=== PATIENT | female | born 2000 | race Caucasian/White ===

== ENCOUNTER 2020-09-08 09:19 | Outpatient (REF) | payer MEDICAID, SELFPAY ==
[2020-09-08 19:44] LABS: CT PCR NOT DETECTED (Not Detect.); NG PCR NOT DETECTED (Not Detect.)
== END 2020-09-08 09:20 | disposition home or self-care (01) ==
LOC: HO.LAB 09:19
PROVIDERS: PCP Family Medicine; Visit Provider Advanced Practice Midwife
DX: Z30.09 Encounter for other general counseling and advice on contraception (principal); N93.9 Abnormal uterine and vaginal bleeding, unspecified; R10.2 Pelvic and perineal pain; Z20.2 Contact with and (suspected) exposure to infections with a predominantly sexual mode of transmission
CPT/HCPCS: 87491; 87591; 99212

== ENCOUNTER 2020-10-20 16:13 | Outpatient (REF) | payer MEDICAID, SELFPAY | END 2020-10-20 16:14 | disposition home or self-care (01) | LOC: HO.LAB 16:13 | PROVIDERS: Visit Provider Internal Medicine | DX: Z20.822 Contact with and (suspected) exposure to COVID-19 (principal) | CPT/HCPCS: 36415; C9803; U0003 ==

== ENCOUNTER → 2021-04-13 11:29 | Outpatient (BNVA) | payer MEDICAID, SELFPAY | PROVIDERS: PCP Family Medicine; Visit Provider Advanced Practice Midwife ==

== ENCOUNTER → 2021-04-14 11:47 | Outpatient (BNVA) | payer MEDICAID, SELFPAY | PROVIDERS: PCP Family Medicine; Visit Provider Advanced Practice Midwife ==

== ENCOUNTER 2021-06-09 19:22 | Emergency (ER) | payer MEDICAID, SELFPAY ==
--- NOTE | 2021-06-09 20:06 | PC.NURSE ---
called for campaign management specialist
[2021-06-09 20:16] VITALS: BP 105/56; PULSE 74; RESP 17; TEMP 36.8; O2SAT 100
[2021-06-09 20:36] LABS: COVID-19 Test Positive (Negative); IDNOW Serial# 08D9AD1C; IDNOW Serial# 9DD0AD1C; Strep A Nucleic Acid Negative (Negative)
--- NOTE | 2021-06-09 20:38 | ED_ITS ---
HPI - General Adult General Chief complaint: General Medical Stated complaint: sore throat Time Seen by Provider: 06/09/21 20:38 Source: patient Mode of arrival: ambulatory Limitations: language barrier History of Present Illness HPI narrative: 21 y/o female with no medical history presents to the ER with 3 days of sore throat. She reports pain is worse when trying to eat or drink. It feels scratchy when she tries to swallow but she is able to eat and drink okay. No fever or chills. No sick contacts. She is not vaccinated against COVID. complaint: sore throat Onset (ago): day(s) (3) Location: mouth Radiation: non-radiation Severity: moderate Severity scale (1-10): 6 Quality: aching and sharp Pain Consistency: intermittent Relieving factors: none Exacerbating factors: eating Associated symptoms: denies other symptoms Treatments prior to arrival: none Related Data Home Medications Medication Instructions Recorded Confirmed ferrous sulfate 325 mg (65 mg 325 mg PO DAILY 09/08/20 09/08/20 iron) tablet Previous Rx's Medication Instructions Recorded medroxyprogesterone 150 mg/mL 150 mg IM [id number] #1 ml 04/14/21 intramuscular suspension (Depo-Provera) Allergies Allergy/AdvReac Type Severity Reaction Status Date / Time SEAFOOD Allergy Unknown ANAPHYLAXIS Uncoded 07/03/20 19:07 Shell fish Allergy Unknown swelling Uncoded 05/01/20 00:00 Review of Systems Constitutional: Constitutional: Denies body ache(s), Denies chills, Denies fever(s) and Denies headache(s) Eyes: Eyes: Reports no additional eye complaints ENT: Reports Normal hearing present, Denies headache(s), Denies lip swelling, Denies nasal congestion, Denies neck pain, Denies nose pain, Reports sore throat and Denies throat swelling Cardiovascular: Cardiovascular: Denies chest pain and Denies dyspnea Respiratory: Respiratory: Denies cough and Denies dyspnea Gastrointestinal: Gastrointestinal: Denies abdominal pain, Denies nausea and Denies vomiting Musculoskeletal: Musculoskeletal: Denies myalgias and Denies neck pain Neurologic: Reports Normal hearing present and Denies headache(s) Psychiatric: Psychiatric: Reports anxiety Allergic/Immunologic: Allergic/Immunologic: Denies lip swelling and Denies throat swelling [facility] Past Medical History Medical History (Updated 06/09/21 @ 20:39 by JULIET Clifton) No pertinent past medical history Family History Family History Maternal Grandmother Diabetes mellitus Paternal Grandfather Diabetes mellitus HTN (hypertension) Maternal Grandfather HTN (hypertension) Social History Social History Alcohol intake: never Advance Directives: No Advance Directives Information Provided: No Patient : No Gender identity: Female Physical Exam Vital Signs: Vital Signs: Last Vital Signs Temp 98.3 F 06/09/21 20:16 Pulse 74 06/09/21 20:16 Resp 17 06/09/21 20:16 BP 105/56 L 06/09/21 20:16 Pulse Ox 100 06/09/21 20:16 Body Mass Index 20.0 Const: General: cooperative, healthy appearing, comfortable and no acute distress Nutritional Appearance: average body habitus Orientation/consciousness: patient oriented x3 HENMT: Head: Yes normal to inspection Ears: hearing grossly normal bilaterally and external ears normal General nose exam: Normal external nose present and Normal nares present Face and sinus: Yes normal facial exam and Yes sinuses nontender Mouth: Normal oral and palatal mucosa present, lip normal, tongue normal and moist mucous membranes Teeth and gingiva: dentition normal and gingiva normal Throat: Yes uvula midline and Yes posterior oropharynx abnormal (bilateral tonsillar swelling and erythema without exudate) Eyes: General: appearance normal, both eyes and all related structures Neck: Neck: Yes normal visual inspection, Yes no lymphadenopathy and Yes trachea midline Chest: Chest palpation & inspection: normal inspection of the chest Resp: Effort & Inspection: normal respiratory effort and able to speak in complete sentences Auscultation: clear to auscultation bilaterally Cardio: Rate: regular rate Rhythm: regular rhythm Heart sounds: S1 normal heart sound present and S2 normal heart sound present Skin: General skin exam: no rashes or lesions noted Neuro: General: patient oriented x3 Cranial nerves: Yes Normal hearing present Extrem: General: Yes normal to inspection and Yes no calf tenderness Course Course Course Narrative: 21 yo female presenting with sore throat x3 days. Nontoxic appearing. VS are stable. Tonsils are swollen and erythematous, normal voice and handling secretions normally. No exudates or evidence of abscess. Strep and COVID pending. Reevaluation(s) Reevaluation #1: Strep NEG and COVID POSITIVE. Used temporary staff accountant to discuss results, management and warning signs to prompt urgent re-evaluation. Stable for evaluation. Medical Decision Making Lab Data Labs: Lab Results 06/09/21 06/09/21 Range/Units 20:23 20:23 COVID-19 ([facility]) Positive A (Negative) COVID-19 Clin Com See Note S. pyogenes GrpA DAYANA Negative (Negative) Critical Care Time Critical Care Time Critical Care Time: No Discharge Plan Discharge Clinical Impression: COVID-19 Patient Disposition: Home, Self-Care Instructions: COVID-19 (Coronavirus Disease 2019) (ED) Additional Instructions: You were found to be COVID-19 POSITIVE today. Your oxygen levels were normal. Rest. Drink plenty of fluids. Do not go out in public for the next 10 days. Take over the counter cold/flu medications as needed for your symptoms. Take Tylenol and/or Motrin as needed for fevers and body aches. Follow up with your doctor this week. If you shortness of breath worsens , if you develop difficulty breathing or any other concerning symptom come back to the ER for further evaluation. Prescriptions: No Action ferrous sulfate 325 mg (65 mg iron) tablet 325 mg PO DAILY RF: 0 medroxyprogesterone [Depo-Provera] 150 mg/mL suspension 150 mg IM [id number] Qty: 1 RF: 3 Interventions: ED Discharge Assessment Last Done: 06/09/21 21:15 Print Language: Cape Verdean
== END 2021-06-09 21:18 | disposition home or self-care (01) ==
PROVIDERS: Emergency Provider Emergency Medicine; PCP Family Medicine
DX: U07.1 COVID-19 (principal)
CPT/HCPCS: 36415; 87635; 87651; 99283

== ENCOUNTER 2021-07-07 16:43 | Emergency (ER) | payer MEDICAID, SELFPAY ==
[2021-07-07 18:53] VITALS: BP 119/67; PULSE 56; RESP 18; TEMP 37.2; O2SAT 99; BMI 18.8
[2021-07-07 19:25] LABS: COVID-19 Test Negative (Negative)
[2021-07-07 21:17] VITALS: BP 114/71; PULSE 58; RESP 20; TEMP 36.8; O2SAT 100
--- NOTE | 2021-07-07 21:42 | ED_ITS ---
HPI - General Adult General Chief complaint: General Medical Stated complaint: Sore thrat Time Seen by Provider: 07/07/21 21:14 Source: patient Mode of arrival: ambulatory Limitations: no limitations History of Present Illness HPI narrative: Patient presents to ED for loss of taste for couple days and slight headache. Patient was positive for COVID in mid May. Patient states her friend who she lives with also having similar symptoms consist of loss of taste. Denies any fever, chest pain, shortness of breath. Related Data Home Medications Medication Instructions Recorded Confirmed ferrous sulfate 325 mg (65 mg 325 mg PO DAILY 09/08/20 09/08/20 iron) tablet Previous Rx's Medication Instructions Recorded medroxyprogesterone 150 mg/mL 150 mg IM [id number] #1 ml 04/14/21 intramuscular suspension (Depo-Provera) Allergies Allergy/AdvReac Type Severity Reaction Status Date / Time SEAFOOD Allergy Unknown ANAPHYLAXIS Uncoded 07/03/20 19:07 Shell fish Allergy Unknown swelling Uncoded 05/01/20 00:00 Review of Systems Review of Systems: Yes all other systems are reviewed and are negative Constitutional: Constitutional: Reports as per HPI and Reports no additional constitutional complaints Eyes: Eyes: Reports as per HPI and Reports no additional eye complaints ENT: Reports system reviewed and no additional complaints, except as documented and Reports as per HPI Comments: loss of smell and headache Cardiovascular: Cardiovascular: Reports as per HPI and Reports no additional cardiovascular complaints Respiratory: Respiratory: Reports as per HPI and Reports no additional respiratory complaints Gastrointestinal: Gastrointestinal: Reports as per HPI and Reports no additional gastrointestinal complaints Musculoskeletal: Musculoskeletal: Reports no additional musculoskeletal complaints and Reports as per HPI Neurologic: Reports system reviewed and no additional complaints, except as documented and Reports as per HPI Psychiatric: Psychiatric: Reports no additional psychiatric complaints and Reports as per HPI Endocrine: Endocrine: Reports no additional endocrine complaints and Reports as per HPI [facility] Past Medical History Medical History (Updated 07/08/21 @ 00:02 by Juancarlos Torrez) No pertinent past medical history Family History Family History Maternal Grandmother Diabetes mellitus Paternal Grandfather Diabetes mellitus HTN (hypertension) Maternal Grandfather HTN (hypertension) Social History Social History Alcohol intake: never Advance Directives: No Advance Directives Information Provided: No Patient : No Gender identity: Female Physical Exam Vital Signs: Vital Signs: Last Vital Signs Temp 98.3 F 07/07/21 21:17 Pulse 58 07/07/21 21:17 Resp 20 07/07/21 21:17 BP 114/71 07/07/21 21:17 Pulse Ox 100 07/07/21 21:17 Body Mass Index 18.8 Const: General: cooperative, healthy appearing, comfortable, no acute distress, well developed, alert, awake and Physically active Orientation/consciousness: patient oriented x3 HENMT: Head: Yes normal to inspection, Yes No palpable skull fracture present, Yes normocephalic, Yes atraumatic and No abrasion Eyes: General: appearance normal, both eyes and all related structures Neck: Neck: Yes normal visual inspection, Yes full ROM, Yes no lymphadenopathy, Yes no meningeal signs, Yes trachea midline, Yes supple and No tender Chest: Chest palpation & inspection: normal inspection of the chest and normal palpation of entire chest wall Resp: Effort & Inspection: normal respiratory effort and able to speak in complete sentences Auscultation: clear to auscultation bilaterally Cardio: Jugular venous distension: no JVD Heart sounds: S1 normal heart sound present and S2 normal heart sound present GI: Inspection: Yes normal to inspection and No abdominal wall ecchymosis Palpation (GI): Soft to palpation, not firm, nontender, no guarding and not rigid : General: No CVA tenderness and Yes no CVA tenderness Back/Spine/Pelvis: Back: no CVA tenderness, No CVA tenderness and No back tenderness Skin: General skin exam: no rashes or lesions noted and elasticity normal Neuro: General: patient oriented x3, no meningeal signs and CN's II-XI intact bilaterally Cranial nerves: Yes CN's II-XII intact bilaterally Extrem: General: Yes normal to inspection and Yes full ROM Psych: Appearance: grossly normal, well kempt and not disheveled Course Course Course Narrative: Patient had COvid test ordered. Reevaluation(s) Reevaluation #1: Patient covid test is negative. Patient informed this may be continued side effects of covid. 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 negativa. Es posible que padezca s?ntomas continuos posteriores al COVID o que se trate de mary nueva infecci?n. Recomiende repetir la prueba en 72 horas si los s?ntomas empeoran. Andi un seguimiento con daly proveedor de atenci?n primaria. Regrese al servicio de urgencias si tiene dolor de pecho, dificultad para respirar, dolor de luis felipe, mareos o cualquier otro s?ntoma preocupante. Prescriptions: No Action ferrous sulfate 325 mg (65 mg iron) tablet 325 mg PO DAILY RF: 0 medroxyprogesterone [Depo-Provera] 150 mg/mL suspension 150 mg IM [id number] Qty: 1 RF: 3 Stand Alone Forms: Work/School Release Interventions: ED Discharge Assessment Last Done: 07/07/21 22:16 Discharge Date/Time: 07/07/21 22:19 Print Language: Turkish
== END 2021-07-07 22:19 | disposition home or self-care (01) ==
PROVIDERS: Emergency Provider Emergency Medicine Emergency Medical Services; PCP Family Medicine
DX: R43.8 Other disturbances of smell and taste (principal); Z20.822 Contact with and (suspected) exposure to COVID-19; Z86.16 Personal history of COVID-19; Z79.899 Other long term (current) drug therapy
CPT/HCPCS: 36415; 87635; 99283

== ENCOUNTER → 2021-09-03 11:26 | Outpatient (BNVA) | payer MEDICAID, SELFPAY | PROVIDERS: PCP Family Medicine; Visit Provider Advanced Practice Midwife ==

== ENCOUNTER → 2021-09-04 15:06 | Outpatient (BNVA) | payer MEDICAID, SELFPAY | PROVIDERS: PCP Family Medicine; Visit Provider Advanced Practice Midwife | DX: Z30.42 Encounter for surveillance of injectable contraceptive (principal); Z91.013 Allergy to seafood; Z23 Encounter for immunization | CPT/HCPCS: 96372; 99211 ==

== ENCOUNTER 2021-09-14 15:32 | Outpatient (REF) | payer MEDICAID, SELFPAY | END 2021-09-14 15:33 | disposition home or self-care (01) | LOC: HO.LAB 15:32 | PROVIDERS: Visit Provider Internal Medicine | DX: Z13.89 Encounter for screening for other disorder (principal) ==

== ENCOUNTER 2021-09-30 13:19 | Outpatient (REF) | payer MEDICAID, SELFPAY ==
[2021-10-01 01:29] LABS: CT PCR NOT DETECTED (Not Detect.); NG PCR NOT DETECTED (Not Detect.)
[2021-10-01 11:07] LABS: BV Int Neg Control Negative (Negative); BV Int Pos Control Positive (Positive)
== END 2021-09-30 13:20 | disposition home or self-care (01) ==
LOC: HO.LAB 13:19
PROVIDERS: PCP Family Medicine; Visit Provider Advanced Practice Midwife
DX: Z01.419 Encounter for gynecological examination (general) (routine) without abnormal findings (principal); B37.3 Candidiasis of vulva and vagina; Z91.013 Allergy to seafood; Z91.410 Personal history of adult physical and sexual abuse; Z11.59 Encounter for screening for other viral diseases; Z11.4 Encounter for screening for human immunodeficiency virus [HIV]; Z11.3 Encounter for screening for infections with a predominantly sexual mode of transmission
CPT/HCPCS: 87480; 87491; 87510; 87591; 87660; 99212

== ENCOUNTER → 2021-11-23 15:16 | Outpatient (BNVA) | payer MEDICAID, SELFPAY | PROVIDERS: PCP Family Medicine; Visit Provider Advanced Practice Midwife | DX: Z30.42 Encounter for surveillance of injectable contraceptive (principal) | CPT/HCPCS: 96372 ==

== ENCOUNTER 2021-11-25 13:43 | Outpatient (REF) | payer MEDICAID, SELFPAY ==
[2021-11-26 03:40] LABS: CT PCR NOT DETECTED (Not Detect.); NG PCR NOT DETECTED (Not Detect.)
[2021-11-26 09:20] LABS: BV Int Neg Control Negative (Negative); BV Int Pos Control Positive (Positive)
== END 2021-11-25 13:44 | disposition home or self-care (01) ==
LOC: HO.LAB 13:43
PROVIDERS: PCP Family Medicine; Visit Provider Advanced Practice Midwife
DX: Z01.411 Encounter for gynecological examination (general) (routine) with abnormal findings (principal); B37.3 Candidiasis of vulva and vagina; N89.8 Other specified noninflammatory disorders of vagina; Z20.2 Contact with and (suspected) exposure to infections with a predominantly sexual mode of transmission
CPT/HCPCS: 87255; 87480; 87491; 87510; 87591; 87660; 99212

== ENCOUNTER 2021-11-26 17:03 | Emergency (ER) | payer MEDICAID, SELFPAY ==
[2021-11-26 17:06] VITALS: BP 119/41; PULSE 79; RESP 18; TEMP 36.7; O2SAT 99; BMI 20.8
--- NOTE | 2021-11-26 17:53 | ED_ITS ---
HPI - Female Genitourinary General Chief complaint: General Medical Stated complaint: body rash Time Seen by Provider: 11/26/21 17:36 Source: patient Mode of arrival: ambulatory Limitations: language barrier (Gabonese-speaking, pediatric medical assistant utilized) History of Present Illness HPI Narrative: Patient is a 21-year-old female with past history of STI. She was evaluated by her surgery specialist doctor yesterday patient experiences vaginal itching of the brain and reasons to her right labia that were painful. She had testing for bacterial vaginosis, chlamydia, gonorrhea, and herpes. She was discharged home with a prescription for clotrimazole vaginal cream. She states that she used the same clotrimazole vaginal cream that she purchased [id number] for 4 days last week without any improvement in her symptoms. Today, she came to the emergency department as she is concerned because she continues to have vaginal itching with white and yellow discharge and discomfort. She reports that she has not been sexually active over the past 5 months. She does have a history of a chlamydial infection, for which she was treated 3 months ago. She denies any abnormal vaginal bleeding. Additionally, she is requesting a work note that states she may return to work on Tuesday11/30/2021 as her current note states she can return 12/01/2021. MD elicited complaint: vaginal discharge, possible STD, genital rash and genital itching Pertinent past history: STI/STD Onset (ago): day(s) Location of symptoms: external genitalia Vaginal discharge: white, yellow and thick/cheesy Vaginal bleeding: none Associated symptoms: denies other symptoms Treatment prior to arrival: OTC vaginal cream Sexual activity: No Patient : No Related Data Previous Rx's Medication Instructions Recorded medroxyprogesterone 150 mg/mL 150 mg IM [id number] #1 ml 09/03/21 intramuscular suspension (Depo-Provera) clotrimazole 1 % vaginal cream 1 appful VAGINAL BEDTIME #45 g 11/25/21 metronidazole 500 mg tablet 500 mg PO BID 7 Days #14 tab 11/26/21 Allergies Allergy/AdvReac Type Severity Reaction Status Date / Time SEAFOOD Allergy Unknown ANAPHYLAXIS Uncoded 11/25/21 13:55 Shell fish Allergy Unknown swelling Uncoded 09/30/21 13:39 Review of Systems Review of Systems: Constitutional : No Fever, No Chills ENT/Mouth : No sore throat, No Rhinorrhea Eyes: No Eye Pain, No Redness Cardiovascular : No Chest Pain, No SOB Respiratory : No Cough, No Sputum, No Wheezing Gastrointestinal : No Nausea, No Vomiting, No Diarrhea, No abdominal pain, Genitourinary : Abnormal discharge and vaginal lesions. No irregular bleeding, No Dysuria, No Urinary Frequency, Nopelvic pain Musculoskeletal : No Myalgias Neuro : No Weakness, No Headache Psych : No Anxiety/Panic, No Depression Heme/Lymph: No bruising, No Lymphadenopathy Endocrine : No Polyuria, No Polydipsia All other systems reviewed and are negative REPLACED BY [facility] Past Medical History Attestation statement: The following information was validated with the patient. Source: old records reviewed Medical History No pertinent past medical history Family History Family History Maternal Grandmother Diabetes mellitus Paternal Grandfather Diabetes mellitus HTN (hypertension) Maternal Grandfather HTN (hypertension) Social History Social History Alcohol intake: never Patient Tobacco Use Status: Never used Tobacco Advance Directives: No Advance Directives Information Provided: No Gender identity: Female Physical Exam 2 Vital Signs: Vital Signs: Last Vital Signs Temp 98.1 F 11/26/21 17:06 Pulse 79 11/26/21 17:06 Resp 18 11/26/21 17:06 BP 119/41 L 11/26/21 17:06 Pulse Ox 99 11/26/21 17:06 BMI result Body Mass Index 20.8 Vital signs have been reviewed as normal and appeared to be correct. Blood pressure normal.? Heart rate normal.? Respiration rate normal. Temperature normal.? Oxygen saturation normal. Appearance: Alert.?Oriented to person, place and time. No acute distress.?Normal affect. Eyes: Pupils equal, round and reactive to light.? ENT: Pharynx normal.?? Neck: Normal inspection.? Neck supple.?? CVS: Heart sounds normal. Normal heart rate and rhythm.? Pulses normal.?? Respiratory: No respiratory distress.? Lung sounds clear to auscultation bilaterally?? Abdomen: Soft and non-tender. Genitourinary: ?She declined genital urinary exam at today's visit Skin: Skin warm and dry.? Normal skin color.? Normal skin turgor.?? Extremities: No lower extremity edema.? Neuro: Moves all extremities spontaneously. Ambulates with normal steady gait. Course Course Course Narrative: Patient is a 21-year-old female being evaluated for continued vaginal itching and discharge. Review of her chart indicates negative testing for chlamydia and gonorrhea with herpes culture still pending. She did test positive for COVID at and [place]. Patient will receive a single dose of Diflucan in the emergency department, and given a prescription for Flagyl 500 mg twice daily for 1 week for the bacterial vaginosis. Reviewed these findings with patient advised that she should not consume alcohol while taking Flagyl. Her current symptoms are consistent with yeast infection and BV. I was unable to visualize vaginal lesions as she declined, but I did advise as recommended by her surgery specialist provider should any of the vesicles presently there open up she can contact th eir office to arrange for repeat testing as the herpes culture can be a false negative if there is no fluid or open lesion to be cultured during the initial specimen obtained. Patient overall is well appearing, nontoxic, afebrile, not tachycardic. She is stable for discharge home, discussed reasons to return to the emergency department, an appropriate follow-up with surgery specialist, all questions answered, she is agreeable with the plan of care Discharge Plan Discharge Clinical Impression: Bacterial vaginosis, Vaginal candidiasis, Vaginal lesion Patient Disposition: Home, Self-Care Instructions: Bacterial Vaginosis (ED), Yeast Infection (ED) Additional Instructions: You have been given a new prescription for metronidazole an antibiotic that you take twice a day for 1 week this is for the treatment of bacterial vaginosis as we discussed it is important not to consume any alcohol while taking this medication. In addition, you received a dose of Diflucan, and anti-fungal in the emergency department this is just a single dose medication. The testing for herpes is still pending at this time. You should be contacted by the surgery specialist doctor tomorrow, you should advise them that you came to the emergency department and were treated here, as your testing was initially obtained from their office. If you have any worsening symptoms or concerns you are welcome to return to the emergency department or contact your doctor. Prescriptions: New metronidazole 500 mg tablet 500 mg PO BID 7 Days Qty: 14 0RF No Action clotrimazole 1 % cream 1 appful vaginal BEDTIME Qty: 45 2RF medroxyprogesterone [Depo-Provera] 150 mg/mL suspension 150 mg IM [id number] Qty: 1 3RF Stand Alone Forms: Work/School Release Interventions: ED Discharge Assessment Last Done: 11/26/21 18:17 Print Language: Gabonese
[2021-11-26] MEDS: Fluconazole 150 MG TABLET PO (18:02)
== END 2021-11-26 18:17 | disposition home or self-care (01) ==
PROVIDERS: Emergency Provider Emergency Medicine Emergency Medical Services; PCP Family Medicine
DX: R21 Rash and other nonspecific skin eruption (principal); Z79.899 Other long term (current) drug therapy
CPT/HCPCS: 99283

== ENCOUNTER → 2021-11-30 15:56 | Outpatient (BNVA) | payer MEDICAID, SELFPAY | PROVIDERS: Visit Provider Advanced Practice Midwife ==

== ENCOUNTER 2022-04-12 15:10 | Outpatient (REF) | payer MEDICAID, SELFPAY ==
[2022-04-12 15:47] LABS: Hematocrit 33.6 % (37.0-47.0); Hemoglobin 10.7 g/dl (12.0-16.0); Mean Corpuscular HGB Conc 31.8 g/dl (31.0-35.0); Mean Corpuscular Hemoglobin 25.7 pg (27.0-33.0); Mean Corpuscular Volume 80.8 fL (80.0-98.0); Mean Platelet Volume 10.9 fL (9.4-12.3); Platelet Count 305 X10*3/uL (160-400); Red Blood Count 4.16 X10*6/uL (4.20-5.50); Red Cell Distribution Width 14.8 % (11.0-16.0); White Blood Count 5.4 X10*3/uL (4.8-10.8)
[2022-04-12 16:34] LABS: HCG Quantitative < 2 mIU/mL; TSH reflex Free T4 0.73 uIU/mL (0.32-4.0)
[2022-04-12 16:36] LABS: Syphilis Screen Nonreactive (Nonreactive)
[2022-04-13 03:11] LABS: CT PCR NOT DETECTED (Not Detect.); NG PCR NOT DETECTED (Not Detect.)
[2022-04-13 08:18] LABS: HBsAGNum1 0.29 S/CO (0.00-0.99); HIV AB/AG Nonreactive (Nonreactive); HIV Num 1 0.09 S/CO (0.00-0.99); Hepatitis B Surface Antigen Negative (Negative); ~HepC Num1 0.09 S/CO (0.00-0.79); ~Hepatitis C Antibody Nonreactive (Nonreactive)
[2022-04-13 09:23] LABS: BV Int Neg Control Negative (Negative); BV Int Pos Control Positive (Positive)
== END 2022-04-12 15:11 | disposition home or self-care (01) ==
LOC: HO.LAB 15:10
PROVIDERS: PCP Family Medicine; Visit Provider Advanced Practice Midwife
DX: Z30.42 Encounter for surveillance of injectable contraceptive (principal); N93.9 Abnormal uterine and vaginal bleeding, unspecified; B37.3 Candidiasis of vulva and vagina; Z20.2 Contact with and (suspected) exposure to infections with a predominantly sexual mode of transmission; Z91.410 Personal history of adult physical and sexual abuse
CPT/HCPCS: 36415; 84443; 84702; 85027; 86780; 86803; 87340; 87389; 87480; 87491; 87510; 87591; 87660; 99212

== ENCOUNTER → 2022-06-04 08:54 | Outpatient (BNVA) | payer MEDICAID, SELFPAY | PROVIDERS: PCP Family Medicine; Visit Provider Advanced Practice Midwife | DX: Z30.011 Encounter for initial prescription of contraceptive pills (principal); N93.9 Abnormal uterine and vaginal bleeding, unspecified | CPT/HCPCS: 99212 ==

== ENCOUNTER 2022-07-21 14:23 | Outpatient (REF) | payer MEDICAID, SELFPAY ==
--- NOTE | ~2022-07-21 | US_ITS ---
EXAMINATION: US PELVIS CLINICAL INFORMATION: Abnormal uterine and vaginal bleeding. COMPARISON: None. TECHNIQUE: Ultrasound of the pelvis is performed using both transabdominal and transvaginal transducers along with Doppler. Transvaginal imaging is performed due to inadequate visualization transabdominally. FINDINGS: UTERUS: The uterus is retroverted, retroflexed and measures 8.2 x 4.3 x 4.2 cm. The double wall endometrial thickness is 0.5 cm. The uterus is smooth in contour and has normal myometrial echogenicity. No visible fibroid. There is small amount of fluid within the vaginal strip. The external os is visualized on transabdominal exam only. ADNEXA: Both ovaries are visualized. There is normal color flow to the adnexa. There is no ovarian torsion. There is no pelvic ascites or fluid collection. Right ovary measures 3.4 x 2.2 x 2.6 cm and volume 10.2 mL. It appears unremarkable. Left ovary measures 3.4 x 2.1 x 2.1 cm and volume 2.1 mL. It appears unremarkable. There is small amount of free fluid in the cul-de-sac. US/US pelvic and transvaginal IMPRESSION: Unremarkable uterus. Small amount of fluid within the vaginal stripe. Unremarkable ovaries.
== END 2022-07-21 14:24 | disposition home or self-care (01) ==
LOC: HO.US 14:23
PROVIDERS: Visit Provider Nurse Practitioner Family
DX: N93.9 Abnormal uterine and vaginal bleeding, unspecified (principal)
CPT/HCPCS: 76830; 76856

== ENCOUNTER → 2022-08-04 14:03 | Outpatient (BNVA) | payer MEDICAID, SELFPAY | PROVIDERS: PCP Family Medicine; Visit Provider Advanced Practice Midwife | DX: Z51.81 Encounter for therapeutic drug level monitoring (principal); Z20.2 Contact with and (suspected) exposure to infections with a predominantly sexual mode of transmission; N93.9 Abnormal uterine and vaginal bleeding, unspecified; A54.9 Gonococcal infection, unspecified | CPT/HCPCS: 99212 ==

== ENCOUNTER 2022-08-06 09:57 | Outpatient (REF) | payer MEDICAID, SELFPAY ==
[2022-08-06 11:36] LABS: HBsAGNum1 0.22 S/CO (0.00-0.99); HIV AB/AG Nonreactive (Nonreactive); HIV Num 1 0.08 S/CO (0.00-0.99); Hepatitis B Surface Antigen Negative (Negative); ~HepC Num1 0.14 S/CO (0.00-0.79); ~Hepatitis C Antibody Nonreactive (Nonreactive)
[2022-08-06 11:39] LABS: Syphilis Screen Nonreactive (Nonreactive)
== END 2022-08-06 09:58 | disposition home or self-care (01) ==
LOC: HO.LAB 09:57
PROVIDERS: Visit Provider Advanced Practice Midwife
DX: Z11.4 Encounter for screening for human immunodeficiency virus [HIV] (principal); Z20.2 Contact with and (suspected) exposure to infections with a predominantly sexual mode of transmission
CPT/HCPCS: 36415; 86780; 86803; 87340; 87389

== ENCOUNTER 2022-09-14 15:36 | Outpatient (REF) | payer MEDICAID, SELFPAY ==
[2022-09-15 14:38] LABS: CT PCR NOT DETECTED (Not Detect.)
[2022-09-15 14:39] LABS: NG PCR NOT DETECTED (Not Detect.)
[2022-09-16 13:57] LABS: BV Int Neg Control Negative (Negative); BV Int Pos Control Positive (Positive)
== END 2022-09-14 15:37 | disposition home or self-care (01) ==
LOC: HO.LNP 15:36
PROVIDERS: Visit Provider Advanced Practice Midwife
DX: Z11.3 Encounter for screening for infections with a predominantly sexual mode of transmission (principal); Z20.2 Contact with and (suspected) exposure to infections with a predominantly sexual mode of transmission
CPT/HCPCS: 87480; 87491; 87510; 87591; 87660; 99212

== ENCOUNTER 2023-02-15 08:45 | Emergency (ER) | payer MEDICAID, SELFPAY ==
--- NOTE | ~2023-02-15 | US_ITS ---
EXAMINATION: US OBSTETRICAL ULTRASOUND CLINICAL INFORMATION: Pelvic pain COMPARISON: None available.. LMP: 01/09/2023. Gestational age by maternal dates is 5 weeks 2 days. Estimated date of delivery by maternal dates is 10/16/2023. TECHNIQUE: Transabdominal and transvaginal first trimester OB ultrasound. Transvaginal exam for better visualization of the gestational sac. FINDINGS: The uterus is normal in size and shape. There is an intrauterine gestational sac and yolk sac. Mean sac diameter measures 0.76 cm which would suggest gestational age of 5 weeks 3 days. There is a yolk sac. The right ovary measures 3.9 x 2.4 x 2.3 cm. There is a 2.2 x 1.8 x 1.8 cm thick-walled cyst suggestive of a corpus luteum. The left ovary measures 3.6 x 1.7 x 2.5 cm and is normal-appearing. There is a small amount of fluid in the pelvis. US/US OB <= 14 weeks fetus IMPRESSION: Intrauterine gestational sac and yolk sac. Mean sac diameter suggests gestational age 5 weeks 3 days.
[2023-02-15 08:49] VITALS: BP 129/64; PULSE 85; RESP 18; TEMP 37.1; O2SAT 100; BMI 20.7
[2023-02-15 09:45] LABS: Appearance Urine Clear; Color Urine Yellow; Glucose Urine UA Negative (Negative); Leukocyte Esterase Urine Negative (Negative); Nitrite Urine Negative (Negative); PH 5.5 (5.0-9.0); Specific Gravity - Urine 1.025 (1.005-1.025); Urine Blood Negative (Negative); Urine Ketones 40 mg/dL (Negative); Urine Protein Trace mg/dL (Neg-Trace)
[2023-02-15 09:47] LABS: UPreg QC Valid YES; Urine Pregnancy POSITIVE (NEGATIVE)
--- NOTE | 2023-02-15 09:50 | ECG_ITS ---
Test Reason : dizziness/ nausea Blood Pressure : / mmHG Vent. Rate : 068 BPM Atrial Rate : 068 BPM P-R Int : 140 ms QRS Dur : 076 ms QT Int : 424 ms P-R-T Axes : 042 093 066 degrees QTc Int : 450 ms Normal sinus rhythm Rightward axis Borderline ECG No previous ECGs available Referred By: Radha Busby Electronically Signed By:TYLER NUNEZ MD
--- NOTE | 2023-02-15 10:16 | ED.GENADULT ---
HPI - General Adult General Chief complaint: General Medical Stated complaint: Headache Time Seen by Provider: 02/15/23 09:45 Source: patient, RN notes reviewed and old records reviewed History of Present Illness HPI narrative: 22-year-old female presenting to the ED complaining of fatigue, nausea, intermittent lower abdominal/pelvic discomfort, intermittent lightheadedness, and + home test yesterday. Denies lightheadedness at present. LMP 3/24. Denies vaginal bleeding, vaginal discharge, vomiting, diarrhea, dysuria/hematuria. Patient admits she is currently on Depo-Provera, called her [facility] without answer Onset (ago): day(s) Related Data Previous Rx's Medication Instructions Recorded fluconazole 150 mg tablet 150 mg PO DAILY 1 dose #1 tab 09/16/22 (Diflucan) Allergies Allergy/AdvReac Type Severity Reaction Status Date / Time SEAFOOD Allergy Unknown ANAPHYLAXIS Uncoded 09/14/22 15:19 Shell fish Allergy Unknown swelling Uncoded 09/14/22 15:19 Review of Systems Review of Systems: Constitutional: No Fever, No Chills, + Fatigue, No Malaise ENT/Mouth: No Ear Pain, No Nasal Congestion, No sore throat, No Rhinorrhea, No Swallowing Difficulty Eyes: No Eye Pain, No Swelling, No Redness, No Vision Changes Cardiovascular: No Chest Pain, No SOB Respiratory: No Cough, No Sputum, No Dyspnea Gastrointestinal: + Nausea, No Vomiting, No Diarrhea, No Constipation, + Abdominal pain Genitourinary: No irregular bleeding, No Dysuria, No Urinary Frequency, No Hematuria, No Flank Pain Musculoskeletal: No joint pain, No Myalgias, No Joint Swelling Skin: No Skin Lesions, No rash Neuro: No Weakness, No Numbness, No Paresthesias, No Loss of Consciousness, + lightheaded, No Headache Yes all other systems are reviewed and are negative Constitutional: Constitutional: Reports as per [facility] Past Medical History Attestation statement: The following information was validated with the patient. Medical History No pertinent past medical history Family History Family History Maternal Grandmother Diabetes mellitus Paternal Grandfather Diabetes mellitus HTN (hypertension) Maternal Grandfather HTN (hypertension) Maternal Grandfather Liver cancer Sister Ovarian cancer Social History Social History Alcohol intake: never Patient Tobacco Use Status: Never used Tobacco Advance Directives: No Advance Directives Information Provided: No Gender identity: Female Physical Exam ED Vital Signs: Vital Signs - 24 hr 02/15/23 08:49 Temperature 98.7 F Pulse Rate 85 Respiratory Rate 18 Blood Pressure 129/64 Pulse Oximetry 100 Oxygen Delivery Method Room Air BMI result Body Mass Index 20.7 Const General: cooperative, healthy appearing and no acute distress Orientation/consciousness: patient oriented x3 Limitations: no limitations HENMT Head: Yes normal to inspection and Yes atraumatic Ears: hearing grossly normal bilaterally General nose exam: Normal external nose present Face and sinus: Yes normal facial exam Eyes General: appearance normal, both eyes and all related structures EOM: EOMs intact bilaterally Neck Neck: Yes normal visual inspection and Yes no meningeal signs Resp Effort & Inspection: normal respiratory effort and no respiratory distress Auscultation: clear to auscultation bilaterally Cardio Rate: regular rate Heart sounds: S1 normal heart sound present and S2 normal heart sound present GI Inspection: Yes normal to inspection Palpation (GI): Soft to palpation, nontender, no guarding and not rigid General: Yes no CVA tenderness OB/external & speculum: Deferred OB/external & speculum exam Back/Spine/Pelvis Back: no CVA tenderness Skin Rashes: no rashes Wounds: no wounds Neuro General: patient oriented x3, gait normal, tone normal, moves all extremities, no meningeal signs, no focal motor deficits and CN's II-XI intact bilaterally Gait exam (Neuro): Normal gait present Extrem General: Yes normal to inspection Course Course Course Narrative: -1020--UA with 40 ketones, not infected, positive urine -1327--no leukocytosis. H&H stable. Labs otherwise reassuring. Beta quant 3925 US OB <= 14 weeks fetus IMPRESSION: Intrauterine gestational sac and yolk sac. Mean sac diameter suggests gestational age 5 weeks 3 days. Threatened precautions discussed with patient with pan cleaner, recommended very close follow-up with OBGYN. This is not a desired for patient, [facility] Results discussed with patient including worrisome signs and symptoms and strict return precautions, and when to return to the emergency department. They verbalized understanding and feel safe for discharge at this time. Medications Administered Discontinued Medications Generic Name Dose Route Start Last Admin Trade Name Freq PRN Reason Stop Dose Admin Sodium Chloride 1,000 mls @ 999 mls/hr 02/15/23 10:00 02/15/23 12:22 Ns IV 02/15/23 11:00 Infused .Q1H1M MOO Infusion Medical Decision Making Medical Decision Making MDM Narrative: 22-year-old female presenting to the ED complaining of fatigue, nausea, intermittent lower abdominal/pelvic discomfort, intermittent lightheadedness, and + home test yesterday. On exam vital signs stable, NAD, nontoxic appearing, abdomen soft/nontender, no CVAT. No focal deficits. Concern for early vs ectopic vs metabolic abnormality/dehydration. Lower suspicion for ovarian torsion, appendicitis/diverticulitis, ACS or PE Plan: EKG, labs, UA, pelvic ultrasound Please refer to course for remaining clinical decision making, interpretation of labs/imaging results, and discussions with consultants and/or family members. Differential Diagnosis Differential Diagnoses: The differential diagnosis associated with the presentation includes As above Admission/Observation Consideration of admission/observation: Escalation of care including admission/observation considered Lab Data [facility] Lab Attestation statement: I reviewed the patient's lab results. 02/15/23 10:15 02/15/23 10:15 Labs: Lab Results 02/15/23 02/15/23 02/15/23 Range/Units 09:33 09:33 10:15 WBC 6.5 (4.8-10.8) X10*3/uL RBC 4.21 (4.20-5.50) X10*6/uL Hgb 11.4 L (12.0-16.0) g/dl Hct 35.4 L (37.0-47.0) % MCV 84.1 (80.0-98.0) fL MCH 27.1 (27.0-33.0) pg MCHC 32.2 (31.0-35.0) g/dl RDW 14.4 (11.0-16.0) % Plt Count 255 (160-400) X10*3/uL MPV 10.5 (9.4-12.3) fL Immature Gran % (Auto) 0.2 (0.0-0.4) % Neut % (Auto) 64.8 (45-73) % Lymph % (Auto) 24.3 (20-40) % [place] % (Auto) 8.8 (2-11) % Eos % (Auto) 1.4 (0-4) % Baso % (Auto) 0.5 (0-2) % Lymph # (Auto) 1.6 (1.2-4.9) X10*3/uL [place] # (Auto) 0.6 (0.1-1.2) X10*3/uL Eos # (Auto) 0.1 (0.0-0.4) X10*3/uL Baso # (Auto) 0.0 (0.0-0.2) X10*3/uL Abs Immat Gran (auto) 0.01 (0.00-0.03) X10*3/uL Absolute Neuts (auto) 4.2 (2.0-8.3) x10*3/uL Absolute Nucleated RBC 0.000 (0.0-0.012) X10*3/uL Nucleated RBC % (auto) 0.0 (0.0-0.2) /100WBC Sodium (135-145) mmol/L Potassium (3.3-5.1) mmol/L Chloride (96-108) mmol/L Carbon Dioxide (22-29) mmol/L Anion Gap (12-20) BUN (9-16) mg/dL Creatinine (0.5-1.4) mg/dL Estim Creat Clear Calc Estimated GFR Random Glucose (60-115) mg/dL Calcium (8.4-10.2) mg/dL Magnesium (1.6-2.6) mg/dL Total Bilirubin (0.0-1.0) mg/dL Direct Bilirubin (0.0-0.5) mg/dL AST (5-31) U/L ALT (0-31) U/L Alkaline Phosphatase (39-117) U/L Total Protein (6.5-8.0) g/dL Albumin (3.5-5.0) g/dL Lipase (8-78) U/L Beta HCG, Quant mIU/mL Urine Color Yellow Urine Appearance Clear Urine pH 5.5 (5.0-9.0) Ur Specific [place] 1.025 (1.005-1.025) Urine Protein Trace (Neg-Trace) mg/dL Urine Glucose (UA) Negative (Negative) mg/dL Urine Ketones 40 (Negative) mg/dL Urine Blood Negative (Negative) Urine Nitrite Negative (Negative) Ur Leukocyte Esterase Negative (Negative) Urine Test POSITIVE H (NEGATIVE) 02/15/23 Range/Units 10:15 WBC (4.8-10.8) X10*3/uL RBC (4.20-5.50) X10*6/uL Hgb (12.0-16.0) g/dl Hct (37.0-47.0) % MCV (80.0-98.0) fL MCH (27.0-33.0) pg MCHC (31.0-35.0) g/dl RDW (11.0-16.0) % Plt Count (160-400) X10*3/uL MPV (9.4-12.3) fL Immature Gran % (Auto) (0.0-0.4) % Neut % (Auto) (45-73) % Lymph % (Auto) (20-40) % [place] % (Auto) (2-11) % Eos % (Auto) (0-4) % Baso % (Auto) (0-2) % Lymph # (Auto) (1.2-4.9) X10*3/uL [place] # (Auto) (0.1-1.2) X10*3/uL Eos # (Auto) (0.0-0.4) X10*3/uL Baso # (Auto) (0.0-0.2) X10*3/uL Abs Immat Gran (auto) (0.00-0.03) X10*3/uL Absolute Neuts (auto) (2.0-8.3) x10*3/uL Absolute Nucleated RBC (0.0-0.012) X10*3/uL Nucleated RBC % (auto) (0.0-0.2) /100WBC Sodium 138 (135-145) mmol/L Potassium 3.9 (3.3-5.1) mmol/L Chloride 112 H (96-108) mmol/L Carbon Dioxide 23 (22-29) mmol/L Anion Gap 7 L (12-20) BUN 8 L (9-16) mg/dL Creatinine 0.72 (0.5-1.4) mg/dL Estim Creat Clear Calc 114.8 Estimated GFR > 60 Random Glucose 88 (60-115) mg/dL Calcium 8.7 (8.4-10.2) mg/dL Magnesium 1.9 (1.6-2.6) mg/dL Total Bilirubin 0.9 (0.0-1.0) mg/dL Direct Bilirubin 0.3 (0.0-0.5) mg/dL AST 22 (5-31) U/L ALT 12 (0-31) U/L Alkaline Phosphatase 58 (39-117) U/L Total Protein 7.0 (6.5-8.0) g/dL Albumin 4.0 (3.5-5.0) g/dL Lipase 17 (8-78) U/L Beta HCG, Quant 3925 mIU/mL Urine Color Urine Appearance Urine pH (5.0-9.0) Ur Specific [place] (1.005-1.025) Urine Protein (Neg-Trace) mg/dL Urine Glucose (UA) (Negative) mg/dL Urine Ketones (Negative) mg/dL Urine Blood (Negative) Urine Nitrite (Negative) Ur Leukocyte Esterase (Negative) Urine Test (NEGATIVE) Radiology Impression Discussion of test interpretation with radiology: I have reviewed the radiologist's reading. External Record Review External record reviewed: Inpatient record, Office record, Outpatient record, Prior outpatient labs, Prior outpatient radiology, Primary care record and Outside ED record Discharge Plan Discharge Clinical Impression: Early stage of Patient Disposition: Home, Self-Care Instructions: (ED) Prescriptions: No Action fluconazole [Diflucan] 150 mg tablet 150 mg PO DAILY Qty: 1 0RF Rx Instructions: administer on day 1 of therapy Referrals: [facility] - [facility]Outside]
[2023-02-15 10:19] LABS: MANUAL DIFF FLAG NO
[2023-02-15 10:24] LABS: Basophils Percent Auto 0.5 % (0-2); Eosinophils Absolute Auto 0.1 X10*3/uL (0.0-0.4); Eosinophils Percent Auto 1.4 % (0-4); Hematocrit 35.4 % (37.0-47.0); Hemoglobin 11.4 g/dl (12.0-16.0); Imm Gran Abs Auto 0.01 X10*3/uL (0.00-0.03); Imm Gran Pct Auto 0.2 % (0.0-0.4); Lymphocytes Absolute Auto 1.6 X10*3/uL (1.2-4.9); Lymphocytes Percent Auto 24.3 % (20-40); Mean Corpuscular HGB Conc 32.2 g/dl (31.0-35.0); Mean Corpuscular Hemoglobin 27.1 pg (27.0-33.0); Mean Corpuscular Volume 84.1 fL (80.0-98.0); Mean Platelet Volume 10.5 fL (9.4-12.3); Monocytes Absolute Auto 0.6 X10*3/uL (0.1-1.2); Monocytes Percent Auto 8.8 % (2-11); Neutrophils Absolute Auto 4.2 x10*3/uL (2.0-8.3); Neutrophils Percent Auto 64.8 % (45-73); Platelet Count 255 X10*3/uL (160-400); Red Blood Count 4.21 X10*6/uL (4.20-5.50); Red Cell Distribution Width 14.4 % (11.0-16.0); White Blood Count 6.5 X10*3/uL (4.8-10.8)
[2023-02-15 10:43] LABS: Alanine Aminotransferase 12 U/L (0-31); Alkaline Phosphatase 58 U/L (39-117); Anion Gap 7 (12-20); Aspartate Amino Transferase 22 U/L (5-31); Bilirubin Direct 0.3 mg/dL (0.0-0.5); Bilirubin Total 0.9 mg/dL (0.0-1.0); Blood Urea Nitrogen 8 mg/dL (9-16); Calcium 8.7 mg/dL (8.4-10.2); Carbon Dioxide 23 mmol/L (22-29); Chloride 112 mmol/L (96-108); Creatinine Clr Calc Pharmacy 114.8; Estimated Glomerular Filt Rate > 60; Glucose Random 88 mg/dL (60-115); HCG Quantitative 3925 mIU/mL; Lipase 17 U/L (8-78); Magnesium 1.9 mg/dL (1.6-2.6); Potassium 3.9 mmol/L (3.3-5.1); Sodium 138 mmol/L (135-145)
[2023-02-15] MEDS: 0.9 % Sodium Chloride 1,000 ML 999 ML IV (11:05)
--- NOTE | 2023-02-15 11:08 | PC.NURSE ---
20G Iv placed in right AC - 1L Ns running per order, pt awaiting ultrasound
== END 2023-02-15 13:48 | disposition home or self-care (01) ==
PROVIDERS: Physician Assistant; Emergency Provider Emergency Medicine; PCP Family Medicine
DX: R10.2 Pelvic and perineal pain (principal); R42 Dizziness and giddiness; R11.2 Nausea with vomiting, unspecified; Z79.899 Other long term (current) drug therapy
CPT/HCPCS: 36415; 76801; 80048; 80076; 81003; 81025; 83690; 83735; 84702; 85025; 93005; 96360; 99284

== ENCOUNTER 2023-03-02 14:31 | Outpatient (REF) | payer MEDICAID, SELFPAY ==
[2023-03-03 15:50] LABS: CT PCR NOT DETECTED (Not Detect.); NG PCR NOT DETECTED (Not Detect.)
[2023-03-04 11:40] LABS: BV Int Neg Control Negative (Negative); BV Int Pos Control Positive (Positive)
== END 2023-03-02 14:32 | disposition home or self-care (01) ==
LOC: HO.LNP 14:31
PROVIDERS: PCP Family Medicine; Visit Provider Advanced Practice Midwife
DX: Z01.419 Encounter for gynecological examination (general) (routine) without abnormal findings (principal); Z20.2 Contact with and (suspected) exposure to infections with a predominantly sexual mode of transmission; O03.9 Complete or unspecified spontaneous abortion without complication
CPT/HCPCS: 0353U; 87480; 87510; 87660; 88142

== ENCOUNTER 2025-01-18 10:42 | Outpatient (REF) | payer MEDICAID, SELFPAY ==
--- OUTSIDE RECORDS SUMMARY | 2025-01-18 12:18 | XMS_ITS | Clinical Summary ---
Author Organization [facility] ity Address [id number] [place] [id number] Care Team Providers Care Teacher Aide Clerical Name Role Phone Angela Taylor DO Primary Care Provider [phone] Surgical History Surgery Date Site/Laterality Comments OTHER SURGICAL HISTORY PROCEDURE: DENIES PREVIOUS SURGERY Family History Medical History Relation Name Comments Other: iddm Maternal Grandmother d Other: iddm Paternal Grandfather Breast cancer Neg Hx Ovarian cancer Neg Hx Prostate cancer Neg Hx Relation Name Status Comments Maternal Grandmother Paternal Grandfather Social History Tobacco Use Types Packs/Day Years Used Date Smoking Tobacco: Never Smokeless Tobacco: Never Alcohol Use Standard Drinks/Week Comments No 0 (1 standard drink = 0.6 oz pur e alcohol) Comments Unknown Sex and Gender Information Value Date Recorded Sex Assigned at Not on file Legal Sex Female 5:36 PM EST Gender Identity Not on file Sexual Orientation Not on file Obstetrics History Plan of Treatment Health Maintenance Due Date Last Done Comments HPV Vaccines (3 - 3-dose series) 11/27/2016 08/23/2016, 05/27/2016 Cervical Cancer Screening: Pap Smear 2020 COVID-19 Vaccine ( season) 2024 Influenza Vaccine (Season Ended) 2025 DTaP,Tdap,and Td Vaccines (6 - Td or Tdap) 05/27/2026 05/27/2016, 05/23/2003, 1999, Additional history exists Hepatitis B Vaccines Completed 1999, 1999, 1999 IPV Vaccines Completed 05/23/2003, 09/18, 1999, Additional history exists MMR Vaccines Completed 05/23/2003, 04/13/2000 Meningococcal ACWY Vaccine Completed 05/27/2016 Varicella Vaccines Completed 09/29/2016, 04/13/2000 HIB Vaccines Aged Out No longer eligi ble based on patient's age to complete this topic Hepatitis A Vaccines Aged Out No long er eligible based on patient's age to complete this topic Meningococcal B Vacine Aged Out No lo nger eligible based on patient's age to complete this topic Pneumococcal Vaccine: Pediatrics (0 to 5 Years) and At-Risk Patients (6 to 64 Years) Aged Out No longer eligible based on patient's age to complete this topic RSV Immunization Patients Under 20 months Aged Out No longer eligible based on patient's age to complete this topic Care Teams Teacher Aide Clerical Relationship Specialty Start Date End Date Angela Taylor DO [address] [place] [address] PCP - General Internal Medicine 05/11/18
[2025-01-18 13:26] LABS: MANUAL DIFF FLAG NO
[2025-01-18 13:37] LABS: Basophils Percent Auto 0.4 % (0-2); Eosinophils Absolute Auto 0.2 X10*3/uL (0.0-0.4); Hematocrit 38.2 % (37.0-47.0); Hemoglobin 12.3 g/dl (12.0-16.0); Imm Gran Abs Auto 0.01 X10*3/uL (0.00-0.03); Imm Gran Pct Auto 0.1 % (0.0-0.4); Lymphocytes Absolute Auto 1.8 X10*3/uL (1.2-4.9); Lymphocytes Percent Auto 22.8 % (20-40); Mean Corpuscular HGB Conc 32.2 g/dl (31.0-35.0); Mean Corpuscular Hemoglobin 28.8 pg (27.0-33.0); Mean Corpuscular Volume 89.5 fL (80.0-98.0); Mean Platelet Volume 11.8 fL (9.4-12.3); Monocytes Absolute Auto 0.4 X10*3/uL (0.1-1.2); Monocytes Percent Auto 4.8 % (2-11); Neutrophils Absolute Auto 5.6 x10*3/uL (2.0-8.3); Neutrophils Percent Auto 69.9 % (45-73); Platelet Count 257 X10*3/uL (160-400); Red Blood Count 4.27 X10*6/uL (4.20-5.50); Red Cell Distribution Width 13.1 % (11.0-16.0)
[2025-01-18 14:10] LABS: Alanine Aminotransferase 17 U/L (0-31); Albumin Level 4.3 g/dL (3.5-5.0); Alkaline Phosphatase 72 U/L (39-117); Anion Gap 9 (12-20); Aspartate Amino Transferase 29 U/L (5-31); Bilirubin Direct 0.2 mg/dL (0.0-0.5); Bilirubin Total 0.6 mg/dL (0.0-1.0); Blood Urea Nitrogen 12 mg/dL (9-16); Calcium 8.8 mg/dL (8.4-10.2); Carbon Dioxide 24 mmol/L (22-29); Chloride 110 mmol/L (96-108); Cholesterol 153 mg/dL (<200); Estimated Glomerular Filt Rate > 60; Glucose Random 75 mg/dL (60-115); HDL Cholesterol 48 mg/dL (>40); Iron 56 mcg/dL (30-160); LDL Cholesterol Calculated 98 mg/dL (<100); Percent Iron Saturation 16 % (15-50); Potassium 3.4 mmol/L (3.3-5.1); Sodium 140 mmol/L (135-145); Total Iron Binding Capacity 342 mcg/dL (228-428); Total Protein 7.3 g/dL (6.5-8.0); Triglycerides 37 mg/dL (<150); Unsaturated Iron Binding 286 ug/dL
[2025-01-18 14:16] LABS: Ferritin 25 ng/mL (10-122); Free T4 (Free Thyroxine) 0.84 ng/dL (0.71-1.85); Thyroid Stimulating Hormone 1.17 uIU/mL (0.32-4.0); Vitamin D 25-OH Total 13.7 ng/mL (>30)
[2025-01-18 14:20] LABS: Estimated Average Glucose 105 mg/dL; Hemoglobin A1C 114.6353 umol/L; Hemoglobin A1c % 5.3 % (<6.0); Total Hemoglobin (HGBA1C) 3326.7213 umol/L
[2025-01-18 14:26] LABS: Folate 11.7 ng/mL (> or = 4.0); Vitamin B12 409 pg/mL (200-900)
[2025-01-18 15:00] LABS: CT PCR NOT DETECTED (Not Detect.); NG PCR NOT DETECTED (Not Detect.)
[2025-01-19 07:31] LABS: HBc Num1 0.06 S/CO (0.00-0.79); HBsAGNum1 0.26 S/CO (0.00-0.99); HIV AB/AG Nonreactive (Nonreactive); HIV Num 1 0.07 S/CO (0.00-0.99); Hepatitis B Core Antibody Nonreactive (Nonreactive); Hepatitis B Surface Antigen Negative (Negative); ~HepC Num1 0.11 S/CO (0.00-0.79); ~Hepatitis C Antibody Nonreactive (Nonreactive)
[2025-01-19 08:08] LABS: HBS Num2 11.25 mIU/mL (0-7.99); HBS Num3 10.95 mIU/mL (0-7.99); ~Hepatitis B Surface Antibody GRAYZONE (Nonreactive)
[2025-01-21 11:09] LABS: RPR Rapid Plasma Reagin NON-REACTIVE (NON-REACTIVE)
[2025-01-21 12:48] LABS: TS Negative Control Passed; TS Panel A 0; TS Panel B 0; TS Positive Control Passed; TSpotTB Negative (Negative)
[2025-01-22 22:28] LABS: Rubella IgG Antibody 1.13 Index
[2025-01-23 04:38] LABS: Hepatitis A Antibody IgG Nonreactive (Nonreactive); ~Hepatitis A Antibody IgG 0.18 S/CO (0.00-0.99)
== END 2025-01-18 10:43 | disposition home or self-care (01) ==
LOC: HO.HHCL 10:42
PROVIDERS: Visit Provider Family Medicine
DX: Z00.00 Encounter for general adult medical examination without abnormal findings (principal); D64.9 Anemia, unspecified; F41.9 Anxiety disorder, unspecified; H10.31 Unspecified acute conjunctivitis, right eye; Z68.21 Body mass index [BMI] 21.0-21.9, adult
CPT/HCPCS: 80048; 80061; 80076; 82306; 82607; 82728; 82746; 83036; 83540; 84439; 84443; 85025; 86481; 86592; 86704; 86706; 86708; 86735; 86762; 86765; 86787; 86803; 87340; 87389; 87491; 87591

== ENCOUNTER 2025-01-30 14:06 | Outpatient (REF) | payer MEDICAID, SELFPAY ==
[2025-01-30 15:58] LABS: Bacterial Vaginosis PCR POSITIVE (Negative); Candida Group PCR DETECTED (Not Detect); Candida glab krusei PCR NOT DETECTED (Not Detect); Trichomonas vaginalis PCR NOT DETECTED (Not Detect)
--- OUTSIDE RECORDS SUMMARY | 2025-01-30 16:52 | XMS_ITS | Encounter Summary ---
Author Organization [employer] Address [address] [facility] [address] [place] [address] Care Team Providers Care Double Needle Operator Name Role Phone Angela Taylor DO Primary Care Provider [phone] Encounter Details Date Type Department Care Team (Late st Contact Info) Description 01/30/2025 Orders Only [facility] MEDICINE [address] [place] [address] Nicki Sanchez MD [address] [place] [address] Yeast infection (Primary Dx); Bacterial vaginosis Social History Tobacco Use Types Packs/Day Years Used Date Smoking Tobacco: Never Passive Smoke Exposure: Never Smokeless Tobacco: Never Alcohol Use Standard Drinks/Week Comments Never 0 (1 standard drink = 0.6 oz pur e alcohol) Depression Answer Date Recorded Patient Health Questionnaire-9 Score 7 01/18/2025 Patient Health Questionnaire-9 Score 7 01/18/2025 Last PHQ-9: Questionnaire Data Not on file 0 01/18/2025 Housing Stability Answer Date Recorded What is your housing situation today? I have angelica freire 01/18/[address] you li ve. Do you have problems with any of the following? None of the above 01/18/2025 Food Insecurity Answer Date Recorded Within the past 12 months, y ou worried that your food would run out before you got money to buy more: Never True 01/10/2025 Within the past 12 months,th e food you bought just didn't last and you didn't have enough money to get more: Never True Transportation Answer Date Recorded In the past 12 months, has l ack of transportation kept you from medical appts, meetings, work or from getting things needed for daily living? No 01/10/2025 Utilities Answer Date Recorded In the past 12 months, has t he electric, gas, oil or water company threatened to shut off services in your home? No 01/10/2025 Depression Answer Date Recorded Patient Health Questionnaire-2 Score 1 01/18/2025 Internet Access Answer Date Recorded Internet Access Q1 Yes 01/10/2025 Internet Access Q2 Not on file 01/10/2025 Comments No Sex and Gender Information Value Date Recorded Sex Assigned at Female 08/16/2022 10:30 AM EDT Legal Sex Female 10:30 AM EDT Gender Identity Female 08/16/2022 10:30 AM EDT Sexual Orientation Straight 08/16/2022 10 :30 AM EDT documented as of this encounter Plan of Treatment Not on file documented as of this encounter Visit Diagnoses Diagnosis Yeast infection- Primary Bacterial vaginosis Unspecified vaginitis and vulvovaginitis documented in this encounter Additional Health Concerns Assessment Noted Time PHQ-9 Depression Total Score: 7 01/19/20 10:46 AM EDT documented as of this encounter Care Teams Double Needle Operator Relationship Specialty Start Date End Date Angela Taylor DO [address] [place] [id number] PCP - General Family Medicine 01/18/25 documented as of this encounter
--- OUTSIDE RECORDS SUMMARY | 2025-01-30 16:52 | XMS_ITS | Clinical Summary ---
Author Organization [employer] Address [address] [place] [address] [address] [place] [address] Care Team Providers [employer] Name Role Phone Angela Taylor DO Primary Care Provider [phone] Allergies Active Allergy Reactions Criticality Noted Date Comments Fish-Derived Products Anaphylaxis High 12/23/2022 Shrimp Extract Anaphylaxis High 12/23/2022 Medications * This document contains information received from the source organization and may not represent a complete record from that organization. ferrous sulfate 324 (65 Fe) MG EC tablet Take 324 mg by mouth 2 times daily. 05/10/20 22 Active fluconazole (Diflucan) 150 MG tablet TAKE 1 TABLET BY MOUTH DAILY FOR 1 DOSE. ADMINISTER ON DAY 1 OF THERAPY 09/16/20 22 Active fluticasone (Flonase Allergy Relief) 50 MCG/ACT nasal spray Administer 1-2 sprays into affected nostril(s) at bed time. 02/24/20 19 Active loratadine (Claritin) 10 MG tablet Take 1 tablet by mouth at bed time. 02/24/20 19 Active cyclobenzaprine (Flexeril) 5 MG tabletIndication s:Muscle spasms of neck Take 1-2 tablets by oral route every evening for 7 days 30 tablet 01/25/20 23 Active naproxen (Naprosyn) 500 MG tabletIndication s:Muscle spasms of neck TAKE 1 TABLET BY MOUTH TWICE A DAY 60 tablet 02/22/20 23 Active etonogestrel-elu ting (Nexplanon) 68 mg contraceptive implant Inject 68 mg under the skin. 03/02/20 23 Active ergocalciferol (Vitamin D2) 1.25 MG (79089 UT) capsule Take 1 capsule (1.25 mg) by mouth 1 (one) time per week for 12 doses. 12 capsule 01/25/20 25 2024 Active clotrimazole-bet amethasone (Lotrisone) creamIndications :Rash Apply topically 2 times daily for 28 days. 45 g 01/31/20 25 2024 Active metroNIDAZOLE (Flagyl) 500 MG tabletIndication s:Bacterial vaginosis Take 1 tablet (500 mg) by mouth 2 times daily for 7 days. 14 tablet 01/31/20 25 2024 Active clotrimazole (Gyne-Lotrimin) 1 % vaginal creamIndications :Yeast infection Insert 1 applicator into the vagina in the evening for 7 days. 45 g 01/31/20 25 2024 Active ascorbid acid ER (Vitamin C) 500 MG ER tablet Take one tablet with your iron supplement and a full glass of water 07/24/202024 Discontinued(M ed list cleanup (will not trigger notification to Pharmacy)) Kariva 0.15-0.02/0.01 MG (06/03) tablet TAKE 1 TABLET BY MOUTH DAILY START WITHIN THE 1ST FEW DAYS OF YOUR REGULAR PERIOD, 04/12/202024 Discontinued(M ed list cleanup (will not trigger notification to Pharmacy)) ergocalciferol (Vitamin D-2) 1.25 MG (10435 UT) capsule take 1 capsule by oral route every week 07/24/20 20 2024 Discontinued(I neffective) ulipristal (Peggy) 30 mg tablet Take up to 5 days after sex as needed 1 tablet 01/13/202024 Discontinued(M ed list cleanup (will not trigger notification to Pharmacy)) trimethoprim-blair ymyxin b (Polytrim) ophthalmic solution Administer 1 drop into the right eye every 4 (four) hours for 7 days. 10 mL 01/19/20 25 2024 Active Problems Patient Care Coordination No te Formatting of this note migh t be different from the original. C3/CM Vangie Azar RN Problem Noted Date Diagnosed Date Metrorrhagia 01/30/2025 Assessment & Plan (01/30/2025 4:47 PM EDT): I will order TSH and BV panel, patient will be contacted with results I will refer patient for f/u Rash 01/30/2025 Anemia 01/18/2025 BMI 21.0-21.9, adult 01/18/2025 Anxiety 01/18/2025 Resolved Problems Problem Noted Date Diagnosed Date Resolved Date Acute hemorrhagic cystitis 06/03/2017 0 01/18/2025 Encounters * This document contains information received from the source organization and may not represent a complete record from that organization. Date Type Department Care Team Description 01/30/2025 10:45 AM EDT Office Visit [address] [address] Nicki Sanchez MD Vaginal itching; Urinary frequency; Metrorrhagia; Rash 01/30/2025 Orders Only [address] [address] Nicki Sanchez MD Yeast infection (Primary Dx); Bacterial vaginosis 01/30/2025 Travel 01/30/[address] [address] Angela Taylor DO Nurse Triage 01/22/[address] [address] Angela Taylor DO Medication Question 01/21/[address] [address] Angela Taylor DO 01/18/2025 9:30 AM EDT Office Visit [address] [address] Angela Taylor DO Routine history and physical examination of adult (Primary Dx); Anemia, unspecified type; Anxiety; Acute bacterial conjunctivitis of right eye; BMI 21.0-21.9, adult 01/18/2025 Travel 01/10/2025 Patient Outreach [address] [address] Angela Taylor DO Pre-visit Planning 01/09/2025 Population Health Risk Score Community [facility] ([facility]) Department [address] [place] [phone] Provider, Population Health Generic from Last 3 Months Immunizations Name Administration Dates Next Due DTaP 05/23/2003,1999,1999 ,1999 HPV 9-Valent 08/23/2016,05/27/2016 Hep B, Adolescent or Pediatric 1999,1998,1999 IPV 05/23/2003,1999,1999 ,1999 MMR 05/23/2003,04/13/2000 Meningococcal MCV4P [id number] 05/27/2016 Tdap 05/27/2016 Varicella 09/29/2016,04/13/2000 Family History Medical History Relation Name Comments No Known Problems Father Diabetes Maternal Grandfather Diabetes Maternal Grandmother Anxiety disorder Mother Pre-diabetes Mother Sleep apnea Mother Diabetes Paternal Grandfather Diabetes Paternal Grandmother Relation Name Status Comments Father Alive Maternal Grandfather Maternal Grandmother Mother Alive Paternal Grandfather Paternal Grandmother Social History Tobacco Use Types Packs/Day Years Used Date Smoking Tobacco: Never Passive Smoke Exposure: Never Smokeless Tobacco: Never Tobacco Cessation:Counseling Given: Not Answered Alcohol Use Standard Drinks/Week Comments Never 0 [...] Orientation Straight 08/16/2022 10 :30 AM EDT Last Filed Vital Signs Vital Sign Reading Time Taken Comments Blood Pressure 100/70 01/30/2025 10:51 AM EDT ma nually Pulse 58 01/30/2025 10:51 AM EDT Temperature 36.2 ??C (97.2 ??F) 01/30/2025 10:51 AM E DT Respiratory Rate 16 01/30/2025 10:51 AM EDT Oxygen Saturation 98% 01/18/2025 9:28 AM EDT Inhaled Oxygen Concentration - - Weight 60.9 kg (134 lb 4 oz) 01/30/2025 10:51 AM EDT Height 167.6 cm (5' 6 ) 01/30/2025 10:51 AM EDT Body Mass Index 21.67 01/30/2025 10:51 AM EDT Plan of Treatment Health Maintenance Due Date Last Done Comments Family Planning (PISQ) 2014 HPV Vaccines (3 - 3-dose series) 11/27/2016 08/23/2016, 05/27/2016 COVID-19 Vaccine ( season) 2024 Influenza Vaccine (#1) 2024 Alcohol/Substance Use Screening 01/18/2026 01/18/2025 Depression Screening 01/18/2026 01/18/2025, 01/19/20 SDOH Screening 01/18/2026 01/18/2025 Tobacco Screening 01/30/2026 01/30/2025 Pap Smear 03/02/2026 03/02/2023 DTaP/Tdap/Td Vaccines (6 - Td or Tdap) 05/27/2026 05/27/2016, 05/23/2003, 1999, Additional history exists Zoster Vaccines (1 of 2) 2049 RSV Patients and Patients Aged 60 years or older (1 - 1-dose 75+ series) 2074 Hepatitis B Vaccines Completed 1999, 1999, 1999 IPV Vaccines Completed 05/23/2003, 09/18, 1999, Additional history exists Meningococcal Vaccine Completed 05/27/2016 HIV Screening Completed 01/18/2025, 07/18, 04/12/2022, Additional history exists Hepatitis C Screening Completed 01/18/2025 , 08/06/2022, 04/12/2022, Additional history exists HIB Vaccines Aged Out No longer eligi ble based on patient's age to complete this topic Hepatitis A Vaccines Aged Out No long er eligible based on patient's age to complete this topic Pneumococcal Vaccine: Pediatrics (0 to 5 Years) and At-Risk Patients (6 to 49) Years) Aged Out No longer eligible based on patient's age to complete this topic RSV under 20 months Aged Out No longe r eligible based on patient's age to complete this topic Rotavirus Vaccines Aged Out No longer eligible based on patient's age to complete this topic Procedures Procedure Name Priority Date/Time Associated Diagnosis Comments POCT , URINE Routine 01/30/2025 11:22 AM EDT Metrorrhagia POCT URINALYSIS DIPSTICK Routine 01/30/2025 11:06 AM EDT Urinary frequency BACTERIAL VAGINOSIS PANEL Routine 01/30/2025 10:54 AM EDT Vaginal itching T-SPOT(R).TB Routine 01/18/2025 10:46 AM EDT Routine history and physical examination of adult Anemia, unspecified type Anxiety Acute bacterial conjunctivitis of right eye BMI 21.0-21.9, adult CBC WITH AUTO DIFFERENTIAL Routine 01/18/2025 10:46 AM EDT Routine history and physical examination of adult Anemia, unspecified type Anxiety Acute bacterial conjunctivitis of right eye BMI 21.0-21.9, adult HEPATITIS B CORE AB TOTAL Routine 01/18/2025 10:46 AM EDT Routine history and physical examination of adult Anemia, unspecified type Anxiety Acute bacterial conjunctivitis of right eye BMI 21.0-21.9, adult HEPATITIS A ANTIBODY, TOTAL Routine 01/18/2025 10:46 AM EDT Routine history and physical examination of adult Anemia, unspecified type Anxiety Acute bacterial conjunctivitis of right eye BMI 21.0-21.9, adult HEPATITIS B SURFACE ANTIBODY, QUALITATIVE Routine 01/18/2025 10:46 AM EDT Routine history and physical examination of adult Anemia, unspecified type Anxiety Acute bacterial conjunctivitis of right eye BMI 21.0-21.9, adult RPR (MONITOR) W/REFL TITER Routine 01/18/2025 10:46 AM EDT Routine history and physical examination of adult Anemia, unspecified type Anxiety Acute bacterial conjunctivitis of right eye BMI 21.0-21.9, adult HEPATITIS C AB W/REFL TO HCV RNA, QN, PCR Routine 01/18/2025 10:46 AM EDT Routine history and physical examination of adult Anemia, unspecified type Anxiety Acute bacterial conjunctivitis of right eye BMI 21.0-21.9, adult HIV 1/2 ANTIGEN/ANTIBODY, FOURTH GENERATION W/RFL Routine 01/18/2025 10:46 AM EDT Routine history and physical examination of adult Anemia, unspecified type Anxiety Acute bacterial conjunctivitis of right eye BMI 21.0-21.9, adult HEPATITIS B SURFACE ANTIGEN, EIA Routine 01/18/2025 10:46 AM EDT Routine history and physical examination of adult Anemia, unspecified type Anxiety Acute bacterial conjunctivitis of right eye BMI 21.0-21.9, adult IRON AND TOTAL IRON BINDING CAPACITY Routine 01/18/2025 10:46 AM EDT Routine history and physical examination of adult Anemia, unspecified type Anxiety Acute bacterial conjunctivitis of right eye BMI 21.0-21.9, adult FERRITIN Routine 01/18/2025 10:46 AM EDT Routine history and physical examination of adult Anemia, unspecified type Anxiety Acute bacterial conjunctivitis of right eye BMI 21.0-21.9, adult VITAMIN B12/FOLATE, SERUM PANEL Routine 01/18/2025 10:46 AM EDT Routine history and physical examination of adult Anemia, unspecified type Anxiety Acute bacterial conjunctivitis of right eye BMI 21.0-21.9, adult MEASLES, MUMPS, AND RUBELLA (MMR) AB (IGG) PANEL, IMMUNE STATUS Routine 01/18/2025 10:46 AM EDT Routine history and physical examination of adult Anemia, unspecified type Anxiety Acute bacterial conjunctivitis of right eye BMI 21.0-21.9, adult VARICELLA ZOSTER ANTIBODY, IGG Routine 01/18/2025 10:46 AM EDT Routine history and physical examination of adult Anemia, unspecified type Anxiety Acute bacterial conjunctivitis of right eye BMI 21.0-21.9, adult BASIC METABOLIC PANEL Routine 01/18/2025 10:46 AM EDT Routine history and physical examination of adult Anemia, unspecified type Anxiety Acute bacterial conjunctivitis of right eye BMI 21.0-21.9, adult HEMOGLOBIN A1C Routine 01/18/2025 10:46 AM EDT Routine history and physical examination of adult Anemia, unspecified type Anxiety Acute bacterial conjunctivitis of right eye BMI 21.0-21.9, adult HEPATIC FUNCTION PANEL Routine 01/18/2025 10:46 AM EDT Routine history and physical examination of adult Anemia, unspecified type Anxiety Acute bacterial conjunctivitis of right eye BMI 21.0-21.9, adult VITAMIN D,25-OH,TOTAL,IA Routine 01/18/2025 10:46 AM EDT Routine history and physical examination of adult Anemia, unspecified type Anxiety Acute bacterial conjunctivitis of right eye BMI 21.0-21.9, adult TSH Routine 01/18/2025 10:46 AM EDT Routine history and physical examination of adult Anemia, unspecified type Anxiety Acute bacterial conjunctivitis of right eye BMI 21.0-21.9, adult LIPID PANEL, STANDARD Routine 01/18/2025 10:46 AM EDT Routine history and physical examination of adult Anemia, unspecified type Anxiety Acute bacterial conjunctivitis of right eye BMI 21.0-21.9, adult T4, FREE Routine 01/18/2025 10:46 AM EDT Routine history and physical examination of adult Anemia, unspecified type Anxiety Acute bacterial conjunctivitis of right eye BMI 21.0-21.9, adult CHLAMYDIA/N. GONORRHOEAE RNA, TMA, UROGENITAL Routine 01/18/2025 10:46 AM EDT Routine history and physical examination of adult Anemia, unspecified type Anxiety Acute bacterial conjunctivitis of right eye BMI 21.0-21.9, adult PAP SMEAR Routine 03/02/2023 3:26 PM EDT from Last 3 Months or Most Recently Relevant to Health Maintenance Results * POCT Urine (01/30/2025 11:22 AM EDT) Preg Test, Ur Negative Negative, Indeterminate, None Detected, Invalid, Specimen unsatisfactory for evaluation, Weakly Positive QC Media Lot # [id number] Lot# Expiration Date [id number] Urine 01/30/2025 11:2 2 AM EDT Nicki Barker MD POINT OF CARE TEST EN TER/EDIT ORDERABLES Final Result * (ABNORMAL) POCT Urinalysis (01/30/2025 11:06 AM EDT) Color, UA Yellow Clarity, UA Clear Glucose, UA Negative Bilirubin, UA Negative Ketones, UA Negative Spec Grav, UA 1.020 Blood, UA Positive(A) Negative, None Detected pH, UA 7.0 Protein, UA Negative Urobilinogen, UA 0.2 Leukocytes, UA Negative Negative, Rare, Trace Nitrite, UA Negative Negative, None Detected Appearance, UA clear QC Media Lot # [id number] Lot# Expiration Date Urine 01/30/2025 11:0 6 AM EDT Nicki Barker MD POINT OF CARE TEST EN TER/EDIT ORDERABLES Final Result * (ABNORMAL) Bacterial Vaginosis (01/30/2025 10:54 AM EDT) TRICHOMONAS VAGINALIS DETECTION BY PCR NOT DETECTED Not Detect [facility] BACTERIAL VAGINOSIS DETECTION BY PCR POSITIVE(A) Negative [facility] Comment:The BV organism targ ets of the Xpert Xpress MVP test can becommensal in women; Xpert Xpress MVP positive results forbacterial vaginosis should be considered in conjunction withother clinical and patient information to determine thedisease status. Organisms that are not detected by the XpertXpress MVP test have also been reported to be associatedwith BV and aerobic vaginitis.The Xpert Xpress MVP test performance has not been evaluatedin patients under the age of 14. NEVAEH GROUP DETECTION BY PCR DETECTED(A) Not Detect [facility] Nevaeh glab krusei PCR NOT DETECTED Not Detect [facility] Swab Vaginal structure / Unknown 01/30/2025 10:54 AM EDT 01/30/2025 2:07 PM EDT Nicki Barker MD LAB MICROBIOLOGY - GE NERAL ORDERABLES Final Result [facility] [address] [place] [phone] * (ABNORMAL) Vitamin D, 25-Hydroxy, Total, Immunoassay (01/18/2025 10:46 AM EDT) Vitamin D 25-OH Total 13.7(L) >30 ng/mL [facility] Comment: Health Based Reference Values*< 20 ??ng/mL ??Vnfgzphxg16-20 ng/mL ??Insufficient> 30 ??ng/mL ??Sufficient*Georgina FERRER. N Engl J Med. 2007;357:266-280There is no well-established upper level of normal vitamin Dlevels. Some laboratories use 50 ng/mL as an upper limit ofnormal. However, toxicity is patient-dependent and may occurat any level. Careful correlation with the patient'spresentation is necessary and, if there is concern forvitamin D toxicity, treatment should be consideredirrespective of the serum level.Care must be taken in interpreting Vitamin D results fromdifferent laboratories and methodologies. ??Published datademonstrated that results from patients undergoinghemodialysis may show a negative bias when tested withvarious automated 25-OH vitamin D assays when compared toLC- MS/MS.When testing samples from patients whose predominant form ofVitamin D is Vitamin D2, such as patients receiving VitaminD2 supplementation, results that are subtherapeutic shouldbe confirmed with another method such as LC-MS/MS. Blood Venous blood specimen / Unknown 01/18/2025 10:46 AM EDT 01/18/2025 1:21 PM EDT us Angela Taylor DO LAB BLOOD ORDERABLES Final R esult [facility] [address] [place] [phone] * Vitamin B12 (Cobalamin) and Folate Panel, Serum (01/18/2025 10:46 AM EDT) Vitamin B12 409 200 - 900 pg/mL [facility] Comment:NORMAL 200-900 PG/ML INDETERMINATE 160-199 PG/ML DEFICIENT < 160 PG/ML Folate 11.7 > or = 4.0 ng/mL [facility] Comment:Reference Values:> o r = 4.0 ng/mL< 4.0 ng/mL suggests folate deficiency Methotrexate, aminopterin and folinic acid(leucovorin) are chemotherapeutic agents whose molecularstructures are similar to folate; therefore, the Architectfolate assay cannot be used for patients using these drugs. Blood 01/18/2025 10:4 6 AM EDT 01/18/2025 1:21 PM EDT Angela Claudia MARSH LAB BLOOD ORDERABLES Final R esult [facility] [address] [place] [phone] * T-SPOT??.TB (01/18/2025 10:46 AM EDT) Pathologist [facility] T Spot TB Negative Negative [facility] Comment:A negative test resu lt does not exclude the possibilityof exposure to or infection with Mycobacteriumtuberculosis (M. tuberculosis). Patients with recentexposure to TB infected individuals exhibiting anegative T-SPOT.TB result should be considered forretesting within 6 weeks or if other relevant clinicalsymptoms indicate. Results from T-SPOT.TB testing mustbe used in conjunction with each individual'sepidemiological history, current medical status,and results of other diagnostic evaluations.The T-SPOT.TB test is qualitative and results arereported as positive, borderline, or negative, giventhat the test controls perform as expected. In linewith the Centers for Disease Control and Prevention's2010 recommendation to report quantitative measurementsalongside the qualitative result, the laboratoryprovides spot counts for informational purposes only.The T-SPOT.TB test should not be interpreted as aquantitative test. TS PANEL A 0 [facility] TS PANEL B 0 [facility] Negative Control Passed [facility] Positive Control Passed [facility] Comment:For additional infor mation, please refer tohttp://education.[employer]F.[employer]/faq/HVX473(This link is being provided for informational/educational purposes only.)THIS TEST WAS PERFORMED AT:[id number] [place] [phone] PATHAK MD,PHD 01/18/2025 10:4 6 AM EDT 01/18/2025 1:21 PM EDT us Angela Claudia MARSH LAB BLOOD ORDERABLES Final R esult [facility] [address] [place] [phone] * Measles, Mumps, and Rubella (MMR) Antibodies??(IgG) Panel, Immune Status (01/18/2025 10:46 AM EDT) Mumps Virus IgG Antibody 31.30 AU/mL [facility] Comment:AU/mL Interpretation ------- <9.00 Not consistent with immunity9.00-10.99 Equivocal>10.99 Consistent with immunityThe presence of mumps IgG antibody suggests immunizationor past or current infection with mumps virus. Rubella IgG Antibody 1.13 Index [facility] Comment:Index Interpretation ----- <0.90 Not consistent with immunity 0.90-0.99 Equivocal > or = 1.00 Consistent with immunityThe presence of rubella IgG antibody suggestsimmunization or past or current infection withrubella virus.THIS TEST WAS PERFORMED AT:[employer] [place] [phone] BUSTOS MD Rubeola IgG (Measles) 20.20 AU/mL [facility] Comment:AU/mL Interpretation ----- <13.50 Not consistent with tqnmsgxe34.50-16.49 Equivocal>16.49 Consistent with immunityThe presence of measles IgG suggests immunization orpast or current infection with measles virus.For additional information, please refer tohttp://education.[employer]/faq/WXM817(This link is being provided for informational/educational purposes only.) Blood Venous blood specimen / Unknown 01/18/2025 10:46 AM EDT 01/18/2025 1:21 PM EDT us Angela Claudia MARSH LAB BLOOD ORDERABLES Final R esult [facility] [address] [place] [phone] * CBC auto differential (01/18/2025 10:46 AM EDT) White Blood Count 8.0 4.8 - 10.8 X10*3/uL [facility] Red Blood Count 4.27 4.20 - 5.50 X10*6/uL [facility] Hemoglobin 12.3 12.0 - 16.0 g/dl [facility] Hematocrit 38.2 37.0 - 47.0 % [facility] Mean Corpuscular Volume 89.5 80.0 - 98.0 fL [facility] Mean Corpuscular Hemoglobin 28.8 27.0 - 33.0 pg [facility] Mean Corpuscular HGB Conc 32.2 31.0 - 35.0 g/dl [facility] Red Cell Distribution Width 13.1 11.0 - 16.0 % [facility] Platelet Count 257 160 - 400 X10*3/uL [facility] Mean Platelet Volume 11.8 9.4 - 12.3 fL [facility] Neutrophils Percent Auto 69.9 45 - 73 % [facility] Imm Gran Pct Auto 0.1 0.0 - 0.4 % [facility] Lymphocytes Percent Auto 22.8 20 - 40 % [facility] Monocytes Percent Auto 4.8 2 - 11 % [facility] Eosinophils Percent Auto 2.0 0 - 4 % [facility] Basophils Percent Auto 0.4 0 - 2 % [facility] NRBC Pct Auto 0.0 0.0 - 0.2 /100WBC [facility] Neutrophils Absolute Auto 5.6 2.0 - 8.3 x10*3/uL [facility] Imm Gran Abs Auto 0.01 0.00 - 0.03 X10*3/uL [facility] Lymphocytes Absolute Auto 1.8 1.2 - 4.9 X10*3/uL [facility] Monocytes Absolute Auto 0.4 0.1 - 1.2 X10*3/uL [facility] Eosinophils Absolute Auto 0.2 0.0 - 0.4 X10*3/uL [facility] Basophils Absolute Auto 0.0 0.0 - 0.2 X10*3/uL [facility] NRBC Abs Auto 0.000 0.0 - 0.012 X10*3/uL [facility] Blood Venous blood specimen / Unknown 01/18/2025 10:46 AM EDT 01/18/2025 1:21 PM EDT Angela Taylor LAB BLOOD ORDERABLES Final R esult Performing Organization Address [facility]/ZIP Co de Phone Number [facility] [address] [place] [phone] [phone] * Hepatitis C Antibody with Reflex to HCV, RNA, Quantitative, Real-Time PCR (01/18/2025 10:46 AM EDT) Pathologist [facility] Hepatitis C Antibody Nonreactive Nonreactive [facility] Comment:Antibodies to HCV no t detected; does not exclude early acuteHCV infection. Blood Venous blood specimen / Unknown 01/18/2025 10:46 AM EDT 01/18/2025 1:21 PM EDT us Angela Taylor DO LAB BLOOD ORDERABLES Final R esult Performing Organization Address [facility]/ZIP Co de Phone Number [facility] [address] [place] [phone] * Iron And Total Iron Binding Capacity (01/18/2025 10:46 AM EDT) Iron 56 30 - 160 mcg/dL [facility] Total Iron Binding Capacity 342 228 - 428 mcg/dL [facility] Percent Iron Saturation 16 15 - 50 % [facility] Unsaturated Iron Binding 286 ug/dL [facility] Blood Venous blood specimen / Unknown 01/18/2025 10:46 AM EDT 01/18/2025 1:21 PM EDT Angela Taylor LAB BLOOD ORDERABLES Final R esult Performing Organization Address City/[facility]/ZIP Co de Phone Number [facility] [address] [place] [phone] * Hepatitis A Antibody, Total (01/18/2025 10:46 AM EDT) Pathologist [facility] Hepatitis A Antibody IgG Nonreactive Nonreactive [facility] Blood Venous blood specimen / Unknown 01/18/2025 10:46 AM EDT 01/18/2025 1:21 PM EDT Angela Taylor DO LAB BLOOD ORDERABLES Final R esult Performing Organization Address [facility] Hospital/[facility] Co de Phone Number [facility] [address] [place] [phone] * Chlamydia/N. Gonorrhoeae RNA, TMA, Urogenitial (01/18/2025 10:46 AM EDT) [facility] CT PCR NOT DETECTED Not Detect. [facility] Comment:A not detected test result does not exclude the possibilityof infection because test results can be affected byimproper specimen collection, concurrent antibiotic therapy,or the number of organisms in the specimen which may bebelow the sensitivity of the test. As with many diagnostictests, results from the Xpert CT/NG assay should beinterpreted in conjunction with other laboratory andclinical data available to the clinician.Xpert CT/NG performance has not been evaluated in patientsless than 14 years of age. The assay should not be used forthe evaluationof suspected sexual abuse or for other medico-legalindications. Additional testing is recommended in anycircumstance when false positive or false negative resultscould lead to adverse medical, social or psychologicalconsequences. NG PCR NOT DETECTED Not Detect. [facility] Comment:A not detected test result does not exclude the possibilityof infection because test results can be affected byimproper specimen collection, concurrent antibiotic therapy,or the number of organisms in the specimen which may bebelow the sensitivity of the test. As with many diagnostictests, results from the Xpert CT/NG assay should beinterpreted in conjunction with other laboratory andclinical data available to the clinician.Xpert CT/NG performance has not been evaluated in patientsless than 14 years of age. The assay should not be used forthe evaluationof suspected sexual abuse or for other medico-legalindications. Additional testing is recommended in anycircumstance when false positive or false negative resultscould lead to adverse medical, social or psychologicalconsequences. Urine Urethral structure / Unknown 01/18/2025 10:46 AM EDT 01/18/2025 1:03 PM EDT Narrative [facility] - 01/18/2025 3:00 PM EDT Urine Angela Taylor DO LAB MICROBIOLOGY - GENERAL O RDERABLES Final Result Performing Organization Address City/[facility]/ZIP Co de Phone Number [facility] [address] [place] [phone] * Hepatitis B surface antigen, EIA (01/18/2025 10:46 AM EDT) Hepatitis B Surface Ag Negative Negative [facility] Blood Venous blood specimen / Unknown 01/18/2025 10:46 AM EDT 01/18/2025 1:21 PM EDT us Angela Taylor DO LAB BLOOD ORDERABLES Final R esult Performing Organization Address City/[facility]/ZIP Co de Phone Number [facility] [address] [place] [address] [phone] * Hepatitis B Core Antibody, Total (01/18/2025 10:46 AM EDT) Hepatitis B Core Antibody Nonreactive Nonreactive [facility] Blood Venous blood specimen / Unknown 01/18/2025 10:46 AM EDT 01/18/2025 1:21 PM EDT Angela Taylor DO LAB BLOOD ORDERABLES Final R esult Performing Organization Address City/[facility]/ZIP Co de Phone Number [facility] [address] [place] [phone] * RPR (Monitor) with Reflex to??Titer (01/18/2025 10:46 AM EDT) RPR (Monitor) w/Refl Titer NON-REACTI VE NON-REACT SANDRA [facility] Comment:THIS TEST WAS PERFOR MED AT:[employer] [place] [phone] BUSTOS MD Rapid Plasma Reagin Ab Titer TNP [facility] Blood Venous blood specimen / Unknown 01/18/2025 10:46 AM EDT 01/18/2025 1:21 PM EDT Angela Taylor DO LAB BLOOD ORDERABLES Final R esult Performing Organization Address City/[facility]/ZIP Co de Phone Number [facility] [address] [place] [phone] * HIV-1/2 Antigen and Antibodies, Fourth Generation, with Reflexes (01/18/2025 10:46 AM EDT) HIV AB/AG Nonreactive Nonreactive [facility] Comment:HIV-1 p24 Ag and/or HIV-1/HIV-2 Ab not detected.A test result that is nonreactive does not exclude thepossibility of exposure to or infection with HIV-1 and/orHIV-2. Nonreactive results in this assay for individualswith prior exposure to HIV-1 and/or HIV-2 may be due toantigen and antibody levels that are below the limit ofdetection of this assay.The [employer] HIV Ag/Ab Combo assay result andsupplemental assay results should be interpreted inconjunction with the patient's clinical presentation,history and other laboratory results. If the results areinconsistent with clinical evidence, additional testing issuggested to confirm the result. Blood Venous blood specimen / Unknown 01/18/2025 10:46 AM EDT 01/18/2025 1:21 PM EDT Angela Taylor LAB BLOOD ORDERABLES Final R esult Performing Organization Address [facility] de Phone Number [facility] [address] [place] [address] [phone] * Hepatitis B Surface Antibody, Qualitative (01/18/2025 10:46 AM EDT) ~Hepatitis B Surface Antibody GRAYZONE Nonreactive [facility] Comment:GRAYZONE: 8.00 mIU/m L TO 11.99 mIU/mLTHE IMMUNE STATUS OF THE INDIVIDUAL SHOULD BE FURTHERASSESSED BY CONSIDERING OTHER FACTORS, SUCH CLINICALSTATUS, FOLLOW-UP TESTING, ASSOCIATED RISK FACTORS, AND THEUSE OF ADDITIONAL DIAGNOSTIC INFORMATION. Blood Venous blood specimen / Unknown 01/18/2025 10:46 AM EDT 01/18/2025 1:21 PM EDT Angela Taylor LAB BLOOD ORDERABLES Final R esult Performing Organization Address [facility] de Phone Number [facility] [address] [place] [phone] * Varicella zoster antibody, IgG (01/18/2025 10:46 AM EDT) Varicella IgG Antibody 10.40 S/CO [facility] Comment:Signal to Cut-off S/ CO Interpretation --------- <1.00 Negative - Antibody not detected > or = 1.00 Positive - Antibody detected A positive result indicates that the patient has antibody to VZV but does not differentiate between an active or past infection. The clinical diagnosis must be interpreted in conjunction with the clinical signs and symptoms of the patient. This assay reliably measures immunity due to previous infection but may not be sensitive enough to detect antibodies induced by vaccination. Thus, a negative result in a vaccinated individual does not necessarily indicate susceptibility to VZV infection. A more sensitive test for vaccination-induced immunity is Varicella Zoster Virus Antibody Immunity Screen, ACIF.THIS TEST WAS PERFORMED AT:[employer] [place] [phone] BUSTOS MD Blood Venous blood specimen / Unknown 01/18/2025 10:46 AM EDT 01/18/2025 1:21 PM EDT Angela Taylor LAB BLOOD ORDERABLES Final R esult Performing Organization Address [facility]/ZIP Co de Phone Number [facility] [address] [place] [phone] * TSH (01/18/2025 10:46 AM EDT) Thyroid Stimulating Hormone 1.17 0.32 - 4.0 uIU/mL [facility] Comment:TSH 3rd Generation ( [facility]) Blood Venous blood specimen / Unknown 01/18/2025 10:46 AM EDT 01/18/2025 1:21 PM EDT Angela Taylor DO LAB BLOOD ORDERABLES Final R esult Performing Organization Address [facility]/ZIP Co de Phone Number [facility] [address] [place] [address] [phone] * T4, Free (01/18/2025 10:46 AM EDT) Free T4 (Free Thyroxine) 0.84 0.71 - 1.85 ng/dL [facility] Blood Venous blood specimen / Unknown 01/18/2025 10:46 AM EDT 01/18/2025 1:21 PM EDT Angela Taylor LAB BLOOD ORDERABLES Final R esult [facility] [address] [place] [phone] * Hemoglobin A1c (01/18/2025 10:46 AM EDT) Hemoglobin A1c 5.3 <6.0 % [facility] Comment:Hemoglobin A1C Refer ence Range Adults: 4.8 - 6.0 % Non diabetic: < 6.0 % Goal: < 7.0 %Additional Action Suggested: > 8.0 %Note: Hemoglobin A1c results are invalid for patients with abnormal amounts of HbF. Blood transfusions may impact the HbA1c concentration in the patient sample. Estimated Average Glucose 105 mg/dL [facility] Comment:eAG = Estimated ave rage glucose which is %A1C expressed asaverage glucose, using the formula of the O0P-WjjxtepWbcoekk Glucose study (ADAG), Diabetes Care, Vol.31,#8,May. 2007 Blood Venous blood specimen / Unknown 01/18/2025 10:46 AM EDT 01/18/2025 1:21 PM EDT us Angela Taylor DO LAB BLOOD ORDERABLES Final R esult Performing Organization Address [facility] Co de Phone Number [facility] [address] [place] [address] [phone] * Ferritin (01/18/2025 10:46 AM EDT) Pathologist [facility] Ferritin 25 10 - 122 ng/mL [facility] Blood Venous blood specimen / Unknown 01/18/2025 10:46 AM EDT 01/18/2025 1:21 PM EDT Angela Taylor DO LAB BLOOD ORDERABLES Final R esult Performing Organization Address [facility]/ZIP Co de Phone Number [facility] [address] [place] [address] [phone] * Hepatic Function Panel (01/18/2025 10:46 AM EDT) Bilirubin, Total 0.6 0.0 - 1.0 mg/dL [facility] Bilirubin, Direct 0.2 0.0 - 0.5 mg/dL [facility] Aspartate Amino Transferase 29 5 - 31 U/L [facility] Alanine Aminotransferase 17 0 - 31 U/L [facility] Total Protein 7.3 6.5 - 8.0 g/dL [facility] Albumin Level 4.3 3.5 - 5.0 g/dL [facility] Alkaline Phosphatase 72 39 - 117 U/L [facility] Blood Venous blood specimen / Unknown 01/18/2025 10:46 AM EDT 01/18/2025 1:21 PM EDT us nAgela Taylor DO LAB BLOOD ORDERABLES Final R esult [facility] [address] [place] [address] [phone] * Lipid Panel, Standard (01/18/2025 10:46 AM EDT) Triglycerides 37 <150 mg/dL [facility] Comment:Desirable Triglyceri de: less than 150 mg/dLBorderline High Triglyceride 150-199 mg/dLHigh Triglyceride: 200-499 mg/dLVery High Triglyceride: greater than or equal to 5OO mg/dL Cholesterol 153 <200 mg/dL [facility] Comment:Desirable Cholestero l: less than 200 mg/dLBorderline High Cholesterol: 200-239 mg/dLHigh Cholesterol: greater than 239 mg/dL LDL Cholesterol Calculated 98 <100 mg/dL [facility] Comment:Desirable LDL: less than 100 mg/dLNear Optimal/Above Optimal LDL: 110- 129 mg/dLBorderline High LDL: 130-159 mg/dLHigh LDL: 160-189 mg/dLVery High LDL: greater than or equal to 190 mg/dL HDL Cholesterol 48 >40 mg/dL [facility] Comment:Desirable HDL: great er than 40 mg/dL Note: This HDL assay may give artificially low results in patients with liver disease. Blood Venous blood specimen / Unknown 01/18/2025 10:46 AM EDT 01/18/2025 1:21 PM EDT Angela Taylor DO LAB BLOOD ORDERABLES Final R esult Performing Organization Address City/[facility]/ZIP Co de Phone Number [facility] [address] [place] [phone] * (ABNORMAL) Basic Metabolic Panel (01/18/2025 10:46 AM EDT) Sodium 140 135 - 145 mmol/L [facility] Potassium 3.4 3.3 - 5.1 mmol/L [facility] Chloride 110(H) 96 - 108 mmol/L [facility] Carbon Dioxide 24 22 - 29 mmol/L [facility] Anion Gap 9(L) 12 - 20 [facility] Urea Nitrogen (BUN) 12 9 - 16 mg/dL [facility] Creatinine, Serum 0.77 0.5 - 1.4 mg/dL [facility] Estimated Glomerular Filt Rate >60 [facility] Comment:Chronic Kidney Disea se: Estimated GFR < 60 mL/min/[id number] Kidney Disease: Estimated GFR < 15 mL/min/1.73m2 Glucose 75 60 - 115 mg/dL [facility] Calcium 8.8 8.4 - 10.2 mg/dL [facility] Blood Venous blood specimen / Unknown 01/18/2025 10:46 AM EDT 01/18/2025 1:21 PM EDT Angela Taylor DO LAB BLOOD ORDERABLES Final R esult Performing Organization Address City/[facility]/ZIP Co de Phone Number [facility] [address] [place] [phone] * Pap Smear (03/02/2023 3:26 PM EDT) 03/02/2023 3:26 PM EDT 03/08/2023 8:30 AM EDT Narrative [facility] - 03/28/2023 11:43 AM EDT ----- ------- Name: Sheela Gilmore ? Age/Sex: ? : 2000 Unit#: [id number] ?? Attend Dr: Erika Quan CNM ?Re03/02/23 ?Status: DEP REF ? Location: HO.LNP ?Disch: ? ----- ------- SPEC : [id number] ? RECD: 03/08/23 ? STATUS: ??SOUT ? REQ NUM: [id number] ? SYED: 03/02/23-1525 ? SUBM DR: Erika Quan CNM ? ENTERED: ??03/08/23-1019 ?SP TYPE: Pap Smr ?OTHR DR: Angela Taylor DO ? ORDERED: ??Pap Smear ? Interpretation ?? Satisfactory for evaluation. ?? Mild inflammation. ?? Negative for intraepithelial lesion or malignancy. ?Clinical Information LMP: 12/12/22 Previous PAP test: Unknown date/findings ? Material Received ?? ThinPrep-Cervical Copies To: ?? Angela Taylor DO ?? [address] [facility] ?? [place] [id number] ? Erika Quan CNM ?? [address] [place] [address] [place] [address] ?? [place] [id number] ?? [phone] ----- ------- Signed (signature on file) ALISON Goddard ([facility]) 03/28/23 1143 ? ----- ------- ? END OF REPORT ? [facility] External Provider LAB CYT OLOGY ORDERABLES Final Result [facility] [address] [place] [phone] from Last 3 Months or Most Recently Relevant to Health Maintenance Insurance [facility] [place] [facility] C3 * Guarantor: Sheela Gilmore Account Type Relation to Patient Date of Phone Billing Address Personal/Family Self [place] * Guarantor: Sheela Gilmore Account Type Relation to Patient Date of Phone Billing Address Personal/Family Self [place] Care Teams [employer] School Professional Relationship Specialty Start Date End Date Angela Taylor DO [address] [place] [address] PCP - General Family Medicine 01/18/25
--- OUTSIDE RECORDS SUMMARY | 2025-01-30 16:52 | XMS_ITS | Encounter Summary ---
Author Organization [employer] [facility] Address [address] [place] [address] [address] [address] Care Team Providers Care Tractor Trailer Operator Name Role Phone Angela Taylor DO Primary Care Provider [phone] Reason for Referral * Consultation (Routine) - Authorized Specialty Diagnoses / Procedures Referred By [employer] [facility] Referred To Contact Midwifery Diagnoses Metrorrhagia Nicki Sanchez MD [address] [place] [address] Phone: tel: fax: Merle Austin CNM [address] [place] [address] Phone: tel: fax: Referral ID Status Reason Start Date Expiration Date Visits Requested Visits Authorized [id number] Authorized Consult and Treat 01/30/2025 01/30/2026 1 1 Reason for Visit * Reason Comments Vaginal Itching Urinary Frequency Encounter Details Date Type Department Care Team (Late st Contact Info) Description 01/30/2025 10:45 AM EDT Office Visit [facility] [address] [place] [phone] Nicki Sanchez MD [address] [place] [address] [phone] Vaginal itching; Urinary frequency; Metrorrhagia; Rash Social History Tobacco Use Types Packs/Day Years [...] AM EDT documented as of this encounter Last Filed Vital Signs Vital Sign Reading Time Taken Comments Blood Pressure 100/70 01/30/2025 10:51 AM EDT ma nually Pulse 58 01/30/2025 10:51 AM EDT Temperature 36.2 ??C (97.2 ??F) 01/30/2025 10:51 AM E DT Respiratory Rate 16 01/30/2025 10:51 AM EDT Oxygen Saturation - - Inhaled Oxygen Concentration - - Weight 60.9 kg (134 lb 4 oz) 01/30/2025 10:51 AM EDT Height 167.6 cm (5' 6 ) 01/30/2025 10:51 AM EDT Body Mass Index 21.67 01/30/2025 10:51 AM EDT documented in this encounter Progress Notes * Nicki Barker MD - 01/30/2025 10:45 AM EDT Images from the original note were not included. SUBJECTIVE: Sheela Daigle is a 24 y.o. year old female who presents for vulvar itching, metrorrhagia. Acute Concerns: Patient reports she has had Nexplanon implant for about 3 years now but recently in the past month she has been having increased length of her menstrual period with increased flow Patient reports she was diagnosed recently with Ureaplasma infection and was treated, she completedall her antibiotics and has had many not had any other sexual encounter after that, today she reports she has been having itching on her external labia area and a rash on external labia area and perineal area Social History Social History Narrative Not on file Patient Active Problem List Diagnosis Anemia BMI 21.0-21.9, adult Anxiety Metrorrhagia Rash Family History Problem Relation Name Age of Onset Sleep apnea Mother Other (Pre-diabetes) Mother Anxiety disorder Mother No Known Problems Father Diabetes Maternal Grandmother Diabetes Maternal Grandfather Diabetes Paternal Grandmother Diabetes Paternal Grandfather Review of Systems Constitutional: Negative. HENT: Negative. Respiratory: Negative. Cardiovascular: Negative. Genitourinary: Positive for menstrual problem. Negative for decreased urine volume, difficulty urinating, dyspareunia, dysuria, enuresis, flank pain, frequency, genital sores, hematuria, pelvic pain,urgency, vaginal bleeding, vaginal discharge and vaginal pain. OBJECTIVE: Vitals: 01/30/25 1051 BP: 100/70 BP Location: Left arm Patient Position: Sitting BP Cuff Size: Adult Pulse: 58 Resp: 16 Temp: 97.2 ??F (36.2 ??C) TempSrc: Oral Weight: 134 lb 4 oz (60.9 kg) Height: 5' 6 (1.676 m) Physical Exam Exam conducted with a leather cutter present. Constitutional: Appearance: Normal appearance. Cardiovascular: Rate and Rhythm: Normal rate and regular rhythm. Pulmonary: Effort: Pulmonary effort is normal. Breath sounds: Normal breath sounds. Abdominal: General: Abdomen is flat. Palpations: Abdomen is soft. Genitourinary: Vagina: Normal. Comments: Rash Neurological: Mental Status: She is alert. Follow Up: No follow-ups on file. Current Outpatient Medications on File Prior to Visit Medication Sig Dispense Refill cyclobenzaprine (Flexeril) 5 MG tablet Take 1-2 tablets by oral route every evening for 7 days 30 tablet 0 ergocalciferol (Vitamin D2) 1.25 MG (54505 UT) capsule Take 1 capsule (1.25 mg) by mouth 1 (one) time per week for 12 doses. 12 capsule 0 etonogestrel-eluting (Nexplanon) 68 mg contraceptive implant Inject 68 mg under the skin. ferrous sulfate 324 (65 Fe) MG EC tablet Take 324 mg by mouth 2 times daily. fluconazole (Diflucan) 150 MG tablet TAKE 1 TABLET BY MOUTH DAILY FOR 1 DOSE. ADMINISTER ON DAY 1 OF THERAPY fluticasone (Flonase Allergy Relief) 50 MCG/ACT nasal spray Administer 1-2 sprays into affected nostril(s) at bed time. loratadine (Claritin) 10 MG tablet Take 1 tablet by mouth at bed time. naproxen (Naprosyn) 500 MG tablet TAKE 1 TABLET BY MOUTH TWICE A DAY 60 tablet 0 [] trimethoprim-polymyxin b (Polytrim) ophthalmic solution Administer 1 drop into the right eye every 4 (four) hours for 7 days. 10 mL 0 No current facility-administered medications on file prior to visit. Problem List Items Addressed This Visit Metrorrhagia I will order TSH and BV panel, patient will be contacted with results I will refer patient for f/u Relevant Orders POCT Urine (Completed) Referral to Gynecology ([facility]) TSH W/Reflex to FT4 Rash Relevant Medications clotrimazole-betamethasone (Lotrisone) cream Other Visit Diagnoses Vaginal itching Relevant Orders Bacterial Vaginosis (Completed) Chlamydia/N. Gonorrhoeae RNA, TMA, Urogenitial Urinary frequency Relevant Orders POCT Urinalysis (Completed) Culture, Urine, Routine documented in this encounter Miscellaneous Notes * Assessment & Plan Note - Nicki Barker MD - 01/30/2025 4:47 PM EDT Associated Problem(s): Metrorrhagia I will order TSH and BV panel, patient will be contacted with results I will refer patient for f/u documented in this encounter Plan of Treatment Scheduled Orders Name Type Priority Associated Diagnoses Orde r Schedule Chlamydia/N. Gonorrhoeae RNA, TMA, Urogenitial Microbiology Routine Vaginal itching Ordered: 01/30/2025 TSH W/Reflex to FT4 Lab Routine Metrorrhagia Expected: 01/30/2025 (Approximate), Expires: 01/30/2026 Culture, Urine, Routine Microbiology Routine Urinary frequency Ordered: 01/30/2025 Scheduled Referrals Name Type Priority Associated Diagnoses Order Schedule Referral to Gynecology ([facility]) Outpatient Referral Routine Metrorrhagia Expected: 01/30/2025 (Approximate), Expires: 01/30/2026 documented as of this encounter Procedures Procedure Name Priority Date/Time Associated Diagnosis Comments POCT , URINE Routine 01/30/2025 11:22 AM EDT Metrorrhagia POCT URINALYSIS DIPSTICK Routine 01/30/2025 11:06 AM EDT Urinary frequency BACTERIAL VAGINOSIS PANEL Routine 01/30/2025 10:54 AM EDT Vaginal itching documented in this encounter Results * POCT Urine (01/30/2025 11:22 AM EDT) Preg Test, Ur Negative Negative, Indeterminate, None Detected, Invalid, Specimen unsatisfactory for evaluation, Weakly Positive QC Media Lot # [id number] Lot# Expiration Date [id number] Urine 01/30/2025 11:2 2 AM EDT us Nicki Barker MD POINT OF CARE TEST [...] Date Urine 01/30/2025 11:0 6 AM EDT us Nicki Barker MD POINT OF CARE TEST EN TER/EDIT ORDERABLES Final Result * (ABNORMAL) Bacterial Vaginosis (01/30/2025 10:54 AM EDT) TRICHOMONAS VAGINALIS DETECTION BY PCR NOT DETECTED Not Detect [facility] BACTERIAL VAGINOSIS DETECTION BY PCR POSITIVE(A) Negative [facility] Comment:The BV organism targ ets of [...] GROUP DETECTION BY PCR DETECTED(A) Not Detect [facility] Nevaeh glab krusei PCR NOT DETECTED Not Detect [facility] Swab Vaginal structure / Unknown 01/30/2025 10:54 AM EDT 01/30/2025 2:07 PM EDT us Nicki Barker MD LAB MICROBIOLOGY - NERAL ORDERABLES Final Result [facility] [address] [place] [phone] documented in this encounter Visit Diagnoses Diagnosis Vaginal itching Pruritus of genital organs Urinary frequency Metrorrhagia Rash Rash and other nonspecific skin eruption documented in this encounter Additional Health Concerns Assessment Noted Time PHQ-9 Depression Total Score: 7 01/19/20 10:46 AM EDT documented as of this encounter Care Teams Tractor Trailer Operator Relationship Specialty Start Date End Date Angela Taylor DO [address] [place] [phone] PCP - General Family Medicine 01/18/25 documented as of this encounter
--- OUTSIDE RECORDS SUMMARY | 2025-01-30 16:52 | XMS_ITS | Encounter Summary ---
Author Organization [facility] Address [address] [facility] [address] [place] [address] Care Team Providers Care Printed Circuit Board Preassembler Name Role Phone Angela Taylor DO Primary Care Provider [phone] Reason for Visit * Reason Onset Date Comments Nurse Triage 01/30/2025 Encounter Details Date Type Department Care Team ([facility] st Contact Info) Description 01/30/2025 Telephone [facility]INE [address] [place], [place] [phone] Angela Taylor DO [address] [place], [place] [phone] Nurse Triage Social History Tobacco Use Types Packs/Day Years [...] AM EDT documented as of this encounter Miscellaneous Notes * Telephone Encounter - Mariam Alonzo RN - 01/30/2025 10:06 AM EDT No industrial health 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 Call returned to Sheela Daigle to triage below. Reports having vaginal rash x 2 days. Pt denies any fluid filled pustules. No vaginal discharge. No pain /burning or odor to urine. Urinary frequency. Per pt rash is itchy. Pt has not used any new soaps. No recent shaving or use of wax to area. Per pt denies any concerns for STI. Pt advised of disposition, agrees to sick onsite with team provider today. Protocol Used: Vaginal Symptoms (Adult) Protocol-Based Disposition: See in Office or Video Visit Today or Tomorrow Future Appointments Date Time Provider Department Center 01/30/2025 10:45 AM Nicki Barker MD MEDICINE [facility] Insurance verified as active per Real Time Eligibility in [facility]. Positive Triage Question: * Rash (e.g., redness, tiny bumps, sore) of genital area and present > 24 hours * All higher-acuity triage questions were negative Care Advice Discussed: * Reassurance and Education - Mild Vaginal Rash * Reasons To Call Back - Rash spreads or becomes worse - Fever occurs - You become worse * Telephone Encounter - Loraine Valerio - 01/30/2025 9:59 AM EDT Symptom: Rash or Redness on One Body Area Only, Menstrual Symptoms. Outcome: Schedule an appointment to be seen within 3 days Reason: Caller denied all higher acuity questions The caller accepted this outcome. [phone] greek documented in this encounter Plan of Treatment Not on file documented as of this encounter Visit Diagnoses Not on filedocumented in this encounter Additional Health Concerns Assessment Noted Time PHQ-9 Depression Total Score: 7 01/19/20 10:46 AM EDT documented as of this encounter Care Teams Printed Circuit Board Preassembler Relationship Specialty Start Date End Date Angela Taylor DO [address] [place] [address] PCP - General Family Medicine 01/18/25 documented as of this encounter
--- OUTSIDE RECORDS SUMMARY | 2025-01-30 16:52 | XMS_ITS | Encounter Summary ---
Author Organization [employer] Address [address] [facility] [address] [place] [address] Care Team Providers Care Standards Analyst Name Role Phone Angela Taylor DO Primary Care Provider [phone] Encounter Details Date Type Department Care Team (Latest Contact Info) Description 01/30/2025 Travel Social History Tobacco Use Types Packs/Day Years [...] documented as of this encounter Care Teams Standards Analyst Relationship Specialty Start Date End Date Angela Taylor DO [address] [place] [address] PCP - General Family Medicine 01/18/25 documented as of this encounter
--- OUTSIDE RECORDS SUMMARY | 2025-01-30 16:52 | XMS_ITS | Clinical Summary ---
Author Organization [facility] Address [id number] [place] [id number] Care Team Providers Care Sanitary Chemist Name Role Phone Angela Taylor DO Primary Care Provider [phone] Surgical History Surgery Date Site/Laterality Comments OTHER [...] age to complete this topic Meningococcal B Vaccine Aged Out No l onger eligible based on patient's age to complete this topic Pneumococcal Vaccine: Pediatrics (0 to 5 Years) and At-Risk Patients (6 to 64 Years) Aged Out No longer eligible based on patient's age to complete this topic RSV Immunization Patients Under 20 months Aged Out No longer eligible based on patient's age to complete this topic Care Teams Sanitary Chemist Relationship Specialty Start Date End Date Angela Taylor DO [address] [place] [address] PCP - General Internal Medicine 05/11/18
[2025-01-30 18:15] LABS: CT PCR NOT DETECTED (Not Detect.); NG PCR NOT DETECTED (Not Detect.)
== END 2025-01-30 14:07 | disposition home or self-care (01) ==
LOC: HO.LNP 14:06
PROVIDERS: Visit Provider Internal Medicine
DX: N89.8 Other specified noninflammatory disorders of vagina (principal); R35.0 Frequency of micturition
CPT/HCPCS: 81515; 87086; 87491; 87591

== ENCOUNTER 2025-02-12 18:00 | Outpatient (REF) | payer MEDICAID, SELFPAY ==
--- OUTSIDE RECORDS SUMMARY | 2025-02-12 18:48 | XMS_ITS | Encounter Summary ---
Author Organization [employer] Address [address] [facility] [address] [place] [address] Care Team Providers Care Crop Quantitative Geneticist Name Role Phone Angela Taylor DO Primary Care Provider [phone] Encounter Details Date Type Department Care Team (Latest Contact Info) Description 02/12/2025 Travel Social History Tobacco Use Types Packs/Day [...] documented as of this encounter Care Teams Crop Quantitative Geneticist Relationship Specialty Start Date End Date Angela Taylor DO [address] [place] [address] PCP - General Family Medicine 01/18/25 documented as of this encounter
--- OUTSIDE RECORDS SUMMARY | 2025-02-12 18:48 | XMS_ITS | Encounter Summary ---
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 Details Date Type Department Care Team (Latest Contact Info) Description 02/12/2025 3:45 PM EDT Office Visit [facility] [address] [place], [place] [phone] Merle Austin CNM [address] [place] [address] Abnormal uterine bleeding (Primary Dx); Dysuria; Checking subdermal contraceptive Social History Tobacco Use Types Packs/Day Years [...] Sign Reading Time Taken Comments Blood Pressure 115/70 02/12/2025 4:00 PM EDT Pulse 70 02/12/2025 4:00 PM EDT Temperature 36.8 ??C (98.2 ??F) 02/12/2025 4:00 PM ED T Respiratory Rate 16 02/12/2025 4:00 PM EDT Oxygen Saturation 98% 02/12/2025 4:00 PM EDT Inhaled Oxygen Concentration - - Weight 60.6 kg (133 lb 9.6 oz) 02/12/2025 4:00 P M EDT Height 167.6 cm (5' 6 ) 02/12/2025 4:00 PM EDT Body Mass Index 21.56 02/12/2025 4:00 PM EDT documented in this encounter Progress Notes * Merle Austin CNM - 02/12/2025 3:45 PM EDT Subjective Patient ID: Sheela Daigle is a 24 y.o. female who presents for AUB Treated for bacterial vaginosis/vulvovaginal candidiasis earlier this month, Gonorrhea/Chlamydia/trichomonas negative. HCG negative, TSH ordered, needs to be collected. Pap NIL 02/2023. Nexplanon inserted 03/02/2023 per outside records. Notes vaginal or urinary infections when she has prolonged bleeding episodes. Completed treatment for vulvovaginal candidiasis and bacterial vaginosis with full resolution of vaginal symptoms. Now notes dysuria. Not sexually active since December. Happy with Nexplanon otherwise, not planning in the next year. Normal cbc 01/2025. Review of Systems Constitutional: Negative for chills and fever. Gastrointestinal: Negative for abdominal pain. Genitourinary: Positive for dysuria, menstrual problem and vaginal bleeding. Negative for flank pain, frequency, pelvic pain, urgency, vaginal discharge and vaginal pain. Musculoskeletal: Negative for back pain. Objective BP 115/70 (BP Location: Left arm, Patient Position: Sitting, BP Cuff Size: Adult) Pulse 70 Temp98.2 ??F (36.8 ??C) (Temporal) Resp 16 Ht 5' 6 (1.676 m) Wt 133 lb 9.6 oz (60.6 kg) LMP 01/30/2025 (Exact Date) SpO2 98% BMI 21.56 kg/m?? Physical Exam Constitutional: Appearance: Normal appearance. Abdominal: Tenderness: There is no right CVA tenderness or left CVA tenderness. Skin: Comments: Nexplanon palpable in left arm, site well healed Neurological: Mental Status: She is alert. Psychiatric: Mood and Affect: Mood normal. Behavior: Behavior normal. Assessment/Plan Diagnoses and all orders for this visit: Abnormal uterine bleeding Will get TSH as ordered. Let's trial ibuprofen as rx'd. Advised not to take with Naproxen (rx on file). Will have pharmacy review with her as well. If not helpful, could try 6wks combined oral contraceptive pill. No contraindications to oral contraceptive pill use. Consider pelvic ultrasound if no improvement. Dysuria - Culture, Urine, Routine Bleeding today, so UA deferred. Will send C&S and treat positive results. Denies vaginal symptoms. Checking subdermal contraceptive Report prolonged, frequent or heavy bleeding. Remove/replace Nexplanon by 5y from insertion date. May remove any time prior to that if desired. Other orders - ibuprofen (IBU) 800 MG tablet; 1 tablet every 8 hours with food during menses, up to 7 days. Do not take with Naproxen documented in this encounter Plan of Treatment Scheduled Orders Name Type Priority Associated Diagnoses Orde r Schedule Culture, Urine, Routine Microbiology Routine Dysuria Ordered: 02/12/2025 documented as of this encounter Visit Diagnoses Diagnosis Abnormal uterine bleeding- Primary Unspecified disorder of menstruation and other abnormal bleeding from female genital tract Dysuria Checking subdermal contraceptive Surveillance of previously prescribed implantable subdermal contraceptive documented in this encounter Additional Health Concerns Assessment Noted Time PHQ-9 Depression Total Score: 7 01/19/20 10:46 AM EDT documented as of this encounter Care Teams Male Infertility Specialist Relationship Specialty Start Date End Date Angela Taylor DO [address] [place] [id number] PCP - General Family Medicine 01/18/25 documented as of this encounter
--- OUTSIDE RECORDS SUMMARY | 2025-02-12 18:48 | XMS_ITS | Clinical Summary ---
Author Organization [employer] Address [address] [place] [address] [address] [place] [address] Care Team Providers Care Data Engineer Name Role Phone Angela Taylor DO Primary Care Provider Allergies Active Allergy Reactions Criticality Noted Date [...] 23 Active ergocalciferol (Vitamin D2) 1.25 MG (99259 UT) capsule Take 1 capsule (1.25 mg) by mouth 1 (one) time per week for 12 doses. 12 capsule 01/25/20 25 2024 Active clotrimazole-bet amethasone (Lotrisone) creamIndications :Rash Apply topically 2 times daily for 28 days. 45 g 01/31/20 25 2024 Active ibuprofen (IBU) 800 MG tablet 1 tablet every 8 hours with food during menses, up to 7 days. Do not take with Naproxen 21 tablet 02/13/20 Active ascorbid acid ER (Vitamin C) 500 [...] to Pharmacy)) ergocalciferol (Vitamin D-2) 1.25 MG (13187 UT) capsule take 1 capsule by oral route every week 07/24/202024 Discontinued(I neffective) ulipristal (Peggy) 30 mg tablet Take up to 5 days after sex as needed 1 tablet 01/13/202024 Discontinued(M ed list cleanup (will not trigger notification to Pharmacy)) trimethoprim-blair ymyxin b (Polytrim) ophthalmic solution Administer 1 drop into the right eye every 4 (four) hours for 7 days. 10 mL 01/19/20 25 2024 metroNIDAZOLE (Flagyl) 500 MG tabletIndication s:Bacterial vaginosis Take 1 tablet (500 mg) by mouth 2 times daily for 7 days. 14 tablet 01/31/20 25 2024 clotrimazole (Gyne-Lotrimin) 1 % vaginal creamIndications :Yeast infection Insert 1 applicator into the vagina in the evening for 7 days. 45 g 01/31/20 25 2024 Active Problems Patient Care Coordination [...] organization. Date Type Department Care Team Description 02/12/2025 3:45 PM EDT Office Visit [address] [address] Merle Austin CNM Abnormal uterine bleeding (Primary Dx); Dysuria; Checking subdermal contraceptive 02/12/2025 Travel 01/31/[address] [address] Funmi Arthur MA Internal Referral 01/31/[address] [address] Angela Taylor DO Results 01/30/2025 10:45 AM EDT Office Visit [address] [address] Nicki Sanchez MD Vaginal itching; Urinary frequency; Metrorrhagia; Rash 01/30/2025 Orders Only [address] [address] Nicki Sanchez MD Yeast infection (Primary Dx); Bacterial vaginosis 01/30/2025 Travel 01/30/[address] [address] Angela Taylor DO Nurse Triage 01/22/[address] [address] Angela Taylor DO Medication Question 01/21/[address] [address] Angela Taylor DO 01/18/2025 9:30 AM EDT Office Visit [facility] [address] [place] [address] Angela Taylor DO Routine history and physical examination of adult (Primary Dx); Anemia, unspecified type; Anxiety; Acute bacterial conjunctivitis of right eye; BMI 21.0-21.9, adult 01/18/2025 Travel 01/10/2025 Patient Outreach [facility] [address] [place] [address] Angela Taylor DO Pre-visit Planning 01/09/2025 Population Health Risk Score [facility] () [address] [phone] Provider, Population Health Generic from Last 3 [...] Mass Index 21.56 02/12/2025 4:00 PM EDT Plan of Treatment Health Maintenance Due Date Last Done Comments HPV Vaccines (3 - 3-dose series) 11/27/2016 08/23/2016, 05/27/2016 COVID-19 Vaccine ( season) 2024 Influenza Vaccine (#1) 2024 Alcohol/Substance Use Screening 01/18/2026 01/18/2025 Depression Screening 01/18/2026 01/18/2025, 01/19/20 SDOH Screening 01/18/2026 01/18/2025 Family Planning (PISQ) 02/12/2026 02/12/2025 Tobacco Screening 02/12/2026 02/12/2025 Pap Smear 03/02/2026 03/02/2023 DTaP/Tdap/Td Vaccines (6 [...] Procedure Name Priority Date/Time Associated Diagnosis Comments CULTURE, URINE, ROUTINE Routine 01/30/2025 11:36 AM EDT Urinary frequency POCT , URINE Routine 01/30/2025 11:22 AM EDT Metrorrhagia POCT URINALYSIS DIPSTICK Routine 01/30/2025 11:06 AM EDT Urinary frequency CHLAMYDIA/N. GONORRHOEAE RNA, TMA, UROGENITAL Routine 01/30/2025 10:54 AM EDT Vaginal itching BACTERIAL VAGINOSIS PANEL Routine 01/30/2025 10:54 AM [...] Recently Relevant to Health Maintenance Results * Culture, Urine, Routine (01/30/2025 11:36 AM EDT) Urine Urine specimen obtained by clean catch procedure / Unknown 01/30/2025 11:36 AM EDT 01/30/2025 2:11 PM EDT Comment:UACC Narrative [facility] - 01/31/2025 10:48 AM EDT Urine Culture No growth. Specimen Source: Urine clean catch us Nicki Barker MD LAB MICROBIOLOGY - [facility] ORDERABLES Final Result [facility] [address] [place] [phone] * POCT Urine (01/30/2025 11:22 AM EDT) Preg Test, Ur Negative Negative, Indeterminate, None Detected, Invalid, Specimen unsatisfactory for evaluation, Weakly Positive QC Media Lot # [id number] Lot# Expiration Date ,312,026 Urine 01/30/2025 11:2 2 AM EDT us [...] Media Lot # [id number] Lot# Expiration Date ,025 Urine 01/30/2025 11:0 6 AM EDT Nicki Barker MD POINT OF CARE TEST EN TER/EDIT ORDERABLES Final Result * (ABNORMAL) Bacterial Vaginosis (01/30/2025 10:54 AM EDT) TRICHOMONAS VAGINALIS DETECTION BY PCR NOT DETECTED Not Detect [facility] BACTERIAL VAGINOSIS DETECTION BY PCR POSITIVE(A) Negative [facility] Comment:The BV organism targ ets [...] GROUP DETECTION BY PCR DETECTED(A) Not Detect [facility] Nevaeh glab krusei PCR NOT DETECTED Not Detect [facility] Swab Vaginal structure / Unknown 01/30/2025 10:54 AM EDT 01/30/2025 2:07 PM EDT Nicki Barker MD LAB MICROBIOLOGY - [facility] ORDERABLES Final Result [facility] [address] [place] [phone] * Chlamydia/N. Gonorrhoeae RNA, TMA, Urogenitial (01/30/2025 10:54 AM EDT) Only the most recent of2 resultswithin the time period is included. CT PCR NOT DETECTED Not Detect. [facility] Comment:A not detected test result does [...] psychologicalconsequences. NG PCR NOT DETECTED Not Detect. [facility] Comment:A not detected test result does [...] lead to adverse medical, social or psychologicalconsequences. Swab (Vaginal Swab) 01/30/2025 10:54 AM EDT 01/30/2025 2:07 PM EDT Narrative [facility] - 01/30/2025 6:16 PM EDT Vaginal us Nicki Barker MD LAB MICROBIOLOGY - [facility] ORDERABLES Final Result [facility] [address] [place] [phone] * (ABNORMAL) Vitamin D, 25-Hydroxy, Total, Immunoassay (01/18/2025 10:46 AM EDT) Vitamin D 25-OH Total 13.7(L) >30 ng/mL [facility] Comment: Health Based Reference Values*< 20 ??ng/mL ??Ejmpurais43-49 ng/mL ??Insufficient> 30 ??ng/mL ??Sufficient*Georgina FERRER. N [...] DO LAB BLOOD ORDERABLES Final R esult [facility] [address] [place] [phone] * Vitamin B12 (Cobalamin) and Folate Panel, Serum (01/18/2025 10:46 AM EDT) Vitamin B12 409 200 - 900 pg/mL [facility] Comment:NORMAL 200-900 PG/ML INDETERMINATE 160-199 PG/ML DEFICIENT < 160 PG/ML Folate 11.7 > or = 4.0 ng/mL [facility] Comment:Reference Values:> o r = 4.0 ng/mL< 4.0 ng/mL suggests folate deficiency Methotrexate, aminopterin and folinic acid(leucovorin) are chemotherapeutic agents whose molecularstructures are similar to folate; therefore, the Architectfolate assay cannot be used for patients using these drugs. Blood 01/18/2025 10:4 6 AM EDT 01/18/2025 1:21 PM EDT us Angela Taylor DO LAB BLOOD ORDERABLES Final R esult [facility] [address] [place] [phone] * T-SPOT??.TB (01/18/2025 10:46 AM EDT) [facility] T Spot TB Negative Negative [facility] Comment:A negative test resu lt does [...] as aquantitative test. TS PANEL A 0 [facility] TS PANEL B 0 [facility] Negative Control Passed [facility] Positive Control Passed [facility] Comment:For additional infor sabine, please refer tohttp://education.[employer]/faq/FKY802(This link is being provided for informational/educational purposes only.)THIS TEST WAS PERFORMED AT:[id number] [place] [phone] PATHAK MD,PHD 01/18/2025 10:4 6 AM EDT 01/18/2025 1:21 PM EDT us Angela Jurcsak DO LAB BLOOD ORDERABLES Final R esult [facility] [address] [place] [phone] * Measles, Mumps, and Rubella (MMR) Antibodies??(IgG) Panel, Immune Status (01/18/2025 10:46 AM EDT) Mumps Virus IgG Antibody 31.30 AU/mL [facility] Comment:AU/mL Interpretation ------- <9.00 Not consistent with immunity9.00-10.99 Equivocal>10.99 Consistent with immunityThe presence of mumps IgG antibody suggests immunizationor past or current infection with mumps virus. Rubella IgG Antibody 1.13 Index [facility] Comment:Index Interpretation ----- <0.90 Not consistent with immunity 0.90-0.99 Equivocal > or = 1.00 Consistent with immunityThe presence of rubella IgG antibody suggestsimmunization or past or current infection withrubella virus.THIS TEST WAS PERFORMED AT:[employer] [place] [phone] BUSTOS MD Rubeola IgG (Measles) 20.20 AU/mL [facility] Comment:AU/mL Interpretation ----- <13.50 Not consistent with jmwmsutw71.50-16.49 Equivocal>16.49 Consistent with immunityThe presence of measles IgG suggests immunization orpast or current infection with measles virus.For additional information, please refer tohttp://education.[employer]/faq/ERT846(This link is being provided for informational/educational purposes only.) Blood Venous blood specimen / Unknown 01/18/2025 10:46 AM EDT 01/18/2025 1:21 PM EDT Angela Taylor DO LAB BLOOD ORDERABLES Final R esult [facility] [address] [place] [phone] * CBC auto differential (01/18/2025 10:46 AM EDT) White Blood Count 8.0 4.8 - 10.8 X10*3/uL [facility] Red Blood Count 4.27 4.20 - 5.50 X10*6/uL [facility] Hemoglobin 12.3 12.0 - 16.0 g/dl [facility] Hematocrit 38.2 37.0 - 47.0 % [facility] Mean Corpuscular Volume 89.5 80.0 - 98.0 fL [facility] Mean Corpuscular Hemoglobin 28.8 27.0 - 33.0 pg [facility] Mean Corpuscular HGB Conc 32.2 31.0 - 35.0 g/dl [facility] Red Cell Distribution Width 13.1 11.0 - 16.0 % [facility] Platelet Count 257 160 - 400 X10*3/uL [facility] Mean Platelet Volume 11.8 9.4 - 12.3 fL [facility] Neutrophils Percent Auto 69.9 45 - 73 % [facility] Imm Gran Pct Auto 0.1 0.0 - 0.4 % [facility] Lymphocytes Percent Auto 22.8 20 - 40 % [facility] Monocytes Percent Auto 4.8 2 - 11 % [facility] Eosinophils Percent Auto 2.0 0 - 4 % [facility] Basophils Percent Auto 0.4 0 - 2 % [facility] NRBC Pct Auto 0.0 0.0 - 0.2 /100WBC [facility] Neutrophils Absolute Auto 5.6 2.0 - 8.3 x10*3/uL [facility] Imm Gran Abs Auto 0.01 0.00 - 0.03 X10*3/uL [facility] Lymphocytes Absolute Auto 1.8 1.2 - 4.9 X10*3/uL [facility] Monocytes Absolute Auto 0.4 0.1 - 1.2 X10*3/uL [facility] Eosinophils Absolute Auto 0.2 0.0 - 0.4 X10*3/uL [facility] Basophils Absolute Auto 0.0 0.0 - 0.2 X10*3/uL [facility] NRBC Abs Auto 0.000 0.0 - 0.012 X10*3/uL [facility] Blood Venous blood specimen / Unknown 01/18/2025 10:46 AM EDT 01/18/2025 1:21 PM EDT [facility] LAB BLOOD ORDERABLES Final R esult Performing Organization Address City/[facility]/ZIP Co de Phone Number [facility] [address] [place] [phone] * Hepatitis C Antibody with Reflex to HCV, RNA, Quantitative, Real-Time PCR (01/18/2025 10:46 AM EDT) Hepatitis C Antibody Nonreactive Nonreactive [facility] Comment:Antibodies to HCV no t detected; does not exclude early acuteHCV infection. Blood Venous blood specimen / Unknown 01/18/2025 10:46 AM EDT 01/18/2025 1:21 PM EDT [facility] LAB BLOOD ORDERABLES Final R esult Performing Organization Address City/[facility] Co de Phone Number [facility] [address] [place] [phone] * Iron And Total Iron Binding Capacity (01/18/2025 10:46 AM EDT) Iron 56 30 - 160 mcg/dL [facility] Total Iron Binding Capacity 342 228 - 428 mcg/dL [facility] Percent Iron Saturation 16 15 - 50 % [facility] Unsaturated Iron Binding 286 ug/dL [facility] Blood Venous blood specimen / Unknown 01/18/2025 10:46 AM EDT 01/18/2025 1:21 PM EDT us Angela Taylor DO LAB BLOOD ORDERABLES Final R esult Performing Organization Address City/[facility]/ZIP Co de Phone Number [facility] [address] [place] [phone] * Hepatitis A Antibody, Total (01/18/2025 10:46 AM EDT) Hepatitis A Antibody IgG Nonreactive Nonreactive [facility] Blood Venous blood specimen / Unknown 01/18/2025 10:46 AM EDT 01/18/2025 1:21 PM EDT us Angela Taylor DO LAB BLOOD ORDERABLES Final R esult Performing Organization Address [facility] Co de Phone Number [facility] [address] [place] [phone] * Hepatitis B surface antigen, EIA (01/18/2025 10:46 AM EDT) Hepatitis B Surface Ag Negative Negative [facility] Blood Venous blood specimen / Unknown 01/18/2025 10:46 AM EDT 01/18/2025 1:21 PM EDT Angela Taylor DO LAB BLOOD ORDERABLES Final R esult Performing Organization Address City/[facility] Co de Phone Number [facility] [address] [place] [phone] * Hepatitis B Core Antibody, Total (01/18/2025 10:46 AM EDT) Hepatitis B Core Antibody Nonreactive Nonreactive [facility] Blood Venous blood specimen / Unknown 01/18/2025 10:46 AM EDT 01/18/2025 1:21 PM EDT Angela Taylor DO LAB BLOOD ORDERABLES Final R esult Performing Organization Address [facility] Co de Phone Number [facility] [address] [place] [phone] * RPR (Monitor) with Reflex to??Titer (01/18/2025 10:46 AM EDT) RPR (Monitor) w/Refl Titer NON-REACTI VE NON-REACT SANDRA [facility] Comment:THIS TEST WAS PERFOR MED AT:[employer] [place] [phone] BUSTOS MD Rapid Plasma Reagin Ab Titer TNP [facility] Blood Venous blood specimen / Unknown 01/18/2025 10:46 AM EDT 01/18/2025 1:21 PM EDT Angela Taylor DO LAB BLOOD ORDERABLES Final R esult Performing Organization Address [facility] Co de Phone Number [facility] [address] [place] [phone] * HIV-1/2 Antigen and Antibodies, Fourth Generation, with Reflexes (01/18/2025 10:46 AM EDT) HIV AB/AG Nonreactive Nonreactive [facility] Comment:HIV-1 p24 Ag and/or HIV-1/HIV-2 Ab not detected.A test result that is nonreactive does not exclude thepossibility of exposure to or infection with HIV-1 and/orHIV-2. Nonreactive results in this assay for individualswith prior exposure to HIV-1 and/or HIV-2 may be due toantigen and antibody levels that are below the limit ofdetection of this assay.The [employer] HIV Ag/Ab Combo assay result andsupplemental assay results should be interpreted inconjunction with the patient's clinical presentation,history and other laboratory results. If the results areinconsistent with clinical evidence, additional testing issuggested to confirm the result. Blood Venous blood specimen / Unknown 01/18/2025 10:46 AM EDT 01/18/2025 1:21 PM EDT Angela Taylor DO LAB BLOOD ORDERABLES Final R esult Performing Organization Address [facility] Co de Phone Number [facility] [address] [place] [phone] * Hepatitis B Surface Antibody, Qualitative (01/18/2025 10:46 AM EDT) Pathologist [facility] ~Hepatitis B Surface Antibody GRAYZONE Nonreactive [facility] Comment:GRAYZONE: 8.00 mIU/m L TO 11.99 mIU/mLTHE IMMUNE STATUS OF THE INDIVIDUAL SHOULD BE FURTHERASSESSED BY CONSIDERING OTHER FACTORS, SUCH CLINICALSTATUS, FOLLOW-UP TESTING, ASSOCIATED RISK FACTORS, AND THEUSE OF ADDITIONAL DIAGNOSTIC INFORMATION. Blood Venous blood specimen / Unknown 01/18/2025 10:46 AM EDT 01/18/2025 1:21 PM EDT Angela Taylor DO LAB BLOOD ORDERABLES Final R esult Performing Organization Address [facility] de Phone Number [facility] [address] [place] [phone] * Varicella zoster antibody, IgG (01/18/2025 10:46 AM EDT) [facility] Varicella IgG Antibody 10.40 S/CO [facility] Comment:Signal to Cut-off S/ CO Interpretation [...] Antibody Immunity Screen, ACIF.THIS TEST WAS PERFORMED AT:[employer] [place] [phone] BUSTOS MD Blood Venous blood specimen / Unknown 01/18/2025 10:46 AM EDT 01/18/2025 1:21 PM EDT Angela Taylor DO LAB BLOOD ORDERABLES Final R esult Performing Organization Address [facility]/ZIP Co de Phone Number [facility] [address] [place] [phone] * TSH (01/18/2025 10:46 AM EDT) Thyroid Stimulating Hormone 1.17 0.32 - 4.0 uIU/mL [facility] Comment:TSH 3rd Generation ( [employer]) Blood Venous blood specimen / Unknown 01/18/2025 10:46 AM EDT 01/18/2025 1:21 PM EDT Angela Taylor DO LAB BLOOD ORDERABLES Final R esult Performing Organization Address [facility] Co de Phone Number [facility] [address] [place] [phone] * T4, Free (01/18/2025 10:46 AM EDT) Free T4 (Free Thyroxine) 0.84 0.71 - 1.85 ng/dL [facility] Blood Venous blood specimen / Unknown 01/18/2025 10:46 AM EDT 01/18/2025 1:21 PM EDT Angela Claudia DO LAB BLOOD ORDERABLES Final R esult Performing Organization Address [facility] Co de Phone Number [facility] [address] [place] [phone] * Hemoglobin A1c (01/18/2025 10:46 AM EDT) Hemoglobin A1c 5.3 <6.0 % [facility] Comment:Hemoglobin A1C Refer ence Range Adults: 4.8 - 6.0 % Non diabetic: < 6.0 % Goal: < 7.0 %Additional Action Suggested: > 8.0 %Note: Hemoglobin A1c results are invalid for patients with abnormal amounts of HbF. Blood transfusions may impact the HbA1c concentration in the patient sample. Estimated Average Glucose 105 mg/dL [facility] Comment:eAG = Estimated ave rage glucose which is %A1C expressed asaverage glucose, using the formula of the W1R-EywdqhuJhloepx Glucose study (ADAG), Diabetes Care, Vol.31,#8,2007 Blood Venous blood specimen / Unknown 01/18/2025 10:46 AM EDT 01/18/2025 1:21 PM EDT Angela Taylor DO LAB BLOOD ORDERABLES Final R esult Performing Organization Address City/[facility]/ZIP Co de Phone Number [facility] [address] [place] [phone] * Ferritin (01/18/2025 10:46 AM EDT) Pathologist [facility] Ferritin 25 10 - 122 ng/mL [facility] Blood Venous blood specimen / Unknown 01/18/2025 10:46 AM EDT 01/18/2025 1:21 PM EDT Angela Gardinervt DO LAB BLOOD ORDERABLES Final R esult Performing Organization Address City/[facility]/ZIP Co de Phone Number [facility] [address] [place] [phone] * Hepatic Function Panel (01/18/2025 10:46 AM EDT) Pathologist [facility] Bilirubin, Total 0.6 0.0 - 1.0 mg/dL [facility] Bilirubin, Direct 0.2 0.0 - 0.5 mg/dL [facility] Aspartate Amino Transferase 29 5 - 31 U/L [facility] Alanine Aminotransferase 17 0 - 31 U/L [facility] Total Protein 7.3 6.5 - 8.0 g/dL [facility] Albumin Level 4.3 3.5 - 5.0 g/dL [facility] Alkaline Phosphatase 72 39 - 117 U/L [facility] Blood Venous blood specimen / Unknown 01/18/2025 10:46 AM EDT 01/18/2025 1:21 PM EDT us Angela Taylor DO LAB BLOOD ORDERABLES Final R esult [facility] [address] [place] [phone] * Lipid Panel, Standard (01/18/2025 10:46 AM EDT) Triglycerides 37 <150 mg/dL [facility] Comment:Desirable Triglyceri de: less than 150 mg/dLBorderline High Triglyceride 150-199 mg/dLHigh Triglyceride: 200-499 mg/dLVery High Triglyceride: greater than or equal to 5OO mg/dL Cholesterol 153 <200 mg/dL [facility] Comment:Desirable Cholestero l: less than 200 mg/dLBorderline High Cholesterol: 200-239 mg/dLHigh Cholesterol: greater than 239 mg/dL LDL Cholesterol Calculated 98 <100 mg/dL [facility] Comment:Desirable LDL: less than 100 mg/dLNear Optimal/Above Optimal LDL: 110- 129 mg/dLBorderline High LDL: 130-159 mg/dLHigh LDL: 160-189 mg/dLVery High LDL: greater than or equal to 190 mg/dL HDL Cholesterol 48 >40 mg/dL [facility] Comment:Desirable HDL: great er than 40 mg/dL Note: This HDL assay may give artificially low results in patients with liver disease. Blood Venous blood specimen / Unknown 01/18/2025 10:46 AM EDT 01/18/2025 1:21 PM EDT us Angela Taylor DO LAB BLOOD ORDERABLES Final R esult Performing Organization Address [facility] Co de Phone Number [facility] [address] [place] [phone] * (ABNORMAL) Basic Metabolic Panel (01/18/2025 10:46 AM EDT) Sodium 140 135 - 145 mmol/L [facility] Potassium 3.4 3.3 - 5.1 mmol/L [facility] Chloride 110(H) 96 - 108 mmol/L [facility] Carbon Dioxide 24 22 - 29 mmol/L [facility] Anion Gap 9(L) 12 - 20 [facility] Urea Nitrogen (BUN) 12 9 - 16 mg/dL [facility] Creatinine, Serum 0.77 0.5 - 1.4 mg/dL [facility] Estimated Glomerular Filt Rate >60 [facility] Comment:Chronic Kidney Disea se: Estimated GFR < 60 mL/min/1.92i8Nywlis Kidney Disease: Estimated GFR < 15 mL/min/1.73m2 Glucose 75 60 - 115 mg/dL [facility] Calcium 8.8 8.4 - 10.2 mg/dL [facility] Blood Venous blood specimen / Unknown 01/18/2025 10:46 AM EDT 01/18/2025 1:21 PM EDT Angela Taylor DO LAB BLOOD ORDERABLES Final R esult Performing Organization Address City/[facility] Co de Phone Number [facility] [address] [place] [phone] * Pap Smear (03/02/2023 3:26 PM EDT) 03/02/2023 3:26 PM EDT 03/08/2023 8:30 AM EDT Narrative [facility] - 03/28/2023 11:43 AM EDT ----- ------- Name: Anthony DaigleSheela Canales ? Age/Sex: / ? : 2000 Unit#: [id number] ?? Attend Dr: Erika Quan CNM ?Re03/02/23 ?Status: DEP REF ? Location: HO.LNP ?Disch: ? ----- ------- SPEC : [id number] ? RECD: 03/08/23 ? STATUS: ??SOUT ? REQ NUM: [id number] ? SYED: 03/02/23-1526 ? SUBM DR: Erika Quan CNM ? ENTERED: ??03/08/23-1019 ?SP TYPE: Pap Smr ?OTHR DR: Angela Taylor DO ? ORDERED: ??Pap Smear ? Interpretation ?? Satisfactory for evaluation. ?? Mild inflammation. ?? Negative for intraepithelial lesion or malignancy. ?Clinical Information LMP: 12/12/22 Previous PAP test: Unknown date/findings ? Material Received ?? ThinPrep-Cervical Copies To: ?? Angela Taylor DO ?? [address] ?? [place] [id number] ? Erika Quan CNM ?? [address] [place] [address] Dr. Hernandes [facility] ?? [place] [id number] ?? [phone] ----- ------- Signed (signature on file) ALISON Goddard (ASCP) 03/28/23 1143 ? ----- ------- ? END OF REPORT ? us [facility] External Provider LAB CYT OLOGY ORDERABLES Final Result [facility] [address], [place] [phone] from Last 3 Months or Most Recently Relevant to Health Maintenance Insurance [place], [place] [facility] * Guarantor: Sheela [place] Account Type Relation to Patient Date of Phone Billing Address Personal/Family Self Rg [place], [place] * Guarantor: Sheela [place] Account Type Relation to Patient Date of Phone Billing Address Personal/Family Self [place] Care Teams Data Engineer Relationship Specialty Start Date End Date Angela Taylor DO [address] [place] [address] [place] [address] PCP - General Family Medicine 01/18/25
--- OUTSIDE RECORDS SUMMARY | 2025-02-12 18:48 | XMS_ITS | Clinical Summary ---
Author Organization [facility] ity Address [address] [place] [id number] Care Team Providers Care Nuclear Reactor Operator Name Role Phone Angela Taylor DO Primary Care Provider [phone]- [phone] Surgical History Surgery Date Site/Laterality Comments OTHER [...] age to complete this topic Care Teams Nuclear Reactor Operator Relationship Specialty Start Date End Date Angela Taylor DO [address] [place] [address] PCP - General Internal Medicine 05/11/18
== END 2025-02-12 18:01 | disposition home or self-care (01) ==
LOC: HO.HHCLNP 18:00
PROVIDERS: Visit Provider Advanced Practice Midwife
DX: R30.0 Dysuria (principal)
CPT/HCPCS: 87086

== ENCOUNTER 2025-07-18 18:14 | Outpatient (REF) | payer MEDICAID, SELFPAY ==
--- OUTSIDE RECORDS SUMMARY | 2025-07-18 13:00 | XMS_ITS | Encounter Summary ---
Author Organization [employer] Address [address] [facility] 7t [place] [address] Care Team Providers Care Criminal Analyst Name Role Phone Angela Taylor Primary Care Provider [phone] Encounter Details Date Type Department Care Team ([facility] st Contact Info) Description 07/18/2025 1:00 PM EDT Office Visit [facility] MEDICINE [address] [place], [place] [phone] Nicki Sanchez MD [address] [place], [place] [phone] UTI symptoms; Vaginal discharge Social History Tobacco Use Types Packs/Day Years [...] Sign Reading Time Taken Comments Blood Pressure 118/78 07/18/2025 1:13 PM EDT Pulse 68 07/18/2025 1:13 PM EDT Temperature 36.3 C (97.4 F) 07/18/2025 1:13 PM EDT Respiratory Rate 19 07/18/2025 1:13 PM EDT Oxygen Saturation 98% 07/18/2025 1:13 PM EDT Inhaled Oxygen Concentration - - Weight 61 kg (134 lb 6.4 oz) 07/18/2025 1:13 PM EDT Height 167.6 cm (5' 6 ) 07/18/2025 1:13 PM EDT Body Mass Index 21.69 07/18/2025 1:13 PM EDT documented in this encounter Progress Notes * Nicki Barker MD - 07/18/2025 1:00 PM EDT SUBJECTIVE: Sheela Daigle is a 25 y.o. year old female who presents for acute visit . Acute Concerns: Patient reports 3 days of having lower abdominal pain, pressure, dysuria, urinary frequency and blood in the urine, she denies fever or back pain. Patient also reports she has been having on and off vaginal discharge Social History Social History Narrative Not on file Problem List[1] Family History[2] Review of Systems Constitutional: Negative. HENT: Negative. Respiratory: Negative. Cardiovascular: Negative. Gastrointestinal: Positive for abdominal distention and abdominal pain. Negative for anal bleeding,blood in stool, constipation, diarrhea, nausea, rectal pain and vomiting. Genitourinary: Positive for difficulty urinating, dysuria, frequency, hematuria, pelvic pain, urgency and vaginal discharge. Negative for decreased urine volume, dyspareunia, enuresis, flank pain, genital sores, menstrual problem, vaginal bleeding and vaginal pain. OBJECTIVE: Vitals: 07/18/25 1313 BP: 118/78 BP Location: Left arm Patient Position: Sitting BP Cuff Size: Adult Pulse: 68 Resp: 19 Temp: 97.4 ??F (36.3 ??C) TempSrc: Temporal SpO2: 98% Weight: 134 lb 6.4 oz (61 kg) Height: 5' 6 (1.676 m) Physical Exam Constitutional: Appearance: Normal appearance. Cardiovascular: Rate and Rhythm: Normal rate and regular rhythm. Pulmonary: Effort: Pulmonary effort is normal. Breath sounds: Normal breath sounds. Abdominal: General: Abdomen is flat. Palpations: Abdomen is soft. Tenderness: There is abdominal tenderness in the suprapubic area. Musculoskeletal: Right lower leg: No edema. Left lower leg: No edema. Neurological: Mental Status: She is alert. Follow Up: No follow-ups on file. Medications Ordered Prior to Encounter[3] Problem List Items Addressed This Visit UTI symptoms Drink plenty of fluids and rest Do not hold urine UA and culture done patient will be contacted with results I will treat her empirically with Macrobid Relevant Medications nitrofurantoin, macrocrystal-monohydrate, (Macrobid) 100 MG capsule Other Relevant Orders POCT Urinalysis Culture, Urine, Routine Vaginal discharge BV panel ordered she will be contacted with results Relevant Orders Bacterial Vaginosis Panel [1] Patient Active Problem List Diagnosis Anemia BMI 21.0-21.9, adult Anxiety Metrorrhagia UTI symptoms Vaginal discharge [2] Family History Problem Relation Name Age of Onset Sleep apnea Mother Other (Pre-diabetes) Mother Anxiety disorder Mother No Known Problems Father Diabetes Maternal Grandmother Diabetes Maternal Grandfather Diabetes Paternal Grandmother Diabetes Paternal Grandfather [3] Current Outpatient Medications on File Prior to Visit Medication Sig Dispense Refill acetaminophen (Tylenol Extra Strength) 500 MG tablet Take 1 tablet (500 mg) by mouth every 6 (six) hours if needed for mild pain, headaches or fever. 40 tablet 1 baclofen (Lioresal) 10 MG tablet Take 1 tablet (10 mg) by mouth if needed in the morning, at noon, and at bedtime for muscle spasms. 60 tablet 1 Diclofenac Sodium 1 % gel Apply 2 g topically if needed in the morning, at noon, in the evening, and at bedtime (pain). 150 g 3 etonogestrel-eluting (Nexplanon) 68 mg contraceptive implant Inject 68 mg under the skin. fluticasone (Flonase Allergy Relief) 50 MCG/ACT nasal spray Administer 2 sprays into each nostril Once per day. 16 g 3 loratadine (Claritin) 10 MG tablet Take 1 tablet (10 mg) by mouth Once per day. 90 tablet 1 naproxen (Naprosyn) 500 MG tablet Take 1 tablet (500 mg) by mouth if needed in the morning and at bedtime for mild pain or moderate pain. 40 tablet 1 No current facility-administered medications on file prior to visit. documented in this encounter Miscellaneous Notes * Assessment & Plan Note - Nicki Barker MD - 07/18/2025 1:41 PM EDT Associated Problem(s): Vaginal discharge BV panel ordered she will be contacted with results * Assessment & Plan Note - Nicki Barker MD - 07/18/2025 1:41 PM EDT Associated Problem(s): UTI symptoms Drink plenty of fluids and rest Do not hold urine UA and culture done patient will be contacted with results I will treat her empirically with Macrobid documented in this encounter Plan of Treatment Scheduled Orders Name Type Priority Associated Diagnoses Orde r Schedule Bacterial Vaginosis Panel Microbiology Routine Vaginal discharge Ordered: 07/18/2025 Culture, Urine, Routine Microbiology Routine UTI symptoms Expected: 07/18/2025 (Approximate), Expires: 07/18/2026 documented as of this encounter Procedures Procedure Name Priority Date/Time Associated Diagnosis Comments POCT URINALYSIS DIPSTICK Routine 07/18/2025 1:46 PM EDT UTI symptoms documented in this encounter Results * (ABNORMAL) POCT Urinalysis (07/18/2025 1:46 PM EDT) Color, UA Yellow Clarity, UA Clear Glucose, UA Negative Bilirubin, UA Negative Ketones, UA Negative Spec Grav, UA 1.015 Blood, UA Positive(A) Negative, None Detected pH, UA 6.5 Protein, UA Negative Urobilinogen, UA 0.2 Leukocytes, UA Moderate(A) Negative, Rare, Trace Nitrite, UA Negative Negative, None Detected Appearance, UA clear QC Media Lot # [id number] Lot# Expiration Date 63 Urine 07/18/2025 1:46 PM EDT Nicki Barker MD POINT OF CARE TEST EN TER/EDIT ORDERABLES Final Result documented in this encounter Visit Diagnoses Diagnosis UTI symptoms Vaginal discharge Leukorrhea, not specified as infective documented in this encounter Additional Health Concerns Assessment Noted Time PHQ-9 Depression Total Score: 7 01/19/20 10:46 AM EDT documented as of this encounter Care Teams Criminal Analyst Relationship Specialty Start Date End Date Angela Taylor DO [address] [place] [phone] PCP - General Family Medicine 01/18/25 documented as of this encounter
--- OUTSIDE RECORDS SUMMARY | 2025-07-18 18:16 | XMS_ITS | Encounter Summary ---
Author Organization [email or web address] [facility] Address [address] [facility] 7t [place] [address] Care Team Providers Care Footwear Stitcher Name Role Phone Angela Taylor DO Primary Care Provider [phone] Reason for Visit * Reason Onset Date Comments Nurse Triage 07/18/2025 Encounter Details Date Type Department Care Team ([facility] st Contact Info) Description 07/18/2025 Telephone [facility] MEDICINE [address] [place], [place] [phone] Angela Taylor DO [address] [place], [place] [phone] Nurse Triage Social History Tobacco Use Types [...] Miscellaneous Notes * Telephone Encounter - Mariam Alozno RN - 07/18/2025 10:09 AM EDT No conversion worker needed as this newspaper writer speaks Thai. Call returned to Sheela Daigle to triage below at [phone]. Reports having pain with urination x 3 days. Pt states having some blood in urine. Pt has light urine due to increasing water intake. No flank pain. Mild pelvic pain. Pt denies any abnormal vaginal discharge or fever. Pt is having urgency as well. Pt advised of disposition, agrees to sick onsite today with team provider for exam. Reviewed home care advise, ER precautions and reasons to call back. Protocol Used: Urination Pain - Female (Adult) Protocol-Based Disposition: See in Office or Video Visit Today Future Appointments Date Time Provider Department Center 07/18/2025 1:00 PM Nicki Barker MD MEDICINE [facility] Insurance verified as active per Real Time Eligibility in [facility]. Video visit offer not recorded Positive Triage Question: * Painful urination AND EITHER frequency or urgency * All higher-acuity triage questions were negative Care Advice Discussed: * Reassurance and Education - Possible Urine Infection * Drink Extra Fluids * Reasons To Call Back - Fever or back pain occurs - You become worse * Telephone Encounter - Mechelle Patino - 07/18/2025 10:03 AM EDT Symptom: Urination Pain Outcome: Schedule an urgent appointment (within 1 hour) or talk to a nurse or provider soon Reason: Blood in urine The caller accepted this outcome. Contact pt at [phone] Need conversion worker documented in this encounter Plan of Treatment Not on file documented as of this encounter Visit Diagnoses Not on filedocumented in this encounter Additional Health Concerns Assessment Noted Time PHQ-9 Depression Total Score: 7 01/19/20 10:46 AM EDT documented as of this encounter Care Teams Footwear Stitcher Relationship Specialty Start Date End Date Angela Taylor DO [address] [place] [id number] PCP - General Family Medicine 01/18/25 documented as of this encounter
--- OUTSIDE RECORDS SUMMARY | 2025-07-18 18:16 | XMS_ITS | Clinical Summary ---
Author Organization [facility] Address [address] [facility] [address] [place] [address] Phone Care Team Providers Care Compounder Helper Name Role Phone Angela Taylor DO Primary Care Provider Allergies Active Allergy Reactions Criticality Noted Date Comments Fish Derived Anaphylaxis High 12/23/2022 Shrimp Anaphylaxis High 12/23/2022 Medications ondansetron (ZOFRAN-ODT) 4 MG disintegrating tablet (To-Go) Take 1-2 tablet(s) by mouth every 8 hours as needed for nausea/vomi ting 6 tablet 3 Active ibuprofen (MOTRIN) 600 mg tablet (To-Go) Take 1 tablet by mouth every 6 hours as needed for pain. 12 tablet 3 Active Social History Tobacco Use Types Packs/Day Years Used Date Smoking Tobacco: Never Smokeless Tobacco: Never Tobacco Cessation:Counseling Given: Not Answered Alcohol Use Standard Drinks/Week Comments Not Currently 0 (1 standard drink = 0.6 oz pur e alcohol) Education Answer Date Recorded Are you interested in more education? Not on tyler e 02/12/2023 Are you concerned about learning? Not on file 02/12/2023 No 02/12/2023 No 02/12/2023 Digital Access Answer Date Recorded No 03/15/2023 No 03/15/2023 Reliable internet access at home? Not on file 03/15/2023 Device with a working camera? Not on file Intimate Partner Violence Answer Date R ecorded Are you denied basic needs s uch as food, clothing, or medical care? No 12/23/2022 In the past 12 months have y ou been in a relationship with a person who hurts, threatens, or tries to control you? No 12/23/2022 Are you denied basic needs s uch as food, clothing, or medical care? No 12/23/2022 In the past 12 months have y ou been in a relationship with a person who hurts, threatens, or tries to control you? No 12/23/2022 Comments Unknown Sex and Gender Information Value Date Recorded Sex Assigned at Female 12/23/2022 8:27 PM EST Legal Sex Female 8:18 PM EST Gender Identity Female 12/23/2022 8:27 PM EST Sexual Orientation Not on file Last Filed Vital Signs Vital Sign Reading Time Taken Comments Blood Pressure 116/78 01/02/2023 11:29 PM EDT Pulse 67 01/02/2023 11:29 PM EDT Temperature 36.6 C (97.8 F) 01/02/2023 11:29 PM EDT Respiratory Rate 18 01/02/2023 11:29 PM EDT Oxygen Saturation 100% 01/02/2023 11:29 PM EDT Inhaled Oxygen Concentration - - Weight 59.9 kg (132 lb) 01/02/2023 8:43 PM EDT Height 167.6 cm (5' 6 ) 01/02/2023 8:43 PM EDT Body Mass Index 21.31 01/02/2023 8:43 PM EDT Plan of Treatment Health Maintenance Due Date Last Done Comments DEPRESSION SCREENING 2011 HPV VACCINES (3 - 3-dose series) 11/27/2016 08/23/2016, 05/27/2016 HEPATITIS C SCREENING 2017 HIV ONE-TIME SCREENING (18-6 5 YEARS) 2017 PAP SMEAR 2020 SMOKING STATUS SCREENING (On ce After 26 Yrs) 2025 INFLUENZA VACCINE (#1) 2025 COVID-19 VACCINE (2023-2 5 season) 2025 Adult Td,Tdap Booster 05/27/2026 05/27/2016 MENINGOCOCCAL VACCINES (ACWY) Completed 05/27/2016 HEPATITIS A VACCINES Aged Out No long er eligible based on patient's age to complete this topic HIB VACCINES Aged Out No longer eligi ble based on patient's age to complete this topic MENINGOCOCCAL VACCINES (B) Aged Out N o longer eligible based on patient's age to complete this topic PNEUMOCOCCAL VACCINES (0-49 years) Aged Out No longer eligible b ased on patient's age to complete this topic Medical Devices Not on file Insurance C3 ACO C3 ACO C3 ACO C3 ACO C3 ACO C3 ACO Care Teams Compounder Helper Relationship Specialty Start Date End Date Angela Taylor DO [address] [place] [address] PCP - General Family Medicine 12/23/22 Additional Source Comments The information contained in this document represents components of the legal health record. It is not the complete legal health record.[facility]
--- OUTSIDE RECORDS SUMMARY | 2025-07-18 18:16 | XMS_ITS | Clinical Summary ---
Author Organization [employer] Address [address] [facility] [address] [place] [address] Care Team Providers Care Free Lance Artist Name Role Phone AníblaAngela barrios Primary Care Provider Allergies Active Allergy Reactions Criticality Noted Date Comments Fish-Derived Products Anaphylaxis High 12/23/2022 Shellfish Allergy 05/30/2025 Shrimp (Diagnostic) 05/30/2025 Shrimp Extract Anaphylaxis High 12/23/2022 Medications * This document contains information received from the source organization and may not represent a complete record from that organization. etonogestrel-elut ing (Nexplanon) 68 mg contraceptive implant Inject 68 mg under the skin. 3 Active loratadine (Claritin) 10 MG tablet Take 1 tablet (10 mg) by mouth Once per day. 90 tablet 1 5 05/30/20 26 Active fluticasone (Flonase Allergy Relief) 50 MCG/ACT nasal spray Administer 2 sprays into each nostril Once per day. 16 g 3 5 Active naproxen (Naprosyn) 500 MG tablet Take 1 tablet (500 mg) by mouth if needed in the morning and at bedtime for mild pain or moderate pain. 40 tablet 1 5 Active acetaminophen (Tylenol Extra Strength) 500 MG tablet Take 1 tablet (500 mg) by mouth every 6 (six) hours if needed for mild pain, headaches or fever. 40 tablet 1 5 05/30/20 26 Active baclofen (Lioresal) 10 MG tablet Take 1 tablet (10 mg) by mouth if needed in the morning, at noon, and at bedtime for muscle spasms. 60 tablet 1 5 07/29/20 25 Active Diclofenac Sodium 1 % gel Apply 2 g topically if needed in the morning, at noon, in the evening, and at bedtime (pain). 150 g 3 5 Active nitrofurantoin, macrocrystal-mono hydrate, (Macrobid) 100 MG capsuleIndication s:UTI symptoms Take 1 capsule (100 mg) by mouth 2 times daily for 7 days. 14 capsule 5 07/25/20 25 Active Active Problems Patient Care Coordination No te Formatting of this note migh t be different from the original. C3/CM Vangie Azar RN Problem Noted Date Diagnosed Date UTI symptoms 07/18/2025 Assessment & Plan (07/18/2025 1:41 PM EDT): Drink plenty of fluids and rest Do not hold urine UA and culture done patient will be contacted with results I will treat her empirically with Macrobid Vaginal discharge 07/18/2025 Assessment & Plan (07/18/2025 1:41 PM EDT): BV panel ordered she will be contacted with results Metrorrhagia 01/30/2025 Assessment & Plan (01/30/2025 4:47 PM EDT): I will order TSH and BV panel, patient will be contacted with results I will refer patient for f/u Anemia 01/18/2025 BMI 21.0-21.9, adult 01/18/2025 Anxiety 01/18/2025 Resolved Problems Problem Noted Date Diagnosed Date Resolved Date Recurrent UTI 07/18/2025 07/18/2025 Rash 01/30/2025 05/30/2025 Acute hemorrhagic cystitis 06/03/2017 0 01/18/2025 Encounters Date Type Department Care Team Description 07/18/2025 1:00 PM EDT Office Visit [facility] [address] [place] [phone] Nicki Sanchez MD UTI symptoms; Vaginal discharge 07/18/2025 Travel 07/18/2025 Telephone [facility] [address] [place] [phone] Angela Taylor DO Nurse Triage 05/30/2025 11:20 AM EDT Office Visit [facility] [address] [place] [address] Angela Taylor DO COVID-19 (Primary Dx); Acute pain of right shoulder 05/30/2025 Travel 05/30/2025 Telephone [facility] [address] [place] [address] Angela Taylor DO Nurse Triage 04/22/2025 Telephone [facility] [address] [place] [address] Angela Taylor DO from Last 3 Months Immunizations Immunization Administration Dates Next Due DTaP 05/23/2003,1999,1999 ,1999 [...] Q2 Not on file 01/10/2025 Comments No Intention Date Recorded No desire to become (finding) 0 02/12/2025 Sex and Gender Information Value Date Recorded [...] Mass Index 21.69 07/18/2025 1:13 PM EDT Plan of Treatment Health Maintenance Due Date Last Done Comments HPV Vaccines (3 - 3-dose series) 11/27/2016 08/23/2016, 05/27/2016 COVID-19 Vaccine ( season) 2025 Influenza Vaccine (#1) 2025 Alcohol/Substance Use Screening 01/18/2026 01/18/2025 Depression Screening 01/18/2026 01/18/2025, 01/19/20 Disability Screening 01/18/2026 01/18/2025 SDOH Screening 01/18/2026 01/18/2025 Family Planning (PISQ) 02/12/2026 02/12/2025 Pap Smear 03/02/2026 03/02/2023 DTaP/Tdap/Td Vaccines (6 - Td or Tdap) 05/27/2026 05/27/2016, 05/23/2003, 1999, Additional history exists Tobacco Screening 07/18/2026 07/18/2025 Zoster Vaccines (1 of 2) 2049 RSV [...] Years) and At-Risk Patients (6 to 49) Years Aged Out No longer eligible based on [...] Routine 07/18/2025 1:46 PM EDT UTI symptoms POCT COVID-19 AG WILKINSON ID NOW Routine 05/30/2025 11:17 AM EDT COVID-19 POCT INFLUENZA A (ID NOW RAPID MOLECULAR) Routine 05/30/2025 11:16 AM EDT COVID-19 POCT INFLUENZA B (ID NOW RAPID MOLECULAR) Routine 05/30/2025 11:15 AM EDT COVID-19 HEPATITIS C AB W/REFL TO HCV RNA, [...] Recently Relevant to Health Maintenance Results * (ABNORMAL) POCT Urinalysis (07/18/2025 1:46 [...] TER/EDIT ORDERABLES Final Result * (ABNORMAL) POCT Rapid Covid-19 WILKINSON ID NOW (05/30/2025 11:17 AM EDT) Coronavirus Antigen PCR Positive (A) Negative, Indeterminate, None Detected, Invalid, Specimen unsatisfactory for evaluation, Weakly Positive, 2+ QC Media Lot # [id number] Lot# Expiration Date ,02 6 Swab 05/30/2025 11:1 7 AM EDT Angela Spanglerjaswantbarb DO POINT OF CARE TEST ENTER/ROLANDO T ORDERABLES Final Result * POCT Rapid Influenza A WILKINSNO ID NOW (05/30/2025 11:16 AM EDT) [facility] Influenza A Negative Negative, Indeterminate [facility] QC Media Lot # [id number] [facility] Lot# Expiration Date [facility] Swab 05/30/2025 11:1 6 AM EDT Angela Abdifatahbarb DO POINT OF CARE TEST ENTER/ROLANDO T ORDERABLES Final Result Performing Organization Address City/[facility]/ZIP Co de Phone Number [facility] [address] [place] [phone] * POCT Rapid Influenza B WILKINSON ID NOW (05/30/2025 11:15 AM EDT) [facility] Influenza B Negative Negative, Indeterminate [facility] QC Media Lot # [id number] [facility] Lot# Expiration Date [facility] Swab 05/30/2025 11:1 5 AM EDT Angela Taylor DO POINT OF CARE TEST ENTER/ROLANDO T ORDERABLES Final Result Performing Organization Address City/[facility]/ZIP Co de Phone Number [facility] [address] [place] [phone] * Hepatitis C Antibody with Reflex to HCV, RNA, Quantitative, Real-Time PCR (01/18/2025 10:46 AM EDT) Hepatitis C Antibody Nonreactive Nonreactive [facility] Comment:Antibodies to HCV no t detected; does not exclude early acuteHCV infection. Blood Venous blood specimen / Unknown 01/18/2025 10:46 AM EDT 01/18/2025 1:21 PM EDT Angela Taylor LAB BLOOD ORDERABLES Final R esult Performing Organization Address [facility] Co de Phone Number [facility] [address] [place] [phone] * HIV-1/2 Antigen and Antibodies, Fourth Generation, with Reflexes (01/18/2025 10:46 AM EDT) HIV AB/AG Nonreactive Nonreactive [facility] Comment:HIV-1 p24 Ag and/or HIV-1/HIV-2 Ab not detected.A test result that is nonreactive does not exclude thepossibility of exposure to or infection with HIV-1 and/orHIV-2. Nonreactive results in this assay for individualswith prior exposure to HIV-1 and/or HIV-2 may be due toantigen and antibody levels that are below the limit ofdetection of this assay.The [employer] HIV Ag/Ab Combo assay result andsupplemental assay results should be interpreted inconjunction with the patient's clinical presentation,history and other laboratory results. If the results areinconsistent with clinical evidence, additional testing issuggested to confirm the result. Blood Venous blood specimen / Unknown 01/18/2025 10:46 AM EDT 01/18/2025 1:21 PM EDT Angela Taylor LAB BLOOD ORDERABLES Final R esult Performing Organization Address [facility]/ZIP Co de Phone Number [facility] [address] [place] [phone] * Pap Smear (03/02/2023 3:26 PM EDT) 03/02/2023 3:26 PM EDT 03/08/2023 8:30 AM EDT [facility] - 03/28/2023 11:43 AM EDT ----- ------- Name: Sheela Gilmore Age/Sex: 22/F : 2000 Unit#: [id number] Attend Dr: Erika Quan CNM Re03/02/23 Status: DEP REF Location: [facility] Disch: ----- ------- SPEC : [id number] RECD: 03/08/23 STATUS: BUBBA FIELD NUM: [id number] SYED: 03/02/23-1526 [facility] DR: Erika Quan CNM ENTERED: 03/08/23-1019 SP TYPE: Pap Smr OTHR DR: Angela Taylor DO ORDERED: Pap Smear Interpretation Satisfactory for evaluation. Mild inflammation. Negative for intraepithelial lesion or malignancy. Clinical Information LMP: 12/12/22 Previous PAP test: Unknown date/findings Material Received ThinPrep-Cervical Copies To: Angela Taylor DO [address] [place] [address] [address] ----- ------- Signed (signature on file) ALISON Goddard ([facility]) 03/28/23 1143 ----- ------- END OF REPORT [facility] External Provider [facility] ORDER[facility] Final Result [facility] [address] [place] [phone] from Last 3 Months or Most Recently Relevant to Health Maintenance Insurance [facility] [address] * Guarantor: Sheela Gilmore Account Type Relation to Patient Date of Phone Billing [place] [address] * Guarantor: Sheela Gilmore Account Type Relation to Patient Date of Phone Billing Address Personal[place] [address] Care Teams Free Lance Artist Relationship Specialty Start Date End Date Angela Taylor DO [address] [place] [phone] PCP - General Family Medicine 01/18/25
--- OUTSIDE RECORDS SUMMARY | 2025-07-18 18:16 | XMS_ITS | Clinical Summary ---
Author Organization [facility] Address [id number] [place] [phone] Care Team Providers Care C++ Professor Name Role Phone Angela Taylor DO Primary Care Provider [phone] Surgical History Surgery Date Site/Laterality Comments OTHER [...] 05/27/2016 Cervical Cancer Screening: Pap Smear 2020 Depression Screening 10/17/2024 COVID-19 Vaccine ( season) 2025 Influenza Vaccine (#1) 2025 DTaP,Tdap,and Td Vaccines (6 - Td or Tdap) 05/27/2026 05/27/2016, 05/23/2003, 1999, Additional history exists RSV Immunization Adult Patients (1 - 1-dose 75+ series) 2074 Hepatitis [...] 5 Years) and At-Risk Patients (6 to 49 Years) Aged Out No longer eligible based on patient's age to complete this topic RSV Immunization Patients Under 20 months Aged Out No longer eligible based on patient's age to complete this topic Care Teams C++ Professor Relationship Specialty Start Date End Date Angela Taylor DO [address] [place] [address] PCP - General Internal Medicine 05/11/18
--- OUTSIDE RECORDS SUMMARY | 2025-07-18 18:16 | XMS_ITS | Encounter Summary ---
Author Organization [employer] Address [address] [facility] [address] [place] [address] Care Team Providers Care Band Saw Operator Cake Cutting Name Role Phone Angela Taylor DO Primary Care Provider Encounter Details Date Type Department Care Team (Latest Contact Info) Description 07/18/2025 Travel Social History Tobacco Use Types Packs/Day [...] documented as of this encounter Care Teams Band Saw Operator Cake Cutting Relationship Specialty Start Date End Date Angela Taylor DO [address] [place] [address] PCP - General Family Medicine 01/18/25 documented as of this encounter
[2025-07-19 08:14] LABS: Bacterial Vaginosis PCR NEGATIVE (Negative); Candida Group PCR NOT DETECTED (Not Detect); Candida glab krusei PCR NOT DETECTED (Not Detect); Trichomonas vaginalis PCR NOT DETECTED (Not Detect)
== END 2025-07-18 18:15 | disposition home or self-care (01) ==
LOC: HO.LNP 18:14
PROVIDERS: Visit Provider Internal Medicine
DX: R39.9 Unspecified symptoms and signs involving the genitourinary system (principal); N89.8 Other specified noninflammatory disorders of vagina; Z20.2 Contact with and (suspected) exposure to infections with a predominantly sexual mode of transmission
CPT/HCPCS: 81515; 87086; 87088; 87186

== ENCOUNTER 2025-07-22 21:10 | Emergency (ER) | payer MEDICAID, SELFPAY ==
--- OUTSIDE RECORDS SUMMARY | 2025-07-18 13:00 | XMS_ITS | Encounter Summary ---
Author Organization [employer] Address [address] [facility] 7t [place] [address] Care Team Providers Care Cone Tender Name Role Phone Angela Taylor Primary Care Provider [phone] Encounter Details Date Type Department Care Team ([facility] st Contact Info) Description 07/18/2025 1:00 PM EDT Office Visit [facility] MEDICINE [address] [place], [place] [phone] Nicki Sanchez MD [address] [place], [place] [phone] UTI symptoms; Vaginal discharge Social History Tobacco [...] on file documented as of this encounter Procedures Procedure Name Priority Date/Time Associated Diagnosis Comments POCT URINALYSIS DIPSTICK Routine 07/18/2025 1:46 PM EDT UTI symptoms BACTERIAL VAGINOSIS PANEL Routine 07/18/2025 1:40 PM EDT Vaginal discharge CULTURE, URINE, ROUTINE Routine 07/18/2025 1:40 PM EDT UTI symptoms documented in this [...] Media Lot # [id number] Lot# Expiration Date 63,026 Urine 07/18/2025 1:46 PM EDT Nicki Barker MD POINT OF CARE TEST EN TER/EDIT ORDERABLES Final Result * Culture, Urine, Routine (07/18/2025 1:40 PM EDT) Urine Urine specimen obtained by clean catch procedure / Unknown 07/18/2025 1:40 PM EDT 07/18/2025 6:14 PM EDT Comment:UACC Narrative [facility] - 07/21/2025 7:51 AM EDT Escherichia coli Quant 50,000 to 100,000 cfu/mL Citrobacter koseri Quant 10,000 to 50,000 cfu/mL Escherichia coli: Ampicillin >=32(R) Escherichia coli: Cefazolin (Urine) 4(S) Escherichia coli: Cefepime <=0.12(S) Escherichia coli: Ceftriaxone <=0.25(S) Escherichia coli: Ciprofloxacin <=0.06(S) Escherichia coli: Gentamicin >=16(R) Escherichia coli: Nitrofurantoin <=16(S) Escherichia coli: Trimethoprim/Sulfamethoxazole >=320(R) Citrobacter koseri: Cefazolin 2(S) Citrobacter koseri: Cefepime <=0.12(S) Citrobacter koseri: Ceftriaxone <=0.25(S) Citrobacter koseri: Ciprofloxacin <=0.06(S) Citrobacter koseri: Gentamicin <=1(S) Citrobacter koseri: Nitrofurantoin 32(S) Citrobacter koseri: Trimethoprim/Sulfamethoxazole <=20(S) Specimen Source: Urine clean catch Nicki Barker MD LAB MICROBIOLOGY - GE NERAL ORDERABLES Final Result Performing Organization Address [facility] Co de Phone Number [facility] [address] [place] [phone] * Bacterial Vaginosis Panel (07/18/2025 1:40 PM EDT) TRICHOMONAS VAGINALIS DETECTION BY PCR NOT DETECTED Not Detect [facility] BACTERIAL VAGINOSIS DETECTION BY PCR NEGATIVE Negative [facility] Comment:The BV organism targ ets [...] of 14. NEVAEH GROUP DETECTION BY PCR NOT DETECTED Not Detect [facility] Nevaeh glab krusei PCR NOT DETECTED Not Detect [facility] Swab Vaginal structure / Unknown 07/18/2025 1:40 PM EDT 07/18/2025 6:14 PM EDT us Nicki Barker MD LAB MICROBIOLOGY - GE NERAL ORDERABLES Final Result Performing Organization Address [facility] Co de Phone Number [facility] [address] [place] [phone] documented in this encounter Visit Diagnoses Diagnosis UTI symptoms Vaginal discharge Leukorrhea, not specified as infective documented in this encounter Additional Health Concerns Assessment Noted Time PHQ-9 Depression Total Score: 7 01/19/20 10:46 AM EDT documented as of this encounter Care Teams Cone Tender Relationship Specialty Start Date End Date Angela Taylor DO [address] [place] [phone] PCP - General Family Medicine 01/18/25 documented as of this encounter
--- NOTE | 2025-07-22 | ECG_ITS ---
Test Reason : DIZZY Blood Pressure : */* mmHG Vent. Rate : 53 BPM Atrial Rate : 53 BPM P-R Int : 136 ms QRS Dur : 80 ms QT Int : 442 ms P-R-T Axes : 56 90 64 degrees QTcB Int : 414 ms Sinus bradycardia Rightward axis Borderline ECG When compared with ECG of 15-Feb-2023 10:02, No significant change was found Referred By: Generic ED Physician Electronically Signed By: TYLER NUNEZ MD
--- OUTSIDE RECORDS SUMMARY | 2025-07-22 14:20 | XMS_ITS | Encounter Summary ---
Author Organization [employer] Address [address] [facility] [address] [place] [address] Care Team Providers Care County Library Director Name Role Phone AníbalAngela barrios Primary Care Provider Reason for Visit * Reason Comments Dizziness Encounter Details Date Type Department Care Team ([facility] st Contact Info) Description 07/22/2025 2:20 PM EDT Office Visit [facility] [address] [place] [address] Dizziness (Primary Dx) Social History Tobacco Use Types Packs/Day Years [...] Sign Reading Time Taken Comments Blood Pressure 114/72 07/22/2025 2:30 PM EDT Pulse 75 07/22/2025 2:30 PM EDT Temperature 36.9 C (98.5 F) 07/22/2025 2:30 PM EDT Respiratory Rate 17 07/22/2025 2:30 PM EDT Oxygen Saturation 97% 07/22/2025 2:30 PM EDT Inhaled Oxygen Concentration - - Weight 60.9 kg (134 lb 3.2 oz) 07/22/2025 2:30 P M EDT Height 167.6 cm (5' 6 ) 07/22/2025 2:30 PM EDT Body Mass Index 21.66 07/22/2025 2:30 PM EDT documented in this encounter Plan of Treatment Not on file documented as of this encounter Procedures Procedure Name Priority Date/Time Associated Diagnosis Comments POCT , URINE Routine 07/22/2025 3:21 PM EDT Dizziness documented in this encounter Results * POCT Urine (07/22/2025 3:21 PM EDT) Preg Test, Ur Negative Negative, Indeterminate, None Detected, Invalid, Specimen unsatisfactory for evaluation, Weakly Positive, 2+ Urine 07/22/2025 3:21 PM EDT us Aleena Chaney PRINCIPAL SECURITY ARCHITECT POINT OF CARE TEST ENTER/EDIT O RDERABLES Final Result documented in this encounter Visit Diagnoses Diagnosis Dizziness- Primary Dizziness and giddiness documented in this encounter Additional Health Concerns Assessment Noted Time PHQ-9 Depression Total Score: 7 01/19/20 10:46 AM EDT documented as of this encounter Care Teams County Library Director Relationship Specialty Start Date End Date Angela Taylor DO [address] [place] [phone] PCP - General Family Medicine 01/18/25 documented as of this encounter
[2025-07-22 21:18] VITALS: BP 112/54; PULSE 62; RESP 18; TEMP 36.8; O2SAT 100; BMI 21.3
[2025-07-22 21:50] LABS: Hematocrit 36.5 % (37.0-47.0); Hemoglobin 12.4 g/dl (12.0-16.0); Imm Gran Abs Auto 0.01 X10*3/uL (0.00-0.03); Imm Gran Pct Auto 0.1 % (0.0-0.4); Lymphocytes Absolute Auto 2.7 X10*3/uL (1.2-4.9); Mean Corpuscular HGB Conc 34.0 g/dl (31.0-35.0); Mean Corpuscular Hemoglobin 30.0 pg (27.0-33.0); Mean Corpuscular Volume 88.4 fL (80.0-98.0); NRBC Abs Auto 0.000 X10*3/uL (0.0-0.012); NRBC Pct Auto 0.0 /100WBC (0.0-0.2); Platelet Count 231 X10*3/uL (160-400); Red Blood Count 4.13 X10*6/uL (4.20-5.50); White Blood Count 7.1 X10*3/uL (4.8-10.8)
[2025-07-22 21:51] LABS: MANUAL DIFF FLAG NO
[2025-07-22 22:13] LABS: Alanine Aminotransferase 14 U/L (0-31); Albumin Level 4.3 g/dL (3.5-5.0); Alkaline Phosphatase 73 U/L (39-117); Anion Gap 11 (12-20); Aspartate Amino Transferase 23 U/L (5-31); Blood Urea Nitrogen 11 mg/dL (9-16); Calcium 8.8 mg/dL (8.4-10.2); Carbon Dioxide 27 mmol/L (22-29); Chloride 107 mmol/L (96-108); Creatinine Clr Calc Pharmacy 103.6; Estimated Glomerular Filt Rate > 60; Magnesium 2.0 mg/dL (1.6-2.6); Potassium 3.7 mmol/L (3.3-5.1); Sodium 141 mmol/L (135-145); Total Protein 6.9 g/dL (6.5-8.0)
--- NOTE | 2025-07-23 00:05 | ED.GENADULT ---
HPI - General Adult General Chief complaint: General Medical Stated complaint: dizziness, painful eyelids Time Seen by Provider: 07/23/25 00:04 Source: patient Limitations: language barrier History of Present Illness ED Provider: Liz Cerda PA-C HPI narrative: 25-year-old female presents with multiple complaints. Patient states she has felt unwell for the past 3 days. Associated dizziness, headache, and ear pressure. Patient was seen by her primary care provider, was found to have a urinary tract infection, was discharged on Macrobid. They change the antibiotic, they told her perhaps her symptoms were secondary to the antibiotic. Denies nausea vomiting, active cough, or sick contacts with viral symptoms. Related Data Home Medications ?Medication ?Instructions ?Recorded ?Confirmed etonogestrel 68 mg subdermal subdermal 03/02/23 03/02/23 implant (Nexplanon) Previous Rx's ?Medication ?Instructions ?Recorded meclizine 25 mg tablet 25 mg PO BID PRN dizziness #7 tabs 07/23/25 Allergies Allergy/AdvReac Type Severity Reaction Status Date / Time SEAFOOD Allergy Unknown ANAPHYLAXIS Uncoded 07/22/25 21:23 Shell fish Allergy Unknown swelling Uncoded 07/22/25 21:23 Review of Systems Review of Systems: Yes all other systems are reviewed and are negative Constitutional: Constitutional: Denies fatigue, Denies fever(s), Reports headache(s) and Reports malaise ENT: Reports dizziness, Reports otalgia and Reports headache(s) Cardiovascular: Cardiovascular: Denies chest pain and Denies dyspnea Respiratory: Respiratory: Denies cough and Denies dyspnea Gastrointestinal: Gastrointestinal: Denies nausea and Denies vomiting Neurologic: Reports dizziness and Reports headache(s) Endocrine: Endocrine: Denies fatigue PMFSH Past Medical History Attestation statement: The following information was validated with the patient. Medical History No pertinent past medical history Family History Family History Maternal Grandmother Diabetes mellitus Paternal Grandfather Diabetes mellitus HTN (hypertension) Maternal Grandfather HTN (hypertension) Maternal Grandfather Liver cancer Sister Ovarian cancer Social History Social History Alcohol intake: never Patient Tobacco Use Status: Never used Tobacco Advance Directives: No Advance Directives Information Provided: Yes Gender identity: Female Physical Exam ED Vital Signs: Vital Signs - 24 hr 07/22/25 21:18 07/23/25 00:35 07/23/25 00:35 Temperature 98.2 F 98.2 F Pulse Rate 62 60 60 Respiratory Rate 18 16 Blood Pressure 112/54 L 117/67 117/67 Pulse Oximetry 100 98 Oxygen Delivery Method Room Air Room Air 07/23/25 00:35 07/23/25 00:36 Temperature Pulse Rate 65 68 Respiratory Rate Blood Pressure 125/67 126/78 Pulse Oximetry Oxygen Delivery Method BMI result Body Mass Index 21.3 Const Other: Alert well-appearing Orientation/consciousness: patient oriented x3 HENMT Other: Bilateral TMs are dull no overlying erythema, exam was non painful Eyes Other: No nystagmus Resp Effort & Inspection: normal respiratory effort Cardio Other: Normal peripheral perfusion Skin Other: Warm dry no rash Neuro Other: No ataxia General: patient oriented x3, gait normal, no focal motor deficits and CN's II-XI intact bilaterally Psych Other: Cooperative Course Reevaluation(s) Reevaluation #1: Symptoms improved after meclizine Medications Administered Discontinued Medications Generic Name Dose Route Start Last Admin Trade Name Freq PRN Reason Stop Dose Admin Meclizine HCl 25 mg 07/23/25 01:51 07/23/25 02:03 Meclizine Hcl 25 Mg Tablet PO 07/23/25 01:52 25 mg ONCE ONE Administration Medical Decision Making Medical Decision Making MDM Narrative: 25-year-old female presents with multiple complaints. Patient states she has felt unwell for the past 3 days. Associated dizziness, headache, and ear pressure. Patient was seen by her primary care provider, was found to have a urinary tract infection, was discharged on Macrobid. They change the antibiotic, they told her perhaps her symptoms were secondary to the antibiotic. Denies nausea vomiting, active cough, or sick contacts with viral symptoms. No chronic issues History: Per patient I have considered the following differential diagnoses: Serous otitis, labyrinthitis, dehydration, electrolyte abnormality, anemia, new arrhythmia, vertigo, side-effect of Macrobid Plan: The patient is exam was not consistent with vertigo, she has no nystagmus. She does however have serous otitis, this is the likely cause of her dizziness. It could have been compounded by the use of the Macrobid, she is discontinue that antibiotic. Screening labs and an EKG obtained, there was no new arrhythmia, she is not dehydrated there were no electrolyte abnormalities she is not anemic. Giving a dose of meclizine. I have independently reviewed the following tests: Labs: No leukocytosis, not anemic, no electrolyte abnormality noted, not EKG: Sinus bradycardia, rate of 53, no ischemic changes no ectopy QTC 414 Differential Diagnosis Differential Diagnoses: The differential diagnosis associated with the presentation includes See medical decision-making Admission/Observation Consideration of admission/observation: Escalation of care including admission/observation considered Not applicable Lab Data MDM Lab Attestation statement: I reviewed the patient's lab results. 07/22/25 21:37 07/22/25 21:37 Labs: Lab Results 07/22/25 Range/Units 21:37 WBC 7.1 (4.8-10.8) X10*3/uL RBC 4.13 L (4.20-5.50) X10*6/uL Hgb 12.4 (12.0-16.0) g/dl Hct 36.5 L (37.0-47.0) % MCV 88.4 (80.0-98.0) fL MCH 30.0 (27.0-33.0) pg MCHC 34.0 (31.0-35.0) g/dl RDW 12.3 (11.0-16.0) % Plt Count 231 (160-400) X10*3/uL MPV 10.4 (9.4-12.3) fL Immature Gran % (Auto) 0.1 (0.0-0.4) % Neut % (Auto) 51.1 (45-73) % Lymph % (Auto) 38.2 (20-40) % Dorado % (Auto) 6.2 (2-11) % Eos % (Auto) 3.8 (0-4) % Baso % (Auto) 0.6 (0-2) % Lymph # (Auto) 2.7 (1.2-4.9) X10*3/uL Dorado # (Auto) 0.4 (0.1-1.2) X10*3/uL Eos # (Auto) 0.3 (0.0-0.4) X10*3/uL Baso # (Auto) 0.0 (0.0-0.2) X10*3/uL Abs Immat Gran (auto) 0.01 (0.00-0.03) X10*3/uL Absolute Neuts (auto) 3.6 (2.0-8.3) x10*3/uL Absolute Nucleated RBC 0.000 (0.0-0.012) X10*3/uL Nucleated RBC % (auto) 0.0 (0.0-0.2) /100WBC Sodium 141 (135-145) mmol/L Potassium 3.7 (3.3-5.1) mmol/L Chloride 107 (96-108) mmol/L Carbon Dioxide 27 (22-29) mmol/L Anion Gap 11 L (12-20) BUN 11 (9-16) mg/dL Creatinine 0.77 (0.5-1.4) mg/dL Estim Creat Clear Calc 103.6 Estimated GFR > 60 Random Glucose 100 (60-115) mg/dL Calcium 8.8 (8.4-10.2) mg/dL Magnesium 2.0 (1.6-2.6) mg/dL Total Bilirubin 0.4 (0.0-1.0) mg/dL AST 23 (5-31) U/L ALT 14 (0-31) U/L Alkaline Phosphatase 73 (39-117) U/L Total Protein 6.9 (6.5-8.0) g/dL Albumin 4.3 (3.5-5.0) g/dL Beta HCG, Quant < 2 mIU/mL Independent Interpretation I performed an independent interpretation of an: EKG Discharge Plan Discharge Clinical Impression: Serous otitis media, Vertigo Patient Disposition: Home, Self-Care Instructions: Vertigo (ED), Dizziness (ED), Fluid In The Ear (Serous Otitis Media) (ED) Additional Instructions: All of your screening labs were normal. Your dizziness could be secondary to vertigo versus the fluid within your in her ears. You could also simply be coming down with viral syndrome. See home care instructions. Use dnhc-dzz-qlehnby Zyrtec daily for the next few weeks, this will help alleviate the fluid in the inner ears. Use the meclizine as needed for dizziness. Follow up with your primary care provider as needed. Prescriptions: New meclizine 25 mg tablet 25 mg PO BID PRN (Reason: dizziness) Qty: 7 0RF No Action Nexplanon 68 mg implant subdermal Interventions: ED Discharge Assessment Last Done: 07/23/25 02:06 Discharge Date/Time: 07/23/25 02:07 Print Language: Syriac
[2025-07-23 00:35] VITALS: BP 117/67; BP 125/67; PULSE 60; PULSE 65; RESP 16; TEMP 36.8; O2SAT 98
[2025-07-23 00:36] VITALS: BP 126/78; PULSE 68
--- OUTSIDE RECORDS SUMMARY | 2025-07-23 00:44 | XMS_ITS | Clinical Summary ---
Author Organization [employer] Address [address] [facility] 7t [place] [address] Care Team Providers Care Night Clerk Name Role Phone AníbalAngela barrios Primary Care Provider Allergies Active Allergy [...] and at bedtime (pain). 150 g 3 Active nitrofurantoin, macrocrystal-mono hydrate, (Macrobid) 100 MG capsuleIndication s:UTI symptoms Take 1 capsule (100 mg) by mouth 2 times daily for 7 days. 14 capsule 5 07/25/20 25 Active sulfamethoxazole- trimethoprim (Bactrim DS) 800-160 MG tablet Take 1 tablet by mouth 2 times daily for 3 days. 6 tablet 5 07/25/20 25 Active Active Problems Patient [...] Encounters Date Type Department Care Team Description 07/22/2025 2:20 PM EDT Office Visit [facility] [address] [address] Dizziness (Primary Dx) 07/22/2025 Travel 07/22/2025 Telephone [facility] [address] [place] [address] Angela Taylor DO Nurse Triage 07/18/2025 1:00 PM EDT Office Visit [address] [address] Nicki Sanchez MD UTI symptoms; Vaginal discharge 07/18/2025 Travel 07/18/[address] [address] Angela Taylor DO Nurse Triage 05/30/2025 11:20 AM EDT Office Visit [facility] [address] [place] [phone] Angela Taylor DO COVID-19 (Primary Dx); Acute pain of right shoulder 05/30/2025 Travel 05/30/[address] [address] Angela Taylor DO Nurse Triage 04/22/[address] [address] Angela Taylor DO from Last 3 Months [...] Mass Index 21.66 07/22/2025 2:30 PM EDT Plan of Treatment Health Maintenance Due Date Last Done Comments HPV Vaccines (3 - 3-dose series) 11/27/2016 08/23/2016, 05/27/2016 COVID-19 Vaccine ( season) 2025 Influenza Vaccine (#1) 2025 Alcohol/Substance Use Screening 01/18/2026 01/18/2025 Depression Screening 01/18/2026 01/18/2025, 01/19/20 25 Disability Screening 01/18/2026 01/18/2025 SDOH Screening 01/18/2026 [...] Procedure Name Priority Date/Time Associated Diagnosis Comments HCG, TOTAL, QN Routine 07/22/2025 9:37 PM EDT Yeast infection MAGNESIUM Routine 07/22/2025 9:37 PM EDT Yeast infection COMPREHENSIVE METABOLIC PANEL Routine 07/22/2025 9:37 PM EDT Yeast infection CBC WITH AUTO DIFFERENTIAL Routine 07/22/2025 9:37 PM EDT Yeast infection POCT , URINE Routine 07/22/2025 3:21 PM EDT Dizziness POCT URINALYSIS DIPSTICK Routine 07/18/2025 1:46 PM EDT UTI symptoms CULTURE, URINE, ROUTINE Routine 07/18/2025 1:40 PM EDT UTI symptoms BACTERIAL VAGINOSIS PANEL Routine 07/18/2025 1:40 PM EDT Vaginal discharge POCT COVID-19 AG WILKINSON ID NOW Routine [...] Relevant to Health Maintenance Results * (ABNORMAL) CBC auto differential (07/22/2025 9:37 PM EDT) White Blood Count 7.1 4.8 - 10.8 X10*3/uL [facility] Red Blood Count 4.13(L) 4.20 - 5.50 X10*6/uL [facility] Hemoglobin 12.4 12.0 - 16.0 g/dl [facility] Hematocrit 36.5(L) 37.0 - 47.0 % [facility] Mean Corpuscular Volume 88.4 80.0 - 98.0 fL [facility] Mean Corpuscular Hemoglobin 30.0 27.0 - 33.0 pg [facility] Mean Corpuscular HGB Conc 34.0 31.0 - 35.0 g/dl [facility] Red Cell Distribution Width 12.3 11.0 - 16.0 % [facility] Platelet Count 231 160 - 400 X10*3/uL [facility] Mean Platelet Volume 10.4 9.4 - 12.3 fL [facility] Neutrophils Percent Auto 51.1 45 - 73 % [facility] Imm Gran Pct Auto 0.1 0.0 - 0.4 % [facility] Lymphocytes Percent Auto 38.2 20 - 40 % [facility] Monocytes Percent Auto 6.2 2 - 11 % [facility] Eosinophils Percent Auto 3.8 0 - 4 % [facility] Basophils Percent Auto 0.6 0 - 2 % [facility] NRBC Pct Auto 0.0 0.0 - 0.2 /100WBC [facility] Neutrophils Absolute Auto 3.6 2.0 - 8.3 x10*3/uL [facility] Imm Gran Abs Auto 0.01 0.00 - 0.03 X10*3/uL [facility] Lymphocytes Absolute Auto 2.7 1.2 - 4.9 X10*3/uL [facility] Monocytes Absolute Auto 0.4 0.1 - 1.2 X10*3/uL [facility] Eosinophils Absolute Auto 0.3 0.0 - 0.4 X10*3/uL [facility] Basophils Absolute Auto 0.0 0.0 - 0.2 X10*3/uL [facility] NRBC Abs Auto 0.000 0.0 - 0.012 X10*3/uL [facility] 07/22/2025 9:37 PM EDT 07/22/2025 9:47 PM EDT us Generic External Data Provider LAB BLOOD ORDERAB LES Final Result [facility] [address] [place] [phone] * hCG, Total, Quantitative (07/22/2025 9:37 PM EDT) HCG Quantitative <2 mIU/mL [facility] Comment:Weeks post LMP Appro ximate hCG(Last Menstrual Period) Range (mIU/ml)3 - 4 weeks 9 - 1304 - 5 weeks 75 - 2,6005 - 6 weeks 850 - 20,8006 - 7 weeks 4000 - 100,2007 - 12 weeks 11,500 - 289,27327 - 16 weeks 18,300 - 137,79218 - 29 weeks (2nd trimester) 1,400 - 53,97671 - 41 weeks (3rd trimester) 940 - 60,000The Wilkinson B- hCG assay is used for the early detection ofpregnancy; it cannot be used to diagnose any conditionunrelated to . If a B-hCG level is not supportedby the clinical evidence, results should be confirmed by analternative method (qualitative urine hCG, for example). 07/22/2025 9:37 PM EDT 07/22/2025 9:47 PM EDT Generic External Data Provider LAB BLOOD ORDERAB LES Final Result Performing Organization Address [facility] de Phone Number [facility] [address] [place] [phone] * Magnesium (07/22/2025 9:37 PM EDT) Pathologist [facility] Magnesium 2.0 1.6 - 2.6 mg/dL [facility] 07/22/2025 9:37 PM EDT 07/22/2025 9:47 PM EDT Generic External Data Provider LAB BLOOD ORDERAB LES Final Result Performing Organization Address [facility] de Phone Number [facility] [address] [place] [phone] * (ABNORMAL) Comprehensive Metabolic Panel (07/22/2025 9:37 PM EDT) Pathologist [facility] Sodium 141 135 - 145 mmol/L [facility] Potassium 3.7 3.3 - 5.1 mmol/L [facility] Chloride 107 96 - 108 mmol/L [facility] Carbon Dioxide 27 22 - 29 mmol/L [facility] Anion Gap 11(L) 12 - 20 [facility] Urea Nitrogen (BUN) 11 9 - 16 mg/dL [facility] Creatinine, Serum 0.77 0.5 - 1.4 mg/dL [facility] Creatinine Clr Calc Pharmacy 103.6 [facility] Comment:Provided height and weight: 167.64 cm,59.8 kg.eGFR (calculated from the MDRD study equation) and eCrCl(calculated from the Cockcroft-Gault equation) are based ondifferent parameters and may not yield comparable results.If eCrCl result is absurd, please check patient'sheight/weight. Estimated Glomerular Filt Rate >60 [facility] Comment:Chronic Kidney Disea se: Estimated GFR < 60 mL/min/1.85b5Ddrzad Kidney Disease: Estimated GFR < 15 mL/min/1.73m2 Glucose 100 60 - 115 mg/dL [facility] Calcium 8.8 8.4 - 10.2 mg/dL [facility] Bilirubin, Total 0.4 0.0 - 1.0 mg/dL [facility] Aspartate Amino Transferase 23 5 - 31 U/L [facility] Alanine Aminotransferase 14 0 - 31 U/L [facility] Total Protein 6.9 6.5 - 8.0 g/dL [facility] Albumin Level 4.3 3.5 - 5.0 g/dL [facility] Alkaline Phosphatase 73 39 - 117 U/L [facility] 07/22/2025 9:37 PM EDT 07/22/2025 9:47 PM EDT us Generic External Data Provider LAB BLOOD ORDERAB LES Final Result [facility] [address] [place] [phone] * POCT Urine (07/22/2025 3:21 PM EDT) Preg Test, Ur Negative Negative, Indeterminate, None Detected, Invalid, Specimen unsatisfactory for evaluation, Weakly Positive, 2+ Urine 07/22/2025 3:21 PM EDT Aleena Chaney NP POINT OF CARE TEST ENTER/EDIT O RDERABLES Final Result * (ABNORMAL) POCT Urinalysis (07/18/2025 1:46 PM [...] Media Lot # [id number] Lot# Expiration Date 66 Urine 07/18/2025 1:46 PM EDT Nicki Barker MD POINT OF CARE TEST EN TER/EDIT ORDERABLES Final Result * Bacterial Vaginosis Panel (07/18/2025 1:40 PM EDT) TRICHOMONAS VAGINALIS DETECTION BY PCR NOT DETECTED Not Detect [facility] BACTERIAL VAGINOSIS DETECTION BY PCR NEGATIVE Negative [facility] Comment:The BV organism targ ets of [...] DETECTION BY PCR NOT DETECTED Not Detect [facility] Nevaeh glab krusei PCR NOT DETECTED Not Detect [facility] Swab Vaginal structure / Unknown 07/18/2025 1:40 PM EDT 07/18/2025 6:14 PM EDT Nicki Barker MD LAB MICROBIOLOGY - GE NERAL ORDERABLES Final Result [facility] [address] [place] [phone] * Culture, Urine, Routine (07/18/2025 1:40 PM EDT) Urine Urine specimen obtained by clean catch procedure / Unknown 07/18/2025 1:40 PM EDT 07/18/2025 6:14 PM EDT Comment:UACC Narrative [facility] - 07/21/2025 7:51 AM EDT Escherichia [...] Trimethoprim/Sulfamethoxazole <=20(S) Specimen Source: Urine clean catch us Nicki Barker MD LAB MICROBIOLOGY - NERWV ORDERABLES Final Result [facility] [address] [place] [phone] * (ABNORMAL) POCT Rapid Covid-19 WILKINSON ID NOW (05/30/2025 11:17 AM EDT) [facility] Coronavirus Antigen PCR Positive (A) Negative, Indeterminate, None Detected, Invalid, Specimen unsatisfactory for evaluation, Weakly Positive, 2+ QC Media Lot # [id number] Lot# Expiration Date 6 Swab 05/30/2025 11:1 7 AM EDT us Angela Taylor DO POINT OF CARE TEST ENTER/ROLANDO T ORDERABLES Final Result * POCT Rapid Influenza A WILKINSON ID NOW (05/30/2025 11:16 AM EDT) [facility] Influenza A Negative Negative, Indeterminate [facility] QC Media Lot # [id number] [facility] Lot# Expiration Date [facility] Swab 05/30/2025 11:1 6 AM EDT us Angela Taylor DO POINT OF CARE TEST ENTER/ROLANDO T ORDERABLES Final Result Performing Organization Address [facility]/ZIP Co de Phone Number [facility] [address] [place] [phone] * POCT Rapid Influenza B WILKINSON ID NOW (05/30/2025 11:15 AM EDT) Pathologist [facility] Influenza B Negative Negative, Indeterminate [facility] QC Media Lot # [id number] [facility] Lot# Expiration Date [facility] Swab 05/30/2025 11:1 5 AM EDT us Angela Taylor DO POINT OF CARE TEST ENTER/ROLANDO T ORDERABLES Final Result Performing Organization Address [facility] de Phone Number [facility] [address] [place] [phone] * Hepatitis C Antibody with Reflex to HCV, RNA, Quantitative, Real-Time PCR (01/18/2025 10:46 AM EDT) Pathologist [facility] Hepatitis C Antibody Nonreactive Nonreactive [facility] Comment:Antibodies to HCV no t detected; does not exclude early acuteHCV infection. Blood Venous blood specimen / Unknown 01/18/2025 10:46 AM EDT 01/18/2025 1:21 PM EDT us Angela Taylor DO LAB BLOOD ORDERABLES Final R esult Performing Organization Address [facility] Co de Phone Number [facility] [address] [place] [phone] * HIV-1/2 Antigen and Antibodies, Fourth Generation, with Reflexes (01/18/2025 10:46 AM EDT) HIV AB/AG Nonreactive Nonreactive [facility] Comment:HIV-1 p24 Ag and/or HIV-1/HIV-2 Ab not detected.A test result that is nonreactive does not exclude thepossibility of exposure to or infection with HIV-1 and/orHIV-2. Nonreactive results in this assay for individualswith prior exposure to HIV-1 and/or HIV-2 may be due toantigen and antibody levels that are below the limit ofdetection of this assay.The InfoBasis HIV Ag/Ab Combo assay result andsupplemental assay results should be interpreted inconjunction with the patient's clinical presentation,history and other laboratory results. If the results areinconsistent with clinical evidence, additional testing issuggested to confirm the result. Blood Venous blood specimen / Unknown 01/18/2025 10:46 AM EDT 01/18/2025 1:21 PM EDT us Angela Taylor DO LAB BLOOD ORDERABLES Final R esult [facility] [address] [place] [phone] * Pap Smear (03/02/2023 3:26 PM EDT) 03/02/2023 3:26 PM EDT 03/08/2023 8:30 AM EDT Narrative [facility] - 03/28/2023 11:43 AM EDT ----- ------- Name: Sheela Gilmore Age/Sex: 22/F : 2000 Unit#: [id number] [facility]23 Status: DEP REF Location: [id number] Disch: ----- ------- SPEC : [id number] RECD: 03/08/23 STATUS: BUBBA FIELD NUM: [id number] SYED: 03/02/23-[address] ENTERED: 03/08/23-1019 SP TYPE: Pap Smr OTHR DR: Angela Taylor DO ORDERED: Pap Smear Interpretation Satisfactory for evaluation. Mild inflammation. Negative for intraepithelial lesion or malignancy. Clinical Information LMP: 12/12/22 Previous PAP test: Unknown date/findings Material Received ThinPrep-Cervical Copies To: Angela Taylor DO [address] [place] [address] [address] Quan [address] [address] ----- ------- Signed (signature on file) ALISON Goddard ([facility]) 03/28/23 1143 ----- ------- END OF REPORT [employer] External Provider LAB CYT OLOGY ORDERABLES Final Result [facility] [address] [place] [phone] from Last 3 Months or Most Recently Relevant to Health Maintenance Insurance [place] C[place] * Guarantor: Sheela Gilmore Account Type Relation to Patient Date of Phone Billing Address Personal/Family Self [place] * Guarantor: Sheela Gilmore Account Type Relation to Patient Date of Phone Billing Address Personal/Family Self [place] * Guarantor: Sheela Gilmore Account Type Relation to Patient Date of Phone Billing Address Personal/Family Self [place] Care Teams Night Clerk Relationship Specialty Start Date End Date Angela Taylor DO [address] [place] [address] PCP - General Family Medicine 01/18/25
--- OUTSIDE RECORDS SUMMARY | 2025-07-23 00:44 | XMS_ITS | Encounter Summary ---
Author Organization [employer] Address [address] 7[address] [place] [address] Care Team Providers Care Account Adjuster Name Role Phone Angela Taylor DO Primary Care Provider Encounter Details Date Type Department Care Team (Latest Contact Info) Description 07/22/2025 Travel Social History Tobacco Use Types Packs/Day [...] documented as of this encounter Care Teams Account Adjuster Relationship Specialty Start Date End Date Angela Taylor DO [address] [place] [address] PCP - General Family Medicine 01/18/25 documented as of this encounter
--- OUTSIDE RECORDS SUMMARY | 2025-07-23 00:44 | XMS_ITS | Clinical Summary ---
Author Organization [facility] Address [address] [facility] [address] [place] [address] Phone Care Team Providers Care Cheese Maker Name Role Phone Angela Taylor DO Primary Care Provider [phone] Allergies Active Allergy Reactions Criticality Noted Date [...] 2025 INFLUENZA VACCINE (#1) 2025 COVID-19 VACCINE (2024-2 6 season) 2025 Adult Td,Tdap Booster 05/27/2026 05/27/2016 [...] ACO C3 ACO C3 ACO Care Teams Cheese Maker Relationship Specialty Start Date End Date Angela Taylor DO [address] [place] [address] PCP - General Family Medicine 12/23/22 Additional Source Comments The information contained in this document represents components of the legal health record. It is not the complete legal health record.[facility]
--- OUTSIDE RECORDS SUMMARY | 2025-07-23 00:44 | XMS_ITS | Clinical Summary ---
Author Organization [facility] Address [address] [place] [phone] Care Team Providers Care Mortgage Analyst Name Role Phone Angela Taylor DO Primary Care Provider [phone] Surgical History Surgery Date Site/Laterality Comments OTHER [...] age to complete this topic Care Teams Mortgage Analyst Relationship Specialty Start Date End Date Angela Taylor DO [address] [place] [address] PCP - General Internal Medicine 05/11/18
--- OUTSIDE RECORDS SUMMARY | 2025-07-23 00:44 | XMS_ITS | Encounter Summary ---
Author Organization [facility] Address [address] [facility] 7t [place] [address] Care Team Providers Care Shredding Machine Knife Changer Name Role Phone Angela Taylor DO Primary Care Provider [phone] Reason for Visit * Reason Onset Date Comments Nurse Triage 07/22/2025 Encounter Details Date Type Department Care Team ([facility] st Contact Info) Description 07/22/2025 Telephone [facility] [address] [place], [place] [phone] Angela Taylor DO [address] [place], [place] [phone] Nurse Triage Social History Tobacco Use Types [...] encounter Miscellaneous Notes * Telephone Encounter - Vicky Morales RN - 07/22/2025 2:05 PM EDT Pt called triage line reporting dizziness and headache x 3 days, recent UTI, is on Nitrofurantin. Protocol Used: Dizziness (Adult) Protocol-Based Disposition: See in Office or Video Visit Today Video visit offer not recorded Positive Triage Questions: * Moderate dizziness (e.g., interferes with normal activities) (Exception: Dizziness caused by heatexposure, sudden standing, or poor fluid intake.) * Patient wants to be seen * All higher-acuity triage questions were negative Care Advice Discussed: * Sit Up Slowly Before Standing * Drink Fluids * Reasons To Call Back - You pass out (faint) or are too weak to stand - You become worse Pt instructed to come to walk in center, pt states she will come in now. * Telephone Encounter - Darwin Vallejo - 07/22/2025 1:46 PM EDT Symptom: Dizziness Outcome: Schedule an urgent appointment (within 4 hours) or talk to a nurse or provider soon Reason: Started within the past 3 days The caller accepted this outcome. Italian Speaking documented in this encounter Plan of Treatment Not on file documented as of this encounter Visit Diagnoses Not on filedocumented in this encounter Additional Health Concerns Assessment Noted Time PHQ-9 Depression Total Score: 7 01/19/20 10:46 AM EDT documented as of this encounter Care Teams Shredding Machine Knife Changer Relationship Specialty Start Date End Date Angela Taylor DO [address] [place] [address] PCP - General Family Medicine 01/18/25 documented as of this encounter
--- OUTSIDE RECORDS SUMMARY | 2025-07-23 00:45 | XMS_ITS | Encounter Summary ---
Author Organization [facility] Address [address] [facility] 7t [place] [address] Care Team Providers Care Phonograph Cartridge Assembler Name Role Phone Angela Taylor DO Primary Care Provider [phone] Reason for Visit * Reason Onset Date Comments Nurse Triage 07/18/2025 Encounter Details Date Type Department Care Team ([facility] st Contact Info) Description 07/18/2025 Telephone [facility] [address] [place], [place] [phone] Angela Taylor DO [address] [place], [place] [phone] Nurse Triage Social History Tobacco Use Types [...] Telephone Encounter - Mariam Alonzo RN - 07/18/2025 10:09 AM EDT No template layout worker needed as this comic writer speaks Nepali. Call returned to Sheela Daigle to triage below at [phone]. Reports having pain with urination x 3 [...] 07/18/2025 1:00 PM Nicki Barker MD MEDICINE [facility] Insurance verified as active per Real Time Eligibility in [facility]. Video visit offer not recorded Positive Triage Question: * Painful urination AND EITHER frequency or urgency * All higher-acuity triage questions were negative Care Advice Discussed: * Reassurance and Education - Possible Urine Infection * Drink Extra Fluids * Reasons To Call Back - Fever or back pain occurs - You become worse * Telephone Encounter - Mechelle Paitno - 07/18/2025 10:03 AM EDT Symptom: Urination Pain Outcome: Schedule an urgent appointment (within 1 hour) or talk to a nurse or provider soon Reason: Blood in urine The caller accepted this outcome. Contact pt at [phone] Need template layout worker documented in this encounter Plan of Treatment Not on file documented as of this encounter Visit Diagnoses Not on filedocumented in this encounter Additional Health Concerns Assessment Noted Time PHQ-9 Depression Total Score: 7 01/19/20 10:46 AM EDT documented as of this encounter Care Teams Phonograph Cartridge Assembler Relationship Specialty Start Date End Date Angela Taylor DO [address] [place] [phone] PCP - General Family Medicine 01/18/25 documented as of this encounter
--- OUTSIDE RECORDS SUMMARY | 2025-07-23 00:45 | XMS_ITS | Encounter Summary ---
Author Organization [employer] Address [address] 7[address] [place] [address] Care Team Providers Care Dot Etcher Apprentice Name Role Phone Angela Taylor DO Primary [...] documented as of this encounter Care Teams Dot Etcher Apprentice Relationship Specialty Start Date End Date Angela Taylor DO [address] [place] [address] PCP - General Family Medicine 01/18/25 documented as of this encounter
[2025-07-23 02:04] VITALS: BP 110/63; PULSE 71; RESP 16; TEMP 36.6; O2SAT 96
[2025-07-23 02:06] VITALS: BP 110/63; PULSE 71; RESP 16; TEMP 36.6; O2SAT 96
== END 2025-07-23 02:07 | disposition home or self-care (01) ==
PROVIDERS: Emergency Provider Emergency Medicine; PCP Family Medicine
DX: R42 Dizziness and giddiness (principal); H65.90 Unspecified nonsuppurative otitis media, unspecified ear; N39.0 Urinary tract infection, site not specified
CPT/HCPCS: 36415; 80053; 83735; 84702; 85025; 93005; 99283

== ENCOUNTER → 2025-07-22 21:32 | Outpatient (BNV) | payer MEDICAID, SELFPAY | PROVIDERS: Emergency Provider Emergency Medicine; PCP Family Medicine; Visit Provider Internal Medicine Cardiovascular Disease | DX: R00.1 Bradycardia, unspecified (principal) | CPT/HCPCS: 93010 ==